=== PATIENT | male | born 1945 | race Caucasian/White ===

== ENCOUNTER 2018-06-12 04:35 | Inpatient (IN) | payer MEDICARE ==
[~2018-06-12] VITALS: Ht 180.3 cm; Wt 132.0 kg
[~2018-06-12 04:35] MED LIST: ALBU90OI61 INH
[2018-06-12 04:51] LABS: BASOPHILS ABSOLUTE AUTO 0.04 K/mm3 (0.00-0.23); BASOPHILS PERCENT AUTO 1 % (0-2); EOSINOPHILS ABSOLUTE AUTO 0.09 K/mm3 (0.00-0.68); EOSINOPHILS PERCENT AUTO 1 % (0-6); Hematocrit 49.6 % (37.0-53.0); Hemoglobin 16.3 g/dL (13.5-17.5); IMMATURE GRAN ABSOLUTE AUTO 0.04 K/mm3 (0.00-0.10); IMMATURE GRAN PERCENT AUTO 1 % (0-1); LYMPHOCYTES ABSOLUTE AUTO 1.39 K/mm3 (0.84-5.20); LYMPHOCYTES PERCENT AUTO 16 % (21-46); MONOCYTES ABSOLUTE AUTO 1.11 K/mm3 (0.16-1.47); MONOCYTES PERCENT AUTO 13 % (4-13); Mean Corpuscular HGB 33.1 pg (26.0-34.0); Mean Corpuscular HGB Conc 32.9 g/dL (31.5-36.5); Mean Corpuscular Volume 101 fL (80-100); Mean Platelet Volume 10.5 fL (9.1-12.4); NEUTROPHILS ABSOLUTE AUTO 6.03 K/mm3 (1.96-9.15); NEUTROPHILS PERCENT AUTO 69 % (41-73); Platelet Count 190 K/mm3 (150-400); RDW Coefficient Variation 13.7 % (11.7-14.2); RDW Standard Deviation 51.2 fL (35.1-46.3); Red Blood Cell Count 4.93 M/mm3 (4.30-5.90)
[2018-06-12 05:02] LABS: PCO2 Arterial 46.3 mmHg (35-45); PO2 Arterial 54.6 mmHg (80-100); pH Blood Arterial 7.42 (7.35-7.45)
[2018-06-12 05:12] LABS: Alanine Aminotransfer (ALT/SGP 26 U/L (12-78); Albumin, Blood 3.6 g/dL (3.4-5.0); Albumin/Globulin Ratio 0.9 (0.8-1.8); Alk Phos 68 U/L (50-136); Anion Gap 7 mmol/L (6-16); Aspartate Aminotrans (AST/SGOT 18 U/L (12-37); Bilirubin, Total 0.6 mg/dL (0.1-1.0); Blood Urea Nitrogen 13 mg/dL (8-24); Bun/Creatinine Ratio 14.1 (12.0-20.0); CO2, Blood 30 mmol/L (21-32); Chloride, Blood 99 mmol/L (98-108); Creatinine, Blood 0.92 mg/dL (0.60-1.20); Glomerular Filtration Rate >60 (60-); Glucose, Blood 120 mg/dL (70-99); Potassium, Blood 4.2 mmol/L (3.5-5.5); Sodium, Blood 136 mmol/L (136-145); Total Protein, Blood 7.6 g/dL (6.4-8.2); Troponin I <0.015 ng/mL (0.000-0.040)
[2018-06-12] MEDS ORDERED: Albuterol2.5 MG/0.5 INH (05:13)
[2018-06-12] MEDS ORDERED: ALBU3IS INH (05:14)
[2018-06-12] MEDS ORDERED: Voltaren100 GM TOP (05:15)
[2018-06-12] MEDS ORDERED: LEVSOD150 PO (05:15)
[2018-06-12] MEDS ORDERED: MOME220I INH (05:16)
[2018-06-12] MEDS ORDERED: TRAM50 PO (05:16)
[2018-06-12] MEDS ORDERED: HYDCHL25 PO (05:17)
[2018-06-12] MEDS ORDERED: TIOT18 INH (05:27)
[2018-06-12] MEDS ORDERED: BUDE6HFA INH (05:29)
[2018-06-12] MEDS ORDERED: COMBIVENT RESPIM4 GM (05:29)
[2018-06-12] MEDS ORDERED: COMBIVENT RESPIM4 GM INH (05:30)
[2018-06-12 07:24] LABS: Adenovirus Not Detected (NOT DETECT); Bordetella pertussis Not Detected (NOT DETECT); Chlamydophila pneumoniae Not Detected (NOT DETECT); Coronavirus 229E Not Detected (NOT DETECT); Coronavirus HKU1 Not Detected (NOT DETECT); Coronavirus NL63 Not Detected (NOT DETECT); Coronavirus OC43 Not Detected (NOT DETECT); Human Metapneumovirus Not Detected (NOT DETECT); Human Rhinovirus/Enterovirus Not Detected (NOT DETECT); Influenza A/2009-H1 Not Detected (NOT DETECT); Influenza A/H1 Not Detected (NOT DETECT); Influenza A/H3 Not Detected (NOT DETECT); Influenza B Not Detected (NOT DETECT); Mycoplasma pneumoniae Not Detected (NOT DETECT); Parainfluenza Virus 1 Not Detected (NOT DETECT); Parainfluenza Virus 2 Not Detected (NOT DETECT); Parainfluenza Virus 4 Not Detected (NOT DETECT); Respiratory Syncytial Virus Not Detected (NOT DETECT)
--- NOTE | 2018-06-12 08:05 | NUR ---
ADMISSION ASSESSMENT: Pt arrived to room pcu 7 from ER via gurney. LS very coarse with wheezes and some rhonci in the bases. HR tachy but regular rhythm. BT positive. ABD distended but Pt states it is his normal. Pulses palp. Pt very SOB with any movement or talking. Labored breathing at rest. BIox 93% on 2l NC. Encouraged pt to wear bipap but refused at this time. Oriented to room and unit. Pt denies other needs at this time. Will continue to monitor.
[2018-06-12 08:36] LABS: Influenza A Not Detected (NOT DETECT); Parainfluenza Virus 3 Detected (NOT DETECT)
--- NOTE | 2018-06-12 19:58 | NUR ---
SHIFT SUMMARY: Pt has been resting in recliner for the majority fo the day. Pt still very SOB with any kind of exertion or talking. BIox has remained >90% on 2l or BIpap at 35%. Pt has tolerated the BIPap this afternoon and was able to nap without difficulty. VSS throughout shift. No changes in his LS through shift. HR has been SR to ST throughout shift. Will report to night rn.
--- NOTE | 2018-06-12 22:38 | NUR ---
ASSUMED CARE OF PATIENT AT APPROXIMATELY 1905 FROM BRIDGET Carvajal RN. PATIENT ALERT AND ORIENTED X4. PATIENT REPORTS DURING SHIFT CHANGE THAT HE FEELS VERY DEPRESSED; DURING SHIFT ASSESSMENT PATIENT REPORTS THAT HE DOESNT FEEL SUICIDAL BUT IF "I WAS GIVEN A PILL" THAT WOULD PUT HIM TO SLEEP FOREVER, HE "WOULD TAKE IT"; PATIENT EXPRESSES FEELING SAD ABOUT NOT GETTING OUT OF HIS HOUSE VERY OFTEN DUE TO THE SHORTNESS OF BREATH. PATIENT DENIES PAIN, CP/PRESSURE, DIZZINESS OR NAUSEA. PATIENT HAS CHRONIC N/T. ST ON TELE; OXYGEN SATURATION ABOVE 90% ON 2LPM VIA; PATIENT WILL WEAR BIPAP LATER TONIGHT WHEN HE GOES TO BED. PATIENT REPORTS HE WILL SLEEP IN RECLINER TONIGHT; HE REPORTS HE HASN'T SLEPT IN A BED IN OVER 2 YEARS. PIV S/L. PATIENT CURRENTLY SLEEPING IN RECLINER; CALL LIGHT IN REACH; WILL CONTINUE TO MONITOR AND ASSESS UNTIL END OF SHIFT.
[2018-06-13 04:08] LABS: Hematocrit 52.2 % (37.0-53.0); Mean Corpuscular HGB 31.9 pg (26.0-34.0); Mean Corpuscular HGB Conc 32.6 g/dL (31.5-36.5); Mean Platelet Volume 10.8 fL (9.1-12.4); Platelet Count 194 K/mm3 (150-400); RDW Coefficient Variation 13.5 % (11.7-14.2); RDW Standard Deviation 49.1 fL (35.1-46.3); Red Blood Cell Count 5.33 M/mm3 (4.30-5.90); White Blood Cell Count 14.01 K/mm3 (4.00-11.30)
[2018-06-13 04:09] LABS: Mean Corpuscular Volume 98 fL (80-100)
[2018-06-13 04:57] LABS: Anion Gap 8 mmol/L (6-16); CO2, Blood 27 mmol/L (21-32); Calcium, Blood 8.6 mg/dL (8.5-10.1); Glucose, Blood 145 mg/dL (70-99)
[2018-06-13 04:59] LABS: Alanine Aminotransfer (ALT/SGP 24 U/L (12-78); Albumin, Blood 3.4 g/dL (3.4-5.0); Albumin/Globulin Ratio 0.8 (0.8-1.8); Alk Phos 65 U/L (50-136); Aspartate Aminotrans (AST/SGOT 21 U/L (12-37); Bilirubin, Total 0.3 mg/dL (0.1-1.0); Blood Urea Nitrogen 23 mg/dL (8-24); Bun/Creatinine Ratio 29.9 (12.0-20.0); Chloride, Blood 101 mmol/L (98-108); Creatinine, Blood 0.77 mg/dL (0.60-1.20); Globulin, Blood 4.3 g/dL (2.2-4.0); Glomerular Filtration Rate >60 (60-); Potassium, Blood 4.6 mmol/L (3.5-5.5); Sodium, Blood 136 mmol/L (136-145); Total Protein, Blood 7.7 g/dL (6.4-8.2)
--- NOTE | 2018-06-13 06:09 | NUR ---
NO ACUTE CHANGES TO REPORT. PATIENT SLEPT WITH BIPAP ON FOR ABOUT SIX HOURS LAST NIGHT. WOKE UP AND STATED THE MASK GAVE HIM A HEADACHE; MEDICATED PER EMAR. PATIENT APPREARS ANXIOUS AT TIMES; TALKS AND DESATS TO HIGH 80'S; 2LPM VIA NC. PATIENT SLEPT IN RECLINCER MOST OF THE NIGHT; SLEPT A TOTAL OF APPROXIMATELY NINE HOURS. WILL CONTINUE TO MONITOR AND ASSESS UNTIL END OF SHIFT.
--- NOTE | 2018-06-13 07:45 | NUR ---
INITIAL ASSESSMENT: Pt sitting up in recliner chair on 3.5L oxygen per NC. Pt SOB with talking or any exertion at all. LS very diminished with wheezing throughout. BT positive, ABD distended but soft. HR reg. Pulses palp. Pt jokes around alot and states that this is his way of coping or "covering up" how depressed he is. VSS. Pt c/o pain in his headache and his chest when he coughs. Will treat per orders with tylenol..
--- NOTE | 2018-06-13 18:31 | NUR ---
shift summary: Pt sitting up in recliner chair on 3L NC oxygen. He has maintained his oxygen >90% on 3L nc or Bipap at 30% FIO2. The only time pt's oxygen decreased was when he removed his bipap and forgot to replace the oxygen. During these few minutes pt biox decreased to 84% on RA. REcovered quickly on the 3L NC. HR has remained stable in the 80-90's. Pt still seems to be depressed but he seems to be enjoying having people around to talk to. He is not suicidal at this time. Will continue to monitor for changes in his mood. No acute chages through shift. Will report to night RN.
--- NOTE | 2018-06-13 20:55 | NUR ---
PM NOTE. ASSUMED CARE OF PT APROX 1900, PT IS A&Ox4, PLEASENT AND COOPERATIVE WITH CARE BUT VERY ANXIOUS ABOUT HIS CURRENT HEALTH STATUS. PT WAS ADMITTED DUE TO COPD EXAC. PT IS ON 3.5L NC OR BIPAP AT 10/5 AND 30%. TELE INTAC, NSR W/PACS AND PVCS IN THE 90'S PER ROPING TENDER, BP 169/95, PT WAS VERY ANXIOUS DURING THE TIME THIS BP WAS TAKEN. 1+ EDEMA NOTED TO THE PT'S BLE. L/S DIM T/O W/WHEEZES. BT PRESENT BUY HYPOACTIVE, LARGE VENTRAL HERNIA NOTED TO PT'S ABD. ABD IS SOFT AND NONTENDER TO PALP. PT IS UP IN RECLINER CHAIR WITH BIPAP ON, PT IS VERY ANXIOUS, TALKING ABOUT HOW HE IS FEELING LIKE HIS LUNGS ARE "FILLING UP AND I CAN'T GET A COMPLETE BREATH IN." PT'S RR IS 31, LABORED BUT EVEN WITH ACCESSORY MUSCLE USE. CALL LIGHT IN REACH, BED IS LOCKED AND LOW, WILL CONTINUE TO MONITOR.
--- NOTE | 2018-06-13 22:24 | NUR ---
PT UPDATE... PROVIDER WAS CALLED WITH PT STATUS UPDATE, ORDERS WERE OBTAINED FOR ANTI-ANXIETY MEDICATION FOR THIS PT. MEDICATION WAS GIVEN PER ORDER, PT APPEARES TO BE RELAXED W/EYES CLOSED, RR HAS DECREASED FROM 31 TO 24 AND O2 STATS ARE 95 ON BIPAP. WILL CONTINUE TO MONITOR PT.
--- NOTE | 2018-06-14 06:33 | NUR ---
SHIFT SUMMARY. AT 0235 PT CONVERTED FROM A NSR TO SVT WITH RATES IN THE 180'S-190'S, PT WAS ON THE BIPAP AT THE TIME. HE WAS IN SVT FOR APROX 8 MINS BEFORE HE WAS ABLE TO VAGLE HIMSELF AND CONVERTED BACK TO NSR. PT'S BP WAS STABLE AT THIS TIME WELL HIS O2 STATS. A PALLIATIVE CARE CONSULT WAS PLACED DUE TO PT'S DEPRESSION AND SYMPTOM MANAGMENT NEEDS. PT WAS TALKING TO THIS RN ABOUT END OF LIFE ISSUES AND IS VERY FEARFUL OF BEING IN DISTRESS DURING HIS FINAL HOURS, THIS RN PROVIDED THERAPUTIC COMMUNICATION AND REASSURANCE. CALL LIGHT IN REACH,BED IS LOCKED AND LOW WILL CONTINUE TO MONITOR UNTIL REPORT IS GIVEN TO ONCOMING RN.
--- NOTE | 2018-06-14 18:10 | NUR ---
END OF SHIFT; PT REMAINS SITTING IN CHAIR NEXT TO HIS BED THROUGHOUT DAY. ONLY GETTING UP TO USE COMMODE X 1. HE REPOSTIONS HIMSELF IN CHAIR THROUGHOUT DAY. HE HAS PLEASANT AFFECT. LUNGS ARE DIM AND COARSE THROUGHOUT. EXPIRATORY WHEEZES ARE NOTED AT THIS TIME. HE IS AO X 4. PROCESS SAFETY SPECIALIST MET WITH PATIENT TODAY ABOUT HIS LIVING ARRANGEMENTS AND HIS DC. PER PATIENT HE IS REFUSING TO GO TO A SNF FACILITY. [facility] ONT[facility] TO MONITOR THIS PATIENT UNTIL REPORT AND HAND OFF TO NOC SHIFT RN.
--- NOTE | 2018-06-14 20:10 | NUR ---
PM NOTE. ASSUMED CARE OF PT APROX 1900. PT IS A&Ox4 PLEASENT, TALKATIVE AND COOPERATIVE WITH CARE. PT WAS ADMITTED DUE TO COPD EXC. ON 3L NC AND BIPAP PRN/SLEEP. PT'S WORK OF BREATHING AND RESPIRATORY STATSUS SEEMS IMPROVED FROM PREVIOUS SHIFT. PT IS ABLE TO TOLERATE BEING OFF OF THE BIPAP MORE THAN PREVIOUS SHIFT, HE APPEARS TO BE LESS ANXIOUS AND MORE CHEERFUL. TELE INTACT, SR IN THE 80'S PER LITURGICAL MUSIC DIRECTOR. PT'S BP 146/83. 2+ EDEMA NOTED TO THE PT'S BLE. L/S WHEEZES AND DIM T/O WITH COARSE BASES. PT STATS >90% ON 3L NC AT THIS TIME. BT PRESENT AND HYPERACTIVE, PT STATED HE HAD A BM EARLIER TODAY. PT STATED "MY BUTT REALLY HURTS, WILL YOU PLEASE LOOK AT IT." THIS RN PROVIDED EVELIA AND SKIN CARE TO THIS PT. PT'S GLUTIAL FOLD/RECTAL AREA WERE VERY RED, SORE AND MOIST, THIS AREA WAS CLEANED AND BARRIER CREAM APPLIED. PT IS VOIDING YELLOW URINE IN URINAL AT THE BEDSIDE. CALL LIGHT IN REACH, BED IS LOCKED AND LOW, WILL CONTINUE TO MONITOR.
--- NOTE | 2018-06-15 01:48 | NUR ---
PT UPDATE... THIS RN WAS NOTIFED BY THE MUTUAL FUNDS AGENT THAT THE PT'S RATE HAD INCREASED TO THE 140'S-150'S. THIS RN OBTAINED AN EKG THAT SHOWED THE PT HAD CONVERTED TO AFIB W/RVR. PT'S BP WAS 137/88. PROVIDER WAS CALLED AND ORDERS OBTAINED. MEDS GIVEN PER ORDER. PT'S VS STILL AT 133/89, HR 120-'S-130'S AFIB RVR. WILL CONTINUE TO MONITOR
[2018-06-15 03:54] LABS: BASOPHILS ABSOLUTE AUTO 0.04 K/mm3 (0.00-0.23); BASOPHILS PERCENT AUTO 0 % (0-2); EOSINOPHILS ABSOLUTE AUTO 0.06 K/mm3 (0.00-0.68); EOSINOPHILS PERCENT AUTO 1 % (0-6); Hematocrit 53.1 % (37.0-53.0); Hemoglobin 16.9 g/dL (13.5-17.5); IMMATURE GRAN ABSOLUTE AUTO 0.08 K/mm3 (0.00-0.10); IMMATURE GRAN PERCENT AUTO 1 % (0-1); LYMPHOCYTES ABSOLUTE AUTO 3.55 K/mm3 (0.84-5.20); LYMPHOCYTES PERCENT AUTO 27 % (21-46); MONOCYTES ABSOLUTE AUTO 1.25 K/mm3 (0.16-1.47); MONOCYTES PERCENT AUTO 9 % (4-13); Mean Corpuscular HGB 32.1 pg (26.0-34.0); Mean Corpuscular HGB Conc 31.8 g/dL (31.5-36.5); Mean Corpuscular Volume 101 fL (80-100); NEUTROPHILS ABSOLUTE AUTO 8.34 K/mm3 (1.96-9.15); NEUTROPHILS PERCENT AUTO 63 % (41-73); Platelet Count 186 K/mm3 (150-400); RDW Coefficient Variation 13.3 % (11.7-14.2); RDW Standard Deviation 50.4 fL (35.1-46.3); Red Blood Cell Count 5.27 M/mm3 (4.30-5.90); White Blood Cell Count 13.32 K/mm3 (4.00-11.30)
[2018-06-15 04:16] LABS: Albumin, Blood 3.2 g/dL (3.4-5.0); Anion Gap 6 mmol/L (6-16); Blood Urea Nitrogen 28 mg/dL (8-24); Bun/Creatinine Ratio 31.7 (12.0-20.0); CO2, Blood 30 mmol/L (21-32); Chloride, Blood 101 mmol/L (98-108); Creatinine, Blood 0.88 mg/dL (0.60-1.20); Glomerular Filtration Rate >60 (60-); Glucose, Blood 119 mg/dL (70-99); Magnesium, Blood 2.1 mg/dL (1.6-2.4); Phosphorus, Blood 3.3 mg/dL (2.5-4.9); Potassium, Blood 4.4 mmol/L (3.5-5.5); Sodium, Blood 137 mmol/L (136-145)
--- NOTE | 2018-06-15 06:50 | NUR ---
SHIFT SUMMARY. AT APROX 0145 PT CONVERTED INTO AFIB. PROVIDER CALLED AND ORDERS FOR LOPRESSOR IV PUSH WERE OBTAINED. PT'S RATE SLOWED BUT DID NOT CONVERT. SLOWLY PT STARTED TO TREND FROM THE 110-120'S BACK TO THE 140'S. AT APROX 0640 PROVIDER CALLED AND ORDERS FOR CARDIZEM IV BOLUS AND DRIP WERE GIVEN. AT 0645 PT BEGAN TO GET SOB STATING THAT HE DID NOT FEEL LIKE HE COULD TAKE A BREATH, PT WAS PLACED ON BIPAP AND CARDIZEM DRIP 5MG WAS STARTED AT 0650. PT STATED TO THIS RN THAT HE WAS "VERY TIRED." AND JUST FELT "WIPED OUT." PT'S ANXIETY ALSO IS INCREASING. THIS RN PROVIDED THERAPUTIC COMMUNICATION TO PT. PT DENIES ANY CHEST PAIN/PRESSSURE OR N/V CALL LIGHT IN REACH, WILL CONTINUE TO MONITOR UNTIL REPORT IS GIVEN TO ONCOMING RN
--- NOTE | 2018-06-15 12:41 | NUR ---
PT CONVERTS TO NORMAL SINUS RYTHM AT 75 BEATS PER MIN, CARDIZEM DRIP IS STOPPED. PT IS SITTING IN RECLINER CHAIR IN ROOM. DOES NOT WANT TO GO TO BED. HAS BEEN SITTING IN CHAIR SINCE ARRIVAL TO UNIT 3 DAYS AGO. STATES HE HAS NOT BEEN IN A BED SINCE 2013. PT/OT WORK WITH PATIENT TODAY. PT REFUSED BREAKFAST THIS AM STATING HE WAS NOT FEELING WELL. IS CURRENTLY SITTING UP IN CHAIR EATING LUNCH. BIPAP WAS REMOVED AT 1030 AM PER PATIENT REQUEST. [facility] ONTINUE TO MONITOR THIS PATIENT CLOSELY.
--- NOTE | 2018-06-15 15:22 | NUR ---
Spiritual care visit conducted. Patient was sitting up in his chair and alert. Patient was very talktive and shared that he is struggling with his current situation with his health and living situation. I listened empathically, explored his amish belief system and reinforced helpful attitudes and practices. Patient responded well showing signs of reduced stress and catharsis.
--- NOTE | 2018-06-15 18:12 | NUR ---
END OF SHIFT; PATIENT WORKED WITH PT/OT TODAY. HE IS UNABLE TO WALK TO THE BATHROOM AND BACK WITH OUT SEVERE HYPOXIA. PT IS NOTED TO TRY AND AMBULATE TO BATHROOM WITHOUT ASKING FOR ASSISTANCE AND WAS FOUND STANDING IN CENTER OF ROOM. PATIENT IS ASSISTED BACK TO CHAIR AND CHAIR ALARM IS PLACED. PT VERBALIZED UNDERSTANDING THAT HE SHOULD NOT GET UP WITHOUT ASSISTANCE HOWEVER IS NOTED MULTIPLE TIMES DURING AFTERNOON TO STAND UP WITHOUT USING HIS CALL LIGHT FOR ASSISTANCE. PT DOES NOT USE BIPAP DURING DAY. HIS LUNGS ARE COARSE THROUGHOUT AND DIM IN THE BASES AT THIS TIME. HE IS AO X 4. PATIENT CONVERTED FROM AFIB EARLY THIS AFTERNOON TO NSR. WILL CONTINUE TO MONITOR THIS PATIENT CLOSELY UNTIL REPORT AND HAND OFF TO NOC SHIFT RN.
--- NOTE | 2018-06-16 04:37 | NUR ---
SHIFT SUMMARY PT A&O X4. LUNG SOUNDS COARSE W/ WHEEZE T/O. SPO2 > 92% ON 3L NC. PT SOB W/ ACTIVITY. MONITOR SHOWS NSR, HR 80'S-90'S. ABD DISTENDED, PT STATES NORMAL. ABD HERNIA NOTED. COCCYX PURPLE/RED IN COLOR, PT STATES AREA TO BE TENDER. NYSTATIN POWDER APPLIED INSTRUCTED. PT SLEEPING IN RECLINER CHAIR T/O SHIFT PER PT PREFERENCE. PT STATES "IT'S BEEN YEARS SINCE I'VE SLEPT IN A BED. I FEEL SMOTHERED IF I TRY TO SLEEP IN A BED." CALL LIGHT IN REACH OF PT, BUT PT NOT USING CALL LIGHT APPROPRIATELY DESPITE INSTRUCTION. PT EXPRESSES FRUSTRATION W/ HAVING TO CALL FOR ASSISTANCE TO USE BATHROOM, CONCERNS FOR PT SAFETY FURTHER DISCUSSED W/ PT. CHAIR ALARM ON. WILL CONTINUE TO MONITOR AND ASSESS THIS. WILL ALSO CONTINUE TO MONITOR AND PROVIDE CARE UNTIL REPORT OFF TO DAY SHIFT RN.
[2018-06-16 04:38] LABS: PO2 Arterial 68.3 mmHg (80-100); pH Blood Arterial 7.39 (7.35-7.45)
--- NOTE | 2018-06-16 08:00 | NUR ---
PT PLEASANT VERY TALKATIVE. DENIES PAIN.. SOMEWHA ANXIOUS. H/R REG, NO MURMER NOTED. PER TELE S/R AT 90. LUNGS WHEEZY T/O. ON 3L O2 N/C. RESP EASY UNLABORED. BT X4 LAST BM 2 DAYS. PT STATES LARGE ABD FIRM IS NORM FOR HIM. VOIDS URINAL. SBA TO BEDSIDE COMMODE. SOB WITH ACTIVITY. BED IN LOW POSITION, CALL LITE IN REACH, CALLS APPROP. BED ALARM ON FOR SAFETY CAN BE IMPULSIVE.
--- NOTE | 2018-06-16 11:43 | NUR ---
MOVING TO [facility]. NO TELE. ADVISED PT
--- NOTE | 2018-06-16 11:55 | NUR ---
CALLED REPORT TO TITI JAMES. PT MOVING TO [facility] NO TELE.
--- NOTE | 2018-06-16 13:18 | NUR ---
PT ARRIVED TO THE MEDICAL FLOOR FROM THE PCU, VIA WHEELCHAIR, A/OX3, PLEASANT AND COOPERATIVE, REPORT TAKEN FROM KEISHA QIU, THE PTS BREATH SOUND WERE DECREASED T/O ON ARRIVAL TO THE FLOOR, PT IS ON 3L/MIN O2 VIA NC, THE PT WAS ORIENTED TO THE ROOM LAYOUT AND CALL SYSTEM, CALL LIGHT IN REACH, WILL CONTINUE TO MONITOR AND ASSESS FOR CHANGES
--- NOTE | 2018-06-16 16:10 | NUR ---
PT A/OX3, PLEASANT AND COOPERATIVE, APPEARS TO BE BREATHING EASILY ON O2 @ 3L/MIN, PT DENIED ANY PAIN SO FAR THIS SHIFT, PT IS UP IN THE CHAIR AT THIS TIME, THE PT WAS A TRANSFER FROM PCU TODAY, CALL LIGHT IN REACH, WILL CONTINUE TO MONITOR AND ASSESS FOR CHANGES
--- NOTE | 2018-06-17 06:38 | NUR ---
SHIFT SUMMARY PT SLEPT AWAKE ON/OFF T/O NIGHT, REPORTS THAT IS HIS "NORMAL." AOX4. VSS. DENIES PAIN OR N/V. PT REPORTS INCREASED SOB W/ACTIVITY. LUNGS HAVE EXPIRATORY WHEEZES T/O W/AUSCULTATION, BREATHING TX GIVEN PER RT PRN. PT ALSO HAS MOIST NON-PRODUCTIVE COUGH. ENCOURAGED PURSED LIP BREATHING, FLUTTER VALVE & PO FLUID INTAKE. SPO2 @ 96% ON 3L O2. PT REPORTED INCREASED ANXIETY AROUND 0120, PT MEDICATED 1X W/XANAX PER ORDERS. CALL LIGHT IN REACH & PT HAS SLEPT IN RECLINER T/O NIGHT.
--- NOTE | 2018-06-17 17:56 | NUR ---
SUMMARY PT SITTING UP IN THE RECLINER EATING HIS DINNER, PT HAS BEEN PLEASANT AND COOPERATIVE WITH CARE, VSS, NO ACUTE CHANGES, WILL CONT TO MONITOR
--- NOTE | 2018-06-18 05:12 | NUR ---
SHIFT SUMMARY NO ACUTE CHANGES THIS SHIFT. PT AOX4. VSS. PT DENIES PAIN, N/V OR SOB WHILE @ REST. BREATHING IS E/U W/SPO2 @94% ON 3L. CALL LIGHT IS IN REACH & PT HAS BEEN SLEEPING IN RECLINER T/O NIGHT.
--- NOTE | 2018-06-18 17:07 | NUR ---
SHIFT SUMMARY PT HAS HAD NO COMPLAINTS THIS SHIFT. PT GAVE SELF A BED BATH THIS SHIFT. APPETITE HAS BEEN GOOD. PT CONTINUES TO HAVE SHORTNESS OF BREATH WITH EXERTION BUT ABLE TO AMBULATE IN ROOM WITH 2L OXYGEN VIA NC. NO ACUTE CHANGES AT THIS TIME. WILL CONTINUE TO MONITOR AND REPORT TO ONCOMING RN.
--- NOTE | 2018-06-18 17:24 | NUR ---
Initial Visit: Palliative Care Consult for goals of care and AD. Pt is A&O and denies pain at this time. Pt reports that discharge planners are recommending him to discharge to SNF and he states that this is not what he wants. He reports that he is on a limited income and any out of pocket expenses or co-pays will not be affordable for him. He states that he knows all the exercises to gain his strength and does not feel rehabilitation at a SNF would be beneficial and can do these things by himself. Discussed POLST/AD and he reports that he will complete POLST by tomorrow. Plan for RN to obtain completed POLST and will remain available for therapeutic visits.
--- NOTE | 2018-06-19 04:43 | NUR ---
SHIFT SUMMARY PT HAS BEEN RESTING WELL THROUGHOUT SHIFT. PT HAD NO ACUTE ISSUES NOTED. PT DENIES ANY DISCOMFORT. PT CONTINUES TO PREFER TO SLEEP IN THE RECLINER. PT IS BREATHING EASY AND CALL LIGHT IN REACH.
--- NOTE | 2018-06-19 09:51 | NUR ---
Pt visit this AM. Pt reports no concerns at this time. New POLST form completed and signed by Pt. Attempted to contact Dr Mueller and left message with a request for her to sign POLST. Spoke with Pt's nurse and she reports no concerns at this time. Will remain available.
[2018-06-19] MEDS ORDERED: ALPR.25 PO (12:03)
[2018-06-19] MEDS ORDERED: AZIT250 PO (12:04)
[2018-06-19] MEDS ORDERED: DILT120ERA PO (12:05)
[2018-06-19] MEDS ORDERED: BUSP10 PO (12:05)
[2018-06-19] MEDS ORDERED: DOCU100 PO (12:06)
[2018-06-19] MEDS ORDERED: GUAIFENESIN1200 MG PO (12:07)
[2018-06-19] MEDS ORDERED: Pedi-Dri 100,0060 GM TOP (12:09)
[2018-06-19] MEDS ORDERED: NICO21TP TOP (12:11)
[2018-06-19] MEDS ORDERED: PRED10 PO (12:12)
--- NOTE | 2018-06-19 14:41 | NUR ---
PT REFUSED HOME HEALTH. AWAITING HOME 02 EQUIPMENT FROM [facility] BEFORE DISCHARGE.
--- NOTE | 2018-06-19 18:41 | NUR ---
DISCHARGE NOTE PT DISCHARGED VIA W/C VAN WITH [facility]. IV DISCONTINUED INTACT. HOME O2 PROVIDED BY [facility]. PT VERBALIZED UNDERSTANDING OF DISCHARGE INSTRUCTIONS AND IMPORTANCE OF FOLLOWING UP WITH [facility] WITHIN 7-10 DAYS.
== END 2018-06-19 18:35 | disposition home health service (06) | DRG 193 ==
LOC: ER 04:35 → ERHOLD 06:07 → PCU 06:07 → MEDS 06-16 12:30
PROVIDERS: Emergency Medicine; Internal Medicine; ADMIT Internal Medicine
PROC: 5A09557 Assistance with Respiratory Ventilation, Greater than 96 Consecutive Hours, Continuous Positive Airway Pressure (ICD-10-PCS; principal; 2018-06-12)
DX: J10.1 Influenza due to other identified influenza virus with other respiratory manifestations (principal); J96.01 Acute respiratory failure with hypoxia; J44.1 Chronic obstructive pulmonary disease with (acute) exacerbation; I48.0 Paroxysmal atrial fibrillation; Z79.01 Long term (current) use of anticoagulants; F41.8 Other specified anxiety disorders; E66.01 Morbid (severe) obesity due to excess calories; L30.4 Erythema intertrigo; R53.81 Other malaise; F17.210 Nicotine dependence, cigarettes, uncomplicated; E03.9 Hypothyroidism, unspecified
CPT/HCPCS: 36415; 36600; 71045; 80053; 80069; 82803; 83735; 84484; 85025; 85027; 87070; 87205; 87486; 87581; 87633; 87798; 93005; 93010; 94640; 94644; 94660; 94667; 94760; 94761; 94762; 96365; 96375; 97110; 97116; 97162; 97166; 97530; 97535; 99285-25; J0456; J1650; J2405; J2930; J7050

== ENCOUNTER 2021-07-25 04:38 | Inpatient (IN) | payer OTHER ==
[~2021-07-25] VITALS: Ht 180.3 cm; Wt 105.9 kg
[~2021-07-25 04:38] MED LIST changes: +ALBU3IS INH; +ALPR.25 PO; +AZIT250 PO; +Albuterol2.5 MG/0.5 INH; +BUDE6HFA INH; +BUSP10 PO; +COMBIVENT RESPIM4 GM; +COMBIVENT RESPIM4 GM INH; +DILT120ERA PO; +DOCU100 PO; +GUAIFENESIN1200 MG PO; +HYDCHL25 PO; +LEVSOD150 PO; +METSALMENC TOP; +MOME220I INH; +NICO21TP TOP; +PRED10 PO; +PRED20 PO; +Pedi-Dri 100,0060 GM TOP; +TIOT18 INH; +TRAM50 PO; +Voltaren100 GM TOP
[2021-07-25 04:57] LABS: BASOPHILS ABSOLUTE AUTO 0.09 K/mm3 (0.00-0.23); BASOPHILS PERCENT AUTO 1 % (0-2); EOSINOPHILS ABSOLUTE AUTO 0.32 K/mm3 (0.00-0.68); EOSINOPHILS PERCENT AUTO 2 % (0-6); Hematocrit 44.3 % (37.0-53.0); Hemoglobin 14.4 g/dL (13.5-17.5); IMMATURE GRAN ABSOLUTE AUTO 0.06 K/mm3 (0.00-0.10); IMMATURE GRAN PERCENT AUTO 0 % (0-1); LYMPHOCYTES ABSOLUTE AUTO 2.29 K/mm3 (0.84-5.20); LYMPHOCYTES PERCENT AUTO 17 % (21-46); MONOCYTES PERCENT AUTO 8 % (4-13); Mean Corpuscular HGB 32.9 pg (26.0-34.0); Mean Corpuscular HGB Conc 32.5 g/dL (31.5-36.5); Mean Corpuscular Volume 101 fL (80-100); Mean Platelet Volume 10.8 fL (9.1-12.4); NEUTROPHILS ABSOLUTE AUTO 9.53 K/mm3 (1.96-9.15); NEUTROPHILS PERCENT AUTO 71 % (41-73); Platelet Count 246 K/mm3 (150-400); RDW Coefficient Variation 13.4 % (11.7-14.2); RDW Standard Deviation 50.6 fL (35.1-46.3); Red Blood Cell Count 4.38 M/mm3 (4.30-5.90); White Blood Cell Count 13.39 K/mm3 (4.00-11.30)
[2021-07-25 05:19] LABS: Alanine Aminotransfer (ALT/SGP 29 U/L (12-78); Albumin, Blood 2.9 g/dL (3.4-5.0); Albumin/Globulin Ratio 0.7 (0.8-1.8); Alk Phos 57 U/L (50-136); Anion Gap 5 mmol/L (6-16); Aspartate Aminotrans (AST/SGOT 21 U/L (12-37); Bilirubin, Total 0.4 mg/dL (0.1-1.0); Blood Urea Nitrogen 15 mg/dL (8-24); Bun/Creatinine Ratio 21.2 (12.0-20.0); CO2, Blood 28 mmol/L (21-32); Calcium, Blood 8.7 mg/dL (8.5-10.1); Chloride, Blood 106 mmol/L (98-108); Creatinine, Blood 0.71 mg/dL (0.60-1.20); Globulin, Blood 4.2 g/dL (2.2-4.0); Glomerular Filtration Rate >60 (60-); Glucose, Blood 107 mg/dL (70-99); Potassium, Blood 4.8 mmol/L (3.5-5.5); Sodium, Blood 139 mmol/L (136-145); Total Protein, Blood 7.1 g/dL (6.4-8.2)
[2021-07-25 05:48] LABS: Influenza A, PCR NEGATIVE (NEGATIVE); Influenza B, PCR NEGATIVE (NEGATIVE); Resp Syncytial Virus, PCR NEGATIVE (NEGATIVE); SARS-Cov-2 (COVID-19) PCR, MMC NEGATIVE (NEGATIVE)
[2021-07-25 12:03] LABS: Source, Urine Clean Catch
[2021-07-25 12:07] LABS: Bilirubin, Urine Neg (Neg); Blood, Urine 2+ (Neg); Glucose Qualitative, Urine 1+ (Neg); Ketones, Urine Neg (Neg); Leukocyte Esterase, Urine Neg (Neg); Nitrite, Urine Neg (Neg); Protein, Urine Neg (Neg); Specific Gravity, Urine 1.025 (1.003-1.022); Urobilinogen, Urine NORM (Normal)
[2021-07-25 12:18] LABS: Color, Urine Pale Yellow (P-Yellow)
[2021-07-25 12:19] LABS: Appearance, Urine Hazy (Clear)
[2021-07-25 12:20] LABS: Bacteria Few /hpf; Mucus Mod (0-Heavy); Squamous Epithelial Cells Rare /hpf (Few); White Blood Cells, Urine 0-2 /hpf (0-5)
--- NOTE | 2021-07-25 18:02 | NUR ---
SHIFT SUMMARY PT IS ALERT AND ORIENTED X4, HE USES HIS CALL LIGHT APPROPRIATELY AND IS PLEASANT AND COOPERATIVE WITH CARE. PT CAME TO PCU AT APPROX. 0910 ON 6L VIA NC BUT IS NOW AT 2L VIA NC WITH SPO2 MAINTAINING AT 98%. HE WILL BECOME SHORT OF BREATH WHEN TALKING AND WITH EXERTION BUT SPO2 WILL MAINTAIN ABOVE 95%. HE HAS DENIED CHEST PAIN/PRESSURE, TELE MONITORING IN PLACE, PT IN SR 90'S WITH PAC'S PER TELE REPORT. IV IN LEFT AC IS SALINE LOCKED. HE HAS ALSO DENIED FEELINGS OF NAUSEA/VOMITTING. PT WILL VOID USING BEDSIDE URINAL AND WILL STAND AT SIDE OF BED TO VOID WITH 1 PERSON SBA. CALL LIGHT IS IN REACH, BED IN LOW. WILL CONTINUE TO MONITOR UNTIL REPORT GIVEN.
[2021-07-26 05:05] LABS: Hematocrit 42.5 % (37.0-53.0); Hemoglobin 13.6 g/dL (13.5-17.5); Mean Corpuscular HGB 32.5 pg (26.0-34.0); Mean Corpuscular Volume 101 fL (80-100); Platelet Count 196 K/mm3 (150-400); RDW Coefficient Variation 13.3 % (11.7-14.2); RDW Standard Deviation 50.3 fL (35.1-46.3); Red Blood Cell Count 4.19 M/mm3 (4.30-5.90); White Blood Cell Count 17.54 K/mm3 (4.00-11.30)
--- NOTE | 2021-07-26 05:13 | NUR ---
SHIFT SUMMARY PT AXO. ON 2LNC. STARTED SHIFT IN SR, CONVERTED TO AFIB RVR 150'S HR. CARDIZEM 10MG PUSH ADMINISTERED, PT CONVERTED BACK TO SR 80'S WITHIN AN HOUR. PT WONDERS IF HE DOES THIS OFTEN DUE TO SYMPTOMS HE WAS FEELING/RECONGNIZED FROM THE PAST. PT REMAINS ON 2LNC. OCCASIONALLY PRODUCTIVE COUGH NOTED. PT UNAWARE OF COLOR DUE TO SWALLOWING IT. PT VOIDING OFTEN, STANDS AT BEDSIDE WITH WALKER, SBA. OTHERWISE, PT RESTING IN BED. BED IN LOW POSITION. CALL LIGHT WITHIN REACH.
[2021-07-26 05:44] LABS: Anion Gap 5 mmol/L (6-16); Blood Urea Nitrogen 16 mg/dL (8-24); Bun/Creatinine Ratio 22.3 (12.0-20.0); CO2, Blood 30 mmol/L (21-32); Calcium, Blood 8.7 mg/dL (8.5-10.1); Chloride, Blood 103 mmol/L (98-108); Creatinine, Blood 0.72 mg/dL (0.60-1.20); Glomerular Filtration Rate >60 (60-); Glucose, Blood 145 mg/dL (70-99); Potassium, Blood 4.6 mmol/L (3.5-5.5); Sodium, Blood 138 mmol/L (136-145)
[2021-07-26 15:39] LABS: Free Thyroxine 1.19 ng/dL (0.70-1.60); Thyroid Stimulating Hormone 1.14 uIU/mL (0.360-4.800); Triiodothyronine, Free 1.41 pg/mL (2.18-3.98)
--- NOTE | 2021-07-26 17:44 | NUR ---
SHIFT SUMMARY PT HAS BEEN RESTING IN RROM. PT HAS C/O SENSITIVITY TO LIGHT AND HAS REQUESTED THAT LIGHTS REMAIN OFF AND BLINDS REMAIN CLOSED. PT HAS DENIED C/O PAIN OR DISCOMFORT AND HAS BEEN ABLE TO REPOSTION SELF FOR PRESSURE AND COMFORT. PT HAS EXPRESSED A MILD ANXIETY OVER PRESENT ILLNESS AND A LACK OF KNOWLEDGE OF ILLNESS PROCESS. HEART RATE HAS BEEN A.FIB IN THE 110'S-130'S, BLOOD PRESSURE IN THE 150'S. PT HAS BEEN ABLE TO STAND AT BEDISDE TO URINATE, CALLS APPROPRIATELY FOR ASSISTANCE.
[2021-07-27 04:23] LABS: Albumin, Blood 2.8 g/dL (3.4-5.0); Anion Gap 4 mmol/L (6-16); Blood Urea Nitrogen 25 mg/dL (8-24); Bun/Creatinine Ratio 33.2 (12.0-20.0); CO2, Blood 32 mmol/L (21-32); Calcium, Blood 8.9 mg/dL (8.5-10.1); Chloride, Blood 103 mmol/L (98-108); Creatinine, Blood 0.75 mg/dL (0.60-1.20); Glomerular Filtration Rate >60 (60-); Glucose, Blood 157 mg/dL (70-99); Phosphorus, Blood 3.2 mg/dL (2.5-4.9); Potassium, Blood 4.8 mmol/L (3.5-5.5); Sodium, Blood 139 mmol/L (136-145)
--- NOTE | 2021-07-27 07:20 | NUR ---
AXO X4, DENIES CHEST/PRESSURE. PT HAD TWO EPISODE AFIB WITH HEART RATE SUSTAINING IN 130s , medicated per Emar. at 0433 pt converted to sinus rythyme with PACs. possible dc today. call light within reach and side up x3.
[2021-07-27] MEDS ORDERED: ASPI81CH PO (11:57)
[2021-07-27] MEDS ORDERED: AZIT250 PO (12:04)
[2021-07-27] MEDS ORDERED: DILTIAZEM 24HR120 M3 PO (12:06)
[2021-07-27] MEDS ORDERED: GUAI600T33 PO (12:07)
[2021-07-27] MEDS ORDERED: LACT PO (12:08)
[2021-07-27] MEDS ORDERED: PRED20 PO (12:11)
--- NOTE | 2021-07-27 16:00 | NUR ---
DISCHARGE NOTE PT WAS TRANSPORTED BY WHEELCHAIR TO A PERSONAL VEHICLE. ALL PT BELONGINGS AND DISCHARGE INSTRUCTIONS WERE IN PT'S POSSESSION AT TIME OF TRANSPORT. PT EXPRESSED NO FURTHER QUESTIONS OR CONCERNS.
== END 2021-07-27 15:50 | disposition home or self-care (01) | DRG 872 ==
LOC: ER 04:38 → PCU 06:29
PROVIDERS: Internal Medicine; Student in an Organized Health Care Education/Training Program; ADMIT Internal Medicine
DX: A41.9 Sepsis, unspecified organism (principal); J44.1 Chronic obstructive pulmonary disease with (acute) exacerbation; J96.11 Chronic respiratory failure with hypoxia; J44.0 Chronic obstructive pulmonary disease with (acute) lower respiratory infection; I10 Essential (primary) hypertension; Z20.822 Contact with and (suspected) exposure to COVID-19; E66.9 Obesity, unspecified; F32.A Depression, unspecified; M19.90 Unspecified osteoarthritis, unspecified site; I48.0 Paroxysmal atrial fibrillation; E89.0 Postprocedural hypothyroidism; J20.9 Acute bronchitis, unspecified; F17.210 Nicotine dependence, cigarettes, uncomplicated; Z68.34 Body mass index [BMI] 34.0-34.9, adult; Z99.81 Dependence on supplemental oxygen; Z79.52 Long term (current) use of systemic steroids; Z79.899 Other long term (current) drug therapy
CPT/HCPCS: 0241U; 36415; 71045; 80048; 80053; 80069; 81001; 83605; 83880; 84145; 84439; 84443; 84481; 84484; 85025; 85027; 87040; 87070; 87205; 93005; 93010; 93306; 94640; 94644; 94645; 94762; 96365; 96366; 96368; 96375; 99285-25; A9270; J0456; J0696; J1650; J2405; J2930; J3475; J7050

== ENCOUNTER 2022-06-01 08:39 | Observation (INO) | payer OTHER ==
[~2022-06-01] VITALS: Ht 180.3 cm; Wt 102.6 kg
[~2022-06-01 08:39] MED LIST changes: +ASPI81CH PO; +DILTIAZEM 24HR120 M3 PO; +GUAI600T33 PO; +LACT PO
[2022-06-01 08:52] LABS: BASOPHILS ABSOLUTE AUTO 0.07 K/mm3 (0.00-0.23); BASOPHILS PERCENT AUTO 1 % (0-2); EOSINOPHILS ABSOLUTE AUTO 0.02 K/mm3 (0.00-0.68); EOSINOPHILS PERCENT AUTO 0 % (0-6); Hematocrit 44.5 % (37.0-53.0); Hemoglobin 15.5 g/dL (13.5-17.5); IMMATURE GRAN ABSOLUTE AUTO 0.04 K/mm3 (0.00-0.10); IMMATURE GRAN PERCENT AUTO 1 % (0-1); LYMPHOCYTES PERCENT AUTO 7 % (21-46); MONOCYTES ABSOLUTE AUTO 1.16 K/mm3 (0.16-1.47); MONOCYTES PERCENT AUTO 13 % (4-13); Mean Corpuscular HGB 33.4 pg (26.0-34.0); Mean Corpuscular HGB Conc 34.8 g/dL (31.5-36.5); Mean Corpuscular Volume 96 fL (80-100); NEUTROPHILS ABSOLUTE AUTO 6.92 K/mm3 (1.96-9.15); NEUTROPHILS PERCENT AUTO 79 % (41-73); Platelet Count 228 K/mm3 (150-400); RDW Coefficient Variation 13.3 % (11.7-14.2); RDW Standard Deviation 47.7 fL (35.1-46.3); Red Blood Cell Count 4.64 M/mm3 (4.30-5.90); White Blood Cell Count 8.81 K/mm3 (4.00-11.30)
[2022-06-01 08:55] LABS: Base Excess Venous 5.1 mmol/L; Bicarbonate Venous 28.6 mmol/L (24.0-30.0); PCO2 Venous 39.8 mmHg (38-42); PO2 Venous 87.5 mmHg (38-42); pH Blood Venous 7.47 (7.34-7.37)
[2022-06-01 09:20] LABS: Albumin, Blood 3.4 g/dL (3.4-5.0); Albumin/Globulin Ratio 0.9 (0.8-1.8); Bilirubin, Total 0.5 mg/dL (0.1-1.0); Bun/Creatinine Ratio 20.3 (12.0-20.0); Calcium, Blood 8.5 mg/dL (8.5-10.1); Creatinine, Blood 0.74 mg/dL (0.60-1.20); Globulin, Blood 3.8 g/dL (2.2-4.0); Potassium, Blood 4.2 mmol/L (3.5-5.5); Total Protein, Blood 7.2 g/dL (6.4-8.2)
[2022-06-01 09:47] LABS: Influenza A, PCR NEGATIVE (NEGATIVE); Influenza B, PCR NEGATIVE (NEGATIVE); Resp Syncytial Virus, PCR NEGATIVE (NEGATIVE); SARS-Cov-2 (COVID-19) PCR, MMC NEGATIVE (NEGATIVE)
--- NOTE | 2022-06-01 18:34 | NUR ---
SHIFT SUMMARY PATIENT ALERT AND ORIENTED X4. PATIENT CURRENTLY BEDREST DUE TO SEVERE SHORTNESS OF BREATH UPON EXERTION. PATIENT TEARFUL AND ANXIOUS UPON ARRIVAL FROM ED, NOW IS RESTING COMFORTABLY. PATIENT IS CURRENTLY SATING IN THE 90'S ON 2 LITERS O2 VIA NASAL CANULA. CALL LIGHT WITHIN REACH.
[2022-06-02 04:08] LABS: PCO2 Venous 39.7 mmHg (38-42); pH Blood Venous 7.44 (7.34-7.37)
[2022-06-02 04:09] LABS: Base Excess Venous 3.4 mmol/L; Bicarbonate Venous 27.1 mmol/L (24.0-30.0)
--- NOTE | 2022-06-02 05:22 | NUR ---
SHIFT SUMMARY PT A&Ox4, CALLS AND COMMUNICATES NEEDS APPROPRIATELY. VSS, BP STABLE, SINUS 80's, DENIES CP/PRESSURE. SpO2> 92% 2L VIA NC, DENIES SOB. PT IND TO DANGLE AT BEDSIDE. PT USES URINAL IND AND APPROPRIATELY. NO OTHER EVENTS, WILL REPORT TO ONCOMING RN.
--- NOTE | 2022-06-02 10:57 | NUR ---
PHYSICIAN COMMUNICATION CONTACTED DR MALDONADO TO NOTIFY HIM THAT THE PATIENT HAS TO GO UP ABOUT 15 STEEP STAIRS IN ORDER TO GET INTO HIS HOME AND THAT HE IS CONCERNED ABOUT BEING ABLE TO MANAGE THE STAIRS WITH HIS CURRENT SHORTNESS OF BREATH. DR MALDONADO ORDERED A HOME O2 EVALUATION.
[2022-06-02] MEDS ORDERED: IPRAT-ALBUT 0.5-3 ML INH (12:29)
--- NOTE | 2022-06-02 13:43 | NUR ---
DISCHARGE NOTE PATIENT ALERT AND ORIENTED X4. SATING ABOVE 90% ON ROOM AIR. EAGER TO GO HOME AND SEE HIS CAT. DISCHARGE INSTRUCTIONS REVIEWED WITH PATIENT. IV AND TELEMETRY REMOVED. PATIENT ESCORTED WITH FRIEND TO WAITING TAXI.
== END 2022-06-02 13:00 | disposition home or self-care (01) ==
LOC: ER 08:39 → ERHOLD 08:40 → PCU 15:09
PROVIDERS: Emergency Medicine; Nurse Practitioner Acute Care; ADMIT Internal Medicine
DX: J44.1 Chronic obstructive pulmonary disease with (acute) exacerbation (principal); J96.21 Acute and chronic respiratory failure with hypoxia; J96.22 Acute and chronic respiratory failure with hypercapnia; F41.9 Anxiety disorder, unspecified; E03.9 Hypothyroidism, unspecified; I47.1 Supraventricular tachycardia; Z66 Do not resuscitate; R73.9 Hyperglycemia, unspecified; F17.210 Nicotine dependence, cigarettes, uncomplicated; I11.0 Hypertensive heart disease with heart failure; F32.A Depression, unspecified; Z20.822 Contact with and (suspected) exposure to COVID-19
CPT/HCPCS: 0241U; 36415; 71045; 80053; 82803; 83036; 85025; 93005; 93010; 94640; 94644; 94660; 94664; 94761; 94762; 96365; 96366; 96372; 96375; 96376; 99285-25; A9270; G0378; J0456; J1650; J2930; J7030; J7050

== ENCOUNTER 2024-05-27 16:24 | Emergency (ER) | payer SELFPAY ==
[~2024-05-27] VITALS: Ht 180.3 cm; Wt 104.3 kg
[~2024-05-27 16:24] MED LIST changes: +CEPH500 PO; +IPRAT-ALBUT 0.5-3 ML INH
[2024-05-27 19:50] LABS: Mean Corpuscular HGB 33.3 pg (26.0-34.0)
[2024-05-27 19:58] LABS: BASOPHILS ABSOLUTE AUTO 0.05 K/mm3 (0.00-0.23); BASOPHILS PERCENT AUTO 1 % (0-2); EOSINOPHILS ABSOLUTE AUTO 0.04 K/mm3 (0.00-0.68); EOSINOPHILS PERCENT AUTO 0 % (0-6); Hematocrit 42.4 % (37.0-53.0); IMMATURE GRAN ABSOLUTE AUTO 0.04 K/mm3 (0.00-0.10); IMMATURE GRAN PERCENT AUTO 0 % (0-1); LYMPHOCYTES ABSOLUTE AUTO 0.64 K/mm3 (0.84-5.20); LYMPHOCYTES PERCENT AUTO 7 % (21-46); MONOCYTES ABSOLUTE AUTO 0.16 K/mm3 (0.16-1.47); MONOCYTES PERCENT AUTO 2 % (4-13); Mean Corpuscular Volume 101 fL (80-100); NEUTROPHILS ABSOLUTE AUTO 8.14 K/mm3 (1.96-9.15); NEUTROPHILS PERCENT AUTO 90 % (41-73); RDW Coefficient Variation 13.9 % (11.7-14.2); RDW Standard Deviation 51.5 fL (35.1-46.3); Red Blood Cell Count 4.21 M/mm3 (4.30-5.90); White Blood Cell Count 9.07 K/mm3 (4.00-11.30)
[2024-05-27 20:09] LABS: Mean Platelet Volume 11.7 fL (9.1-12.4); Platelet Count 168 K/mm3 (150-400)
[2024-05-27] MEDS ORDERED: Ipratropium/Albuterol SulF 2.5-0.5MG/3 ML Amp INH ONE (20:25)
[2024-05-27 20:31] LABS: Albumin, Blood 3.2 g/dL (3.4-5.0); Albumin/Globulin Ratio 0.7 (0.8-1.8); Bilirubin, Total 0.6 mg/dL (0.1-1.0); Bun/Creatinine Ratio 34.8 (12.0-20.0); Calcium, Blood 8.3 mg/dL (8.5-10.1); Creatinine, Blood 0.55 mg/dL (0.60-1.20); Globulin, Blood 4.4 g/dL (2.2-4.0); Potassium, Blood 4.5 mmol/L (3.5-5.5); Total Protein, Blood 7.6 g/dL (6.4-8.2)
[2024-05-27] MEDS ORDERED: MethylPREDNISolone Sod Succ 125 MG Vial IV ONE (20:45)
[2024-05-27 21:30] VITALS: BP 171/110
[2024-05-27] MEDS ORDERED: PRED20 PO (21:43)
== END 2024-05-27 22:44 | disposition home or self-care (01) ==
LOC: ER 16:24
PROVIDERS: Student in an Organized Health Care Education/Training Program
DX: J44.1 Chronic obstructive pulmonary disease with (acute) exacerbation (principal); F41.9 Anxiety disorder, unspecified; I10 Essential (primary) hypertension; F17.210 Nicotine dependence, cigarettes, uncomplicated; Z79.52 Long term (current) use of systemic steroids; Z79.899 Other long term (current) drug therapy
CPT/HCPCS: 71046; 80053; 85025; 93005; 93010; 94640; 94664; 96374; 99285-25; J2919

== ENCOUNTER 2024-06-05 17:58 | Inpatient (IN) | payer OTHER, MEDICARE ==
[~2024-06-05] VITALS: Ht 180.3 cm; Wt 108.9 kg
[~2024-06-05 17:58] MED LIST changes: -ALBU3IS INH; -IPRAT-ALBUT 0.5-3 ML INH; +IPRAT-ALBUT 0.5-3 ML NEB
[2024-06-05 18:31] LABS: BASOPHILS ABSOLUTE AUTO 0.05 K/mm3 (0.00-0.23); BASOPHILS PERCENT AUTO 0 % (0-2); EOSINOPHILS ABSOLUTE AUTO 0.18 K/mm3 (0.00-0.68); EOSINOPHILS PERCENT AUTO 1 % (0-6); Hematocrit 45.3 % (37.0-53.0); Hemoglobin 14.5 g/dL (13.5-17.5); IMMATURE GRAN ABSOLUTE AUTO 0.08 K/mm3 (0.00-0.10); IMMATURE GRAN PERCENT AUTO 1 % (0-1); LYMPHOCYTES ABSOLUTE AUTO 1.79 K/mm3 (0.84-5.20); LYMPHOCYTES PERCENT AUTO 14 % (21-46); MONOCYTES ABSOLUTE AUTO 1.29 K/mm3 (0.16-1.47); MONOCYTES PERCENT AUTO 10 % (4-13); Mean Corpuscular HGB 33.3 pg (26.0-34.0); Mean Corpuscular Volume 104 fL (80-100); Mean Platelet Volume 11.5 fL (9.1-12.4); NEUTROPHILS ABSOLUTE AUTO 9.67 K/mm3 (1.96-9.15); NEUTROPHILS PERCENT AUTO 74 % (41-73); Platelet Count 206 K/mm3 (150-400); RDW Standard Deviation 54.4 fL (35.1-46.3); Red Blood Cell Count 4.35 M/mm3 (4.30-5.90); White Blood Cell Count 13.06 K/mm3 (4.00-11.30)
[2024-06-05 18:45] LABS: Albumin, Blood 3.1 g/dL (3.4-5.0); Albumin/Globulin Ratio 0.8 (0.8-1.8); Bilirubin, Total 0.7 mg/dL (0.1-1.0); Bun/Creatinine Ratio 26.2 (12.0-20.0); Calcium, Blood 8.5 mg/dL (8.5-10.1); Creatinine, Blood 0.69 mg/dL (0.60-1.20); Potassium, Blood 4.8 mmol/L (3.5-5.5); Total Protein, Blood 7.1 g/dL (6.4-8.2)
[2024-06-05 19:31] LABS: Base Excess Venous 14.6 mmol/L; Bicarbonate Venous 34.1 mmol/L (24.0-30.0); PCO2 Venous 77.1 mmHg (38-42); pH Blood Venous 7.33 (7.34-7.37)
[2024-06-05 19:46] LABS: CORONAVIRUS COVID-19 AG Negative (NEGATIVE); INFLUENZA A AG Negative (NEGATIVE); INFLUENZA B AG Negative (NEGATIVE)
[2024-06-05] MEDS ORDERED: Azithromycin 500 MG in NS 250 ML IV ONE (20:00)
[2024-06-05] MEDS ORDERED: CefTRIAXone Sodium 1,000 MG in NS 50 ML IV ONE (20:00)
[2024-06-05] MEDS ORDERED: Ipratropium/Albuterol SulF 2.5-0.5MG/3 ML Amp INH SCH (21:10)
[2024-06-05] MEDS ORDERED: Benzonatate 100 MG Cap PO PRN (21:10)
[2024-06-05] MEDS ORDERED: Guaifenesin/Dextromethorphan Syrup 5 ML UDC PO PRN (21:10)
[2024-06-05] MEDS ORDERED: POTA10T PO (21:11)
[2024-06-05] MEDS ORDERED: POTA8 PO (21:11)
[2024-06-05] MEDS ORDERED: ASMANEX HFA13 G6 INH (21:11)
[2024-06-05] MEDS ORDERED: FURO20 PO (21:11)
[2024-06-05] MEDS ORDERED: BUSP10 PO (21:12)
[2024-06-05] MEDS ORDERED: BUDESONIDE0.5 MG/2 M INH (21:12)
[2024-06-05] MEDS ORDERED: FOLIC ACID0.4 MG PO (21:12)
[2024-06-05] MEDS ORDERED: [UNRECOGNIZED DRUG - OTHER] TOP (21:12)
[2024-06-05] MEDS ORDERED: DILT120 PO (21:13)
[2024-06-05] MEDS ORDERED: Ondansetron HCl 2 MG / ML 2ML Vial IV PRN (21:15)
[2024-06-05] MEDS ORDERED: NS 1,000 ML IV SCH (21:15)
[2024-06-05] MEDS ORDERED: Albuterol 2.5 MG/3 ML VIAL INH PRN (21:15)
[2024-06-05] MEDS ORDERED: dilTIAZem HCL 30 MG TAB PO PRN (21:40)
[2024-06-05 22:05] VITALS: BP 149/99
[2024-06-05 23:35] LABS: Base Excess Venous 10.3 mmol/L; PCO2 Venous 55.9 mmHg (38-42); pH Blood Venous 7.41 (7.34-7.37)
[2024-06-06] MEDS ORDERED: Levothyroxine Sodium 0.15 MG Tab PO SCH (06:00)
[2024-06-06 06:10] LABS: BASOPHILS ABSOLUTE AUTO 0.01 K/mm3 (0.00-0.23); BASOPHILS PERCENT AUTO 0 % (0-2); EOSINOPHILS PERCENT AUTO 0 % (0-6); Hematocrit 43.5 % (37.0-53.0); IMMATURE GRAN ABSOLUTE AUTO 0.06 K/mm3 (0.00-0.10); IMMATURE GRAN PERCENT AUTO 1 % (0-1); LYMPHOCYTES ABSOLUTE AUTO 0.57 K/mm3 (0.84-5.20); LYMPHOCYTES PERCENT AUTO 6 % (21-46); MONOCYTES PERCENT AUTO 2 % (4-13); Mean Corpuscular HGB 32.8 pg (26.0-34.0); Mean Corpuscular HGB Conc 32.2 g/dL (31.5-36.5); Mean Corpuscular Volume 102 fL (80-100); Mean Platelet Volume 11.1 fL (9.1-12.4); NEUTROPHILS ABSOLUTE AUTO 8.02 K/mm3 (1.96-9.15); NEUTROPHILS PERCENT AUTO 91 % (41-73); Platelet Count 201 K/mm3 (150-400); RDW Coefficient Variation 13.9 % (11.7-14.2); RDW Standard Deviation 52.8 fL (35.1-46.3); Red Blood Cell Count 4.27 M/mm3 (4.30-5.90); White Blood Cell Count 8.86 K/mm3 (4.00-11.30)
[2024-06-06 07:07] LABS: Magnesium, Blood 2.1 mg/dL (1.6-2.4)
[2024-06-06 07:12] LABS: Albumin/Globulin Ratio 0.8 (0.8-1.8); Bilirubin, Total 0.7 mg/dL (0.1-1.0); Bun/Creatinine Ratio 30.7 (12.0-20.0); Calcium, Blood 8.5 mg/dL (8.5-10.1); Creatinine, Blood 0.62 mg/dL (0.60-1.20); Globulin, Blood 3.8 g/dL (2.2-4.0); Potassium, Blood 4.7 mmol/L (3.5-5.5); Total Protein, Blood 6.8 g/dL (6.4-8.2)
[2024-06-06 07:17] VITALS: BP 149/95
[2024-06-06] MEDS ORDERED: Enoxaparin 40 MG/0.4 ML SYR SC SCH (09:00)
[2024-06-06] MEDS ORDERED: GuaiFENesin 600 MG TabCR PO SCH (09:00)
[2024-06-06] MEDS ORDERED: PredniSONE 20 MG Tab PO SCH (09:00)
[2024-06-06] MEDS ORDERED: Lactobacil 2-S.Thermo-Bifido 1 1 Cap PO SCH (09:00)
--- NOTE | 2024-06-06 09:14 | NUR ---
pt sitting up in chair, a/ox4, Dr. Montalvo in room speaking with him, pleasant and cooperative with care, follows commands well, states he's better than yesterday but still very weak, lungs are dim in ru field, has insp/exp wheezing t/o, and is course t/o, has productive cough of green sputum, is currently on 3 liters 02 via n/c, hrirr, trace edema around ankles, ppp faint, cap refill<3 sec vs stable, afebrile, piv x2 to r and l ac's, sites are clear and patent, btx4, abd flat soft nontender, voids via urinal without diff, skin c/w/d, elijah, yvonne, call light in reach.
[2024-06-06 13:57] LABS: Adenovirus Not Detected (NOT DETECT); Bordetella pertussis Not Detected (NOT DETECT); Chlamydophila pneumoniae Not Detected (NOT DETECT); Coronavirus 229E Not Detected (NOT DETECT); Coronavirus HKU1 Not Detected (NOT DETECT); Coronavirus NL63 Not Detected (NOT DETECT); Coronavirus OC43 Not Detected (NOT DETECT); Human Metapneumovirus Not Detected (NOT DETECT); Human Rhinovirus/Enterovirus Not Detected (NOT DETECT); Influenza A/2009-H1 Not Detected (NOT DETECT); Influenza A/H1 Not Detected (NOT DETECT); Influenza A/H3 Not Detected (NOT DETECT); Influenza B Not Detected (NOT DETECT); Mycoplasma pneumoniae Not Detected (NOT DETECT); Parainfluenza Virus 1 Not Detected (NOT DETECT); Parainfluenza Virus 2 Not Detected (NOT DETECT); Parainfluenza Virus 3 Not Detected (NOT DETECT); Parainfluenza Virus 4 Not Detected (NOT DETECT); Respiratory Syncytial Virus Not Detected (NOT DETECT); SARS-Cov-2 (COVID-19), BioFire Not Detected (NOT DETECT)
[2024-06-06 15:32] VITALS: BP 124/75
[2024-06-06 19:02] LABS: Base Excess Venous 12.6 mmol/L; Bicarbonate Venous 34.5 mmol/L (24.0-30.0); PCO2 Venous 50.9 mmHg (38-42); pH Blood Venous 7.46 (7.34-7.37)
[2024-06-06] MEDS ORDERED: ALBU90OI INH (19:43)
[2024-06-06] MEDS ORDERED: FURO20 PO (19:50)
[2024-06-06] MEDS ORDERED: STIOLTO RESPIMAT4 G2 INH (19:51)
[2024-06-06 20:04] VITALS: BP 136/79
[2024-06-06] MEDS ORDERED: CefTRIAXone Sodium 1,000 MG in NS 100 ML IV SCH (21:00)
[2024-06-06] MEDS ORDERED: BusPIRone HCl 10 MG Tab PO SCH (21:00)
[2024-06-06] MEDS ORDERED: Azithromycin 500 MG in NS 250 ML IV SCH (21:00)
[2024-06-07 02:45] VITALS: BP 112/78
--- NOTE | 2024-06-07 04:39 | NUR ---
SHIFT SUMMARY SLEPT IN RECLINER OVERNIGHT, REPORTS FEELING BETTER THAN YESTERDAY. LUNG SOUNDS REMAINS COARSE AND WHEEZY THROUGHOUT, 02 ON AT 3L/M VIA NC, SATS HAVE NEEN MID 90S AND HR 90S TO LOW 100S MOST OF NOC-SOMEWHAT HIGHER W/ACTIVITY BUT LOWER THAN PREVIOUS NOC, ON TELEMETRY - A FIB, SOB W/EXERTION BUT NO ACUTE DISTRESS , CALL LIGHT IN REACH AND USES APPROPRIATELY.
[2024-06-07 05:04] LABS: Base Excess Venous 13.1 mmol/L; Bicarbonate Venous 34.4 mmol/L (24.0-30.0); PCO2 Venous 58.7 mmHg (38-42); pH Blood Venous 7.42 (7.34-7.37)
[2024-06-07 05:13] LABS: BASOPHILS ABSOLUTE AUTO 0.02 K/mm3 (0.00-0.23); BASOPHILS PERCENT AUTO 0 % (0-2); EOSINOPHILS ABSOLUTE AUTO 0.03 K/mm3 (0.00-0.68); EOSINOPHILS PERCENT AUTO 0 % (0-6); Hematocrit 40.8 % (37.0-53.0); Hemoglobin 13.2 g/dL (13.5-17.5); IMMATURE GRAN ABSOLUTE AUTO 0.08 K/mm3 (0.00-0.10); IMMATURE GRAN PERCENT AUTO 1 % (0-1); LYMPHOCYTES ABSOLUTE AUTO 1.83 K/mm3 (0.84-5.20); LYMPHOCYTES PERCENT AUTO 11 % (21-46); MONOCYTES ABSOLUTE AUTO 1.45 K/mm3 (0.16-1.47); MONOCYTES PERCENT AUTO 9 % (4-13); Mean Corpuscular HGB 33.1 pg (26.0-34.0); Mean Corpuscular HGB Conc 32.4 g/dL (31.5-36.5); Mean Corpuscular Volume 102 fL (80-100); Mean Platelet Volume 11.3 fL (9.1-12.4); NEUTROPHILS ABSOLUTE AUTO 13.48 K/mm3 (1.96-9.15); NEUTROPHILS PERCENT AUTO 80 % (41-73); Platelet Count 196 K/mm3 (150-400); RDW Coefficient Variation 13.9 % (11.7-14.2); RDW Standard Deviation 52.8 fL (35.1-46.3); Red Blood Cell Count 3.99 M/mm3 (4.30-5.90); White Blood Cell Count 16.89 K/mm3 (4.00-11.30)
[2024-06-07 05:43] LABS: Bun/Creatinine Ratio 31.9 (12.0-20.0); Calcium, Blood 8.6 mg/dL (8.5-10.1); Creatinine, Blood 0.75 mg/dL (0.60-1.20); Potassium, Blood 4.6 mmol/L (3.5-5.5)
[2024-06-07 07:11] VITALS: BP 147/90
[2024-06-07] MEDS ORDERED: Furosemide 20 MG Tab PO SCH (09:00)
[2024-06-07 15:14] VITALS: BP 129/94
--- NOTE | 2024-06-07 18:16 | NUR ---
NO ACUTE CHANGES, OOB IN CHAIR THROUGH THE DAY, ALERT AND ORIENTED X3, CALL LIGHT WITH IN REACH
[2024-06-07 19:53] VITALS: BP 123/82
[2024-06-07] MEDS ORDERED: CefTRIAXone 1000 MG Vial ONE (21:18)
[2024-06-08 05:19] VITALS: BP 109/92
[2024-06-08 06:02] LABS: Base Excess Venous 12.9 mmol/L; Bicarbonate Venous 34.7 mmol/L (24.0-30.0); PCO2 Venous 50.3 mmHg (38-42); pH Blood Venous 7.47 (7.34-7.37)
[2024-06-08 06:29] LABS: Bun/Creatinine Ratio 34.8 (12.0-20.0); Calcium, Blood 8.7 mg/dL (8.5-10.1); Creatinine, Blood 0.78 mg/dL (0.60-1.20); Potassium, Blood 4.6 mmol/L (3.5-5.5)
[2024-06-08 06:35] LABS: BASOPHILS ABSOLUTE AUTO 0.03 K/mm3 (0.00-0.23); BASOPHILS PERCENT AUTO 0 % (0-2); EOSINOPHILS ABSOLUTE AUTO 0.07 K/mm3 (0.00-0.68); EOSINOPHILS PERCENT AUTO 1 % (0-6); Hematocrit 43.3 % (37.0-53.0); IMMATURE GRAN ABSOLUTE AUTO 0.12 K/mm3 (0.00-0.10); IMMATURE GRAN PERCENT AUTO 1 % (0-1); LYMPHOCYTES ABSOLUTE AUTO 2.53 K/mm3 (0.84-5.20); LYMPHOCYTES PERCENT AUTO 17 % (21-46); MONOCYTES ABSOLUTE AUTO 1.29 K/mm3 (0.16-1.47); MONOCYTES PERCENT AUTO 9 % (4-13); Mean Corpuscular HGB 33.5 pg (26.0-34.0); Mean Corpuscular HGB Conc 32.3 g/dL (31.5-36.5); Mean Corpuscular Volume 104 fL (80-100); Mean Platelet Volume 11.6 fL (9.1-12.4); NEUTROPHILS ABSOLUTE AUTO 11.05 K/mm3 (1.96-9.15); NEUTROPHILS PERCENT AUTO 73 % (41-73); Platelet Count 194 K/mm3 (150-400); RDW Coefficient Variation 13.9 % (11.7-14.2); RDW Standard Deviation 53.7 fL (35.1-46.3); Red Blood Cell Count 4.18 M/mm3 (4.30-5.90); White Blood Cell Count 15.09 K/mm3 (4.00-11.30)
[2024-06-08 07:46] VITALS: BP 130/93
[2024-06-08 15:39] VITALS: BP 125/86
--- NOTE | 2024-06-08 17:25 | NUR ---
NO CHANGES, ALERT AND ORIENTED X4, [place], SHOWERED TODAY, FRIENDS VISITED TODAY, CLEARLY MAKES NEEDS KNOWN, CALL LIGHT WITH IN REACH
[2024-06-08 21:08] VITALS: BP 125/88
--- NOTE | 2024-06-09 03:56 | NUR ---
BRICK TOSSER SUMMARY VSS. ALERT AND ORIENTED. COOPERATIVE WITH CARE. LUNG SOUNDS DIMINISHED WITH SLIGHT WHEEZE WITH AUSCULTATION, IV ANTIBIOTICS ADMIN PER MD ORDERS - SEE MAR FOR DETAILS. UP WITH ASSIST. SPENT MOST OF SHIFT IN RECLINER, HE VOICED WAS MORE COMFORTABLE THAN THE BED. HAS BEEN RESTING QUIETLY WITH OCCASIONAL RESP TREATMENT PER RT. CALL LIGHT IN REACH. O2 PER NC AT 3L/MIN. MED TELE AND CONT PULSE OX. WILL CONT TO MONITOR
[2024-06-09 04:42] VITALS: BP 120/86
[2024-06-09 06:20] LABS: BASOPHILS ABSOLUTE AUTO 0.03 K/mm3 (0.00-0.23); BASOPHILS PERCENT AUTO 0 % (0-2); EOSINOPHILS ABSOLUTE AUTO 0.06 K/mm3 (0.00-0.68); EOSINOPHILS PERCENT AUTO 0 % (0-6); Hematocrit 43.2 % (37.0-53.0); Hemoglobin 13.9 g/dL (13.5-17.5); IMMATURE GRAN ABSOLUTE AUTO 0.09 K/mm3 (0.00-0.10); IMMATURE GRAN PERCENT AUTO 1 % (0-1); LYMPHOCYTES ABSOLUTE AUTO 2.81 K/mm3 (0.84-5.20); LYMPHOCYTES PERCENT AUTO 19 % (21-46); MONOCYTES ABSOLUTE AUTO 1.32 K/mm3 (0.16-1.47); MONOCYTES PERCENT AUTO 9 % (4-13); Mean Corpuscular HGB Conc 32.2 g/dL (31.5-36.5); Mean Corpuscular Volume 103 fL (80-100); Mean Platelet Volume 11.3 fL (9.1-12.4); NEUTROPHILS PERCENT AUTO 71 % (41-73); Platelet Count 206 K/mm3 (150-400); RDW Standard Deviation 52.9 fL (35.1-46.3); Red Blood Cell Count 4.21 M/mm3 (4.30-5.90); White Blood Cell Count 14.71 K/mm3 (4.00-11.30)
[2024-06-09 06:44] LABS: Bun/Creatinine Ratio 31.3 (12.0-20.0); Calcium, Blood 8.4 mg/dL (8.5-10.1); Creatinine, Blood 0.8 mg/dL (0.60-1.20); Potassium, Blood 4.4 mmol/L (3.5-5.5)
[2024-06-09 08:13] VITALS: BP 160/105
[2024-06-09] MEDS ORDERED: Saline Nasal Spray 45 ML PRN (12:50)
--- NOTE | 2024-06-09 12:51 | NUR ---
THIS NURSE RECIEVED CALL FROM [employer] TROY Velarde, JUST PRIOR TO THIS NOTE THAT PT HEART RATE WAS IN 150'S- 160'S. THIS NURSE IN ROOM IMMEDIATELY TO CHECK ON PATIENT WHO WAS COUGHING AFTER EATING A BITE OF CHICKEN. 02 TURNED UP PER PATIENT REQUEST. PT SATS WERE 89-92 WHILE COUHGING. ROLF HINES, RT IN ROOM AT THAT TIME WELL. DR VALDEZ NOTIFIED OF HR AT 1248. SALINE SPRAY ALSO ORDERED PT STATED HIS NOSTRILS WERE TOO DRY. CALL LIGHT WITHIN REACH.
[2024-06-09 15:12] VITALS: BP 149/96
--- NOTE | 2024-06-09 17:01 | NUR ---
SHIFT SUMMARY PT AXO, PLEASANT AND COOPERATIVE WITH CARE THOUGH VERY BLACKFEET. VSS. PT HAD AN EPISODE OF RVR PER CLEANER AND TRIMMER, SEE PRIOR NOTE. UP WITH 1 ASSIST. PT SLEEPS IN RECLINER. NO ACUTE CHANGES THIS SHIFT. PT ON 2L VIA NC. PT STATES THAT HE IS USING THE INCENTIVE SPIROMETER AND THE FLUTTER VALVE.
[2024-06-09 20:04] VITALS: BP 119/92
[2024-06-10 02:46] VITALS: BP 124/81
--- NOTE | 2024-06-10 03:45 | NUR ---
MEDICAL DIRECTOR/HEAD TEAM PHYSICIAN SUMMARY AT SHIFT COMMENCE VOICED NAUSEA AND VERTIGO. ZOFRAN IV ADMIN, AND BIOX CONNECTION CHANGED. VOICED FEELING BETTER. VSS. AFFECT CHEERFUL. NO C/O CHEST DISCOMFORT, VOICED FEELING BETTER IN RECLINER AFTER PADDING REARANGED UNDER HIM. MED TELE - SOME A FLUTTER. ANTIBIOTICS ADMIN AND TOLERATING MEDS WELL. SEE MAR FOR DETAILS. LUNG SOUNDS DIMINISHED PER AUSCULTATION, BUT LESS DIMINISHED THAN NOTED 24 HR AGO. HAS BEEN RESTING QUIETLY WITH FEW INTERRUPTIONS SINCE HS MEDS ADMIN IN RECLINER WITH FEET ELEVATED (TO DECREASE EDEMA IN BLE). CALL LIGHT AND URINAL IN REACH. UP AD MAAME WITH STANDBY ASSIST IF NEEDED. NO C/O AND ASYMPTOMATIC AT THIS TIME. WILL CONTINUE TO MONITOR.
[2024-06-10 08:06] VITALS: BP 107/75
[2024-06-10] MEDS ORDERED: ROBITUSSIN100 MG/5 M PO (12:05)
[2024-06-10] MEDS ORDERED: PRED20 PO (12:05)
[2024-06-10] MEDS ORDERED: VISBIOME 112.51 EACH PO (12:06)
[2024-06-10] MEDS ORDERED: DOXY100 PO (12:06)
== END 2024-06-10 12:41 | disposition home health service (06) | DRG 871 ==
LOC: ER 17:58 → MEDS 21:06 → ERHOLD 21:06 → MEDS 21:59 → ENPENDDIS 06-10 11:37 → MEDS 06-10 12:41
PROVIDERS: Family Medicine; Nurse Practitioner Acute Care; Student in an Organized Health Care Education/Training Program; ADMIT Internal Medicine
PROC: 3E03329 Introduction of Other Anti-infective into Peripheral Vein, Percutaneous Approach (ICD-10-PCS; principal; 2024-06-05)
PROC: 5A09357 Assistance with Respiratory Ventilation, Less than 24 Consecutive Hours, Continuous Positive Airway Pressure (ICD-10-PCS; 2024-06-05)
DX: A41.9 Sepsis, unspecified organism (principal); J18.9 Pneumonia, unspecified organism; J96.21 Acute and chronic respiratory failure with hypoxia; J96.22 Acute and chronic respiratory failure with hypercapnia; J44.1 Chronic obstructive pulmonary disease with (acute) exacerbation; J98.11 Atelectasis; J44.0 Chronic obstructive pulmonary disease with (acute) lower respiratory infection; E03.9 Hypothyroidism, unspecified; F17.210 Nicotine dependence, cigarettes, uncomplicated; I48.0 Paroxysmal atrial fibrillation; F32.A Depression, unspecified; F41.9 Anxiety disorder, unspecified; M19.90 Unspecified osteoarthritis, unspecified site; R65.20 Severe sepsis without septic shock; I10 Essential (primary) hypertension; N28.1 Cyst of kidney, acquired; K76.0 Fatty (change of) liver, not elsewhere classified; K42.9 Umbilical hernia without obstruction or gangrene; J34.89 Other specified disorders of nose and nasal sinuses; F43.10 Post-traumatic stress disorder, unspecified; R59.0 Localized enlarged lymph nodes; F40.240 Claustrophobia; Z79.51 Long term (current) use of inhaled steroids; Z79.890 Hormone replacement therapy; Z99.81 Dependence on supplemental oxygen; Z79.899 Other long term (current) drug therapy; Z79.52 Long term (current) use of systemic steroids; Z98.890 Other specified postprocedural states
CPT/HCPCS: 0202U; 36415; 71046; 71260; 80048; 80053; 82803; 83605; 83735; 83880; 84145; 84443; 84484; 85025; 85379; 87040; 87428-QW; 93005; 93010; 94640; 94660; 94664; 94760; 94762; 97110; 97112; 97161; 99285-25; A9270; J0456; J0696; J1650; J2405; J7050; J7512; Q9967

== ENCOUNTER 2024-06-23 17:59 | Emergency (ER) | payer OTHER, MEDICARE ==
[~2024-06-23] VITALS: Ht 180.3 cm; Wt 108.9 kg
[~2024-06-23 17:59] MED LIST changes: +ALBU90OI INH; +ASMANEX HFA13 G6 INH; +BUDESONIDE0.5 MG/2 M INH; +DILT120 PO; +DOXY100 PO; +FOLIC ACID0.4 MG PO; +FURO20 PO; +POTA10T PO; +POTA8 PO; +ROBITUSSIN100 MG/5 M PO; +STIOLTO RESPIMAT4 G2 INH; +VISBIOME 112.51 EACH PO; +[UNRECOGNIZED DRUG - OTHER] TOP
[2024-06-23] MEDS ORDERED: Ipratropium/Albuterol SulF 2.5-0.5MG/3 ML Amp INH ONE (18:20)
[2024-06-23 18:36] LABS: BASOPHILS ABSOLUTE AUTO 0.03 K/mm3 (0.00-0.23); BASOPHILS PERCENT AUTO 0 % (0-2); EOSINOPHILS ABSOLUTE AUTO 0.14 K/mm3 (0.00-0.68); EOSINOPHILS PERCENT AUTO 1 % (0-6); Hematocrit 45.5 % (37.0-53.0); Hemoglobin 14.3 g/dL (13.5-17.5); IMMATURE GRAN ABSOLUTE AUTO 0.08 K/mm3 (0.00-0.10); IMMATURE GRAN PERCENT AUTO 1 % (0-1); LYMPHOCYTES ABSOLUTE AUTO 1.76 K/mm3 (0.84-5.20); LYMPHOCYTES PERCENT AUTO 12 % (21-46); MONOCYTES ABSOLUTE AUTO 1.11 K/mm3 (0.16-1.47); MONOCYTES PERCENT AUTO 8 % (4-13); Mean Corpuscular HGB 32.9 pg (26.0-34.0); Mean Corpuscular HGB Conc 31.4 g/dL (31.5-36.5); Mean Corpuscular Volume 105 fL (80-100); Mean Platelet Volume 11.4 fL (9.1-12.4); NEUTROPHILS ABSOLUTE AUTO 11.26 K/mm3 (1.96-9.15); NEUTROPHILS PERCENT AUTO 78 % (41-73); Platelet Count 139 K/mm3 (150-400); RDW Coefficient Variation 14.2 % (11.7-14.2); RDW Standard Deviation 55.4 fL (35.1-46.3); Red Blood Cell Count 4.35 M/mm3 (4.30-5.90); White Blood Cell Count 14.38 K/mm3 (4.00-11.30)
[2024-06-23 18:52] LABS: Albumin, Blood 3.1 g/dL (3.4-5.0); Albumin/Globulin Ratio 0.8 (0.8-1.8); Bilirubin, Total 0.5 mg/dL (0.1-1.0); Bun/Creatinine Ratio 32.7 (12.0-20.0); Calcium, Blood 8.1 mg/dL (8.5-10.1); Creatinine, Blood 0.74 mg/dL (0.60-1.20); Globulin, Blood 3.9 g/dL (2.2-4.0); Magnesium, Blood 1.9 mg/dL (1.6-2.4); Potassium, Blood 4.3 mmol/L (3.5-5.5)
[2024-06-23 18:53] LABS: International Normalized Ratio 1.12; Prothrombin Time Results 11.9 Sec (9.7-11.5)
[2024-06-23 19:44] LABS: Influenza A, PCR NEGATIVE (NEGATIVE); Influenza B, PCR NEGATIVE (NEGATIVE); Resp Syncytial Virus, PCR NEGATIVE (NEGATIVE); SARS-Cov-2 (COVID-19) PCR, MMC NEGATIVE (NEGATIVE)
[2024-06-23] MEDS ORDERED: MethylPREDNISolone Sod Succ 125 MG Vial IV ONE (19:55)
[2024-06-23] MEDS ORDERED: Apixaban 5 MG Tab PO ONE (20:35)
[2024-06-23] MEDS ORDERED: AZIT250 PO (20:39)
[2024-06-23] MEDS ORDERED: ELIQUIS5 M2 PO (20:39)
[2024-06-23] MEDS ORDERED: PRED20 PO (20:39)
[2024-06-23 20:40] VITALS: BP 147/100
== END 2024-06-23 20:53 | disposition home or self-care (01) ==
LOC: ER 17:59
PROVIDERS: Student in an Organized Health Care Education/Training Program
DX: J44.1 Chronic obstructive pulmonary disease with (acute) exacerbation (principal); J18.9 Pneumonia, unspecified organism; Z86.79 Personal history of other diseases of the circulatory system; M19.90 Unspecified osteoarthritis, unspecified site; E03.9 Hypothyroidism, unspecified; I10 Essential (primary) hypertension; F17.210 Nicotine dependence, cigarettes, uncomplicated; Z79.52 Long term (current) use of systemic steroids; Z79.899 Other long term (current) drug therapy; Z79.51 Long term (current) use of inhaled steroids
CPT/HCPCS: 0241U; 71045; 80053; 83735; 83880; 84484; 85025; 85610; 85730; 93005; 93010; 94640; 94664; 96374; 99285-25; A9270; J2919

== ENCOUNTER 2024-07-04 16:15 | Inpatient (IN) | payer OTHER, MEDICARE ==
[~2024-07-04] VITALS: Ht 180.3 cm; Wt 102.8 kg
[~2024-07-04 16:15] MED LIST changes: +ALBU2.5V5 INH; -ALBU90OI INH; +ELIQUIS5 M2 PO
[2024-07-04] MEDS ORDERED: Albuterol 2.5 MG/3 ML VIAL INH SCH (17:40)
[2024-07-04] MEDS ORDERED: Ipratropium Bromide INH 0.02% 0.5 mg/2.5ML Vial INH ONE ×2 (17:40→18:05)
[2024-07-04 17:45] LABS: BASOPHILS ABSOLUTE AUTO 0.03 K/mm3 (0.00-0.23); BASOPHILS PERCENT AUTO 0 % (0-2); EOSINOPHILS PERCENT AUTO 1 % (0-6); IMMATURE GRAN ABSOLUTE AUTO 0.07 K/mm3 (0.00-0.10); IMMATURE GRAN PERCENT AUTO 1 % (0-1); LYMPHOCYTES ABSOLUTE AUTO 1.29 K/mm3 (0.84-5.20); LYMPHOCYTES PERCENT AUTO 11 % (21-46); MONOCYTES ABSOLUTE AUTO 1.06 K/mm3 (0.16-1.47); MONOCYTES PERCENT AUTO 9 % (4-13); Mean Corpuscular HGB 33.3 pg (26.0-34.0); Mean Corpuscular HGB Conc 31.1 g/dL (31.5-36.5); Mean Corpuscular Volume 107 fL (80-100); Mean Platelet Volume 11.1 fL (9.1-12.4); NEUTROPHILS PERCENT AUTO 78 % (41-73); Platelet Count 146 K/mm3 (150-400); RDW Coefficient Variation 14.6 % (11.7-14.2); RDW Standard Deviation 57.5 fL (35.1-46.3); Red Blood Cell Count 4.21 M/mm3 (4.30-5.90); White Blood Cell Count 11.55 K/mm3 (4.00-11.30)
[2024-07-04] MEDS ORDERED: MethylPREDNISolone Sod Succ 40 MG VIAL IV ONE (18:05)
[2024-07-04 18:12] LABS: Albumin, Blood 3.2 g/dL (3.4-5.0); Albumin/Globulin Ratio 0.9 (0.8-1.8); Bilirubin, Total 0.8 mg/dL (0.1-1.0); Bun/Creatinine Ratio 35.7 (12.0-20.0); Calcium, Blood 8.4 mg/dL (8.5-10.1); Creatinine, Blood 0.65 mg/dL (0.60-1.20); Globulin, Blood 3.4 g/dL (2.2-4.0); Potassium, Blood 4.3 mmol/L (3.5-5.5); Thyroid Stimulating Hormone 1.46 uIU/mL (0.360-4.800); Total Protein, Blood 6.6 g/dL (6.4-8.2)
[2024-07-04] MEDS ORDERED: LevoFLOXacin 750 MG/D5W 150ML 150 ML IV ONE (18:35)
[2024-07-04] MEDS ORDERED: NS 1,000 ML IV SCH (18:40)
[2024-07-04 19:04] LABS: Influenza A, PCR NEGATIVE (NEGATIVE); Influenza B, PCR NEGATIVE (NEGATIVE); Resp Syncytial Virus, PCR NEGATIVE (NEGATIVE); SARS-Cov-2 (COVID-19) PCR, MMC NEGATIVE (NEGATIVE)
[2024-07-04 19:16] LABS: Base Excess Venous 10.3 mmol/L; Bicarbonate Venous 31.5 mmol/L (24.0-30.0); PCO2 Venous 64.1 mmHg (38-42); pH Blood Venous 7.36 (7.34-7.37)
[2024-07-04] MEDS ORDERED: Magnesium Sulf 2 GM/Water 50ML 50 ML IV ONE (19:50)
[2024-07-04] MEDS ORDERED: Ipratropium/Albuterol SulF 2.5-0.5MG/3 ML Amp INH SCH (21:15)
[2024-07-04] MEDS ORDERED: Albuterol 2.5 MG/3 ML VIAL INH PRN (21:20)
[2024-07-04] MEDS ORDERED: Mometasone Furoate Inhaler 220 mcg 14 ACT INH SCH (21:20)
[2024-07-04] MEDS ORDERED: Ondansetron HCl 2 MG / ML 2ML Vial IV PRN (21:20)
[2024-07-04] MEDS ORDERED: Furosemide 10 MG/ML 4ML Vial IV SCH (22:00)
[2024-07-04 22:18] LABS: Bicarbonate Venous 30.7 mmol/L (24.0-30.0); PCO2 Venous 66.1 mmHg (38-42); pH Blood Venous 7.34 (7.34-7.37)
[2024-07-04 22:19] LABS: Base Excess Venous 9.4 mmol/L
[2024-07-05] VITALS (9 sets, daily range): BP systolic 107–148; BP diastolic 64–104
--- NOTE | 2024-07-05 03:31 | NUR ---
ARRIVAL NOTE RECIEVED REPORT FROM JEFFREY MEDIAN RN. PT BROUGHT TO PCU VIA GURNEY. PT STOOD AND PIVOTED TO PCU BED. A&O X4, PT CALM, COOPERATIVE TO CARE. HR IN THE 130'S, DENIES CP/PRESSURE, NUMB/TINGLING, SBP STABLE. O2 >92% ON 3L VIA NC, PT ON 2L AT BASELINE, PER PT THE LAST FEW DAYS HE HAS BEEN REQUIRING 3L DUE TO INCREASED SOB. PT SOB WITH TALKING AND MOVEMENT, RECOVERS WITH DEEP BREATHING AND REDIRECTION. HE HAS +2 EDEMA TO THE BLE'S. REDNESS OF THE LOWER EXTREMTIES TO MID THIGHS, SCALING ALSO NOTED TO LOWER EXTREMETIES. PT HAS A BLISTER ON THE RIGHT ANKLE, HE STATES THIS OCCURS OFTEN. PT ON A DILT GTT AT 5, PTS HR STILL IN THE 130'S, DILT GTT TITRATED TO 10. PT REPORTS SLEEPING IN RECLINER AT HOME. PT RESTING IN RECLINER AT THIS TIME. WILL MONITOR PT.
[2024-07-05 04:01] LABS: BASOPHILS ABSOLUTE AUTO 0.01 K/mm3 (0.00-0.23); BASOPHILS PERCENT AUTO 0 % (0-2); EOSINOPHILS PERCENT AUTO 0 % (0-6); Hematocrit 40.9 % (37.0-53.0); IMMATURE GRAN ABSOLUTE AUTO 0.07 K/mm3 (0.00-0.10); IMMATURE GRAN PERCENT AUTO 1 % (0-1); LYMPHOCYTES ABSOLUTE AUTO 0.36 K/mm3 (0.84-5.20); LYMPHOCYTES PERCENT AUTO 4 % (21-46); MONOCYTES ABSOLUTE AUTO 0.14 K/mm3 (0.16-1.47); MONOCYTES PERCENT AUTO 2 % (4-13); Mean Corpuscular HGB 33.4 pg (26.0-34.0); Mean Corpuscular HGB Conc 31.8 g/dL (31.5-36.5); Mean Corpuscular Volume 105 fL (80-100); Mean Platelet Volume 11.4 fL (9.1-12.4); NEUTROPHILS ABSOLUTE AUTO 8.44 K/mm3 (1.96-9.15); NEUTROPHILS PERCENT AUTO 94 % (41-73); Platelet Count 144 K/mm3 (150-400); RDW Coefficient Variation 14.5 % (11.7-14.2); RDW Standard Deviation 56.5 fL (35.1-46.3); Red Blood Cell Count 3.89 M/mm3 (4.30-5.90); White Blood Cell Count 9.02 K/mm3 (4.00-11.30)
[2024-07-05 04:25] LABS: Albumin, Blood 2.8 g/dL (3.4-5.0); Albumin/Globulin Ratio 0.9 (0.8-1.8); Bilirubin, Total 0.6 mg/dL (0.1-1.0); Bun/Creatinine Ratio 36.6 (12.0-20.0); Calcium, Blood 8.1 mg/dL (8.5-10.1); Creatinine, Blood 0.63 mg/dL (0.60-1.20); Globulin, Blood 3.2 g/dL (2.2-4.0); Magnesium, Blood 2.3 mg/dL (1.6-2.4); Potassium, Blood 4.5 mmol/L (3.5-5.5)
--- NOTE | 2024-07-05 05:17 | NUR ---
SHIFT SUMMARY PT A&O X4, CALM, COOPERATIVE TO CARE. HR IN THE 100'S, AFIB, DENIES CP/PRESSURE, NUMB/TINGLING, SBP STABLE. O2 >92% ON 3L VIA NC, PT ON 2L AT BASELINE BUT REPORTS USING 3L THE LAST FEW DAYS. PT BECOMES SOB WITH TALKING AND EXERTION. DILT GTT WAS INFUSING AT 10 BUT PTS HR IN THE 80'S, TITRATED DOWN TO 5. NO ACUTE CHANGES T/O SHIFT. PT RESTING IN RECLINER. WILL MONITOR PT AND REPORT TO DAY SHIFT RN.
[2024-07-05] MEDS ORDERED: Levothyroxine Sodium 0.15 MG Tab PO SCH (06:00)
[2024-07-05] MEDS ORDERED: Furosemide 10 MG/ML 4ML Vial IV ONE (08:05)
[2024-07-05] MEDS ORDERED: dilTIAZem HCL 120 MG CAP.CD PO SCH (09:00)
[2024-07-05] MEDS ORDERED: BusPIRone HCl 10 MG Tab PO SCH (09:00)
[2024-07-05] MEDS ORDERED: Apixaban 5 MG Tab PO SCH (09:00)
[2024-07-05] MEDS ORDERED: Ipratropium/Albuterol SulF 2.5-0.5MG/3 ML Amp INH SCH (09:40)
[2024-07-05] MEDS ORDERED: Nicotine 7 MG PATCH TOP SCH (10:30)
[2024-07-05] MEDS ORDERED: dilTIAZem HCL 120 MG CAP.CD PO ONE (13:00)
[2024-07-05] MEDS ORDERED: Empagliflozin 10 MG TAB PO SCH ×2 (15:00→16:00)
[2024-07-05] MEDS ORDERED: Losartan Potassium 25 MG Tab PO SCH ×2 (15:00→16:00)
[2024-07-05] MEDS ORDERED: Eucerin Unscented Lotion 240 ml TOP PRN (15:20)
[2024-07-05] MEDS ORDERED: Budesonide 0.5 MG/2 ML RESP INH SCH (15:20)
[2024-07-05] MEDS ORDERED: OLODATEROL INH SCH (15:20)
[2024-07-05] MEDS ORDERED: TIOTROPIUM INH SCH (15:20)
[2024-07-05 15:50] LABS: Base Excess Venous 15.1 mmol/L; Bicarbonate Venous 36.2 mmol/L (24.0-30.0); PCO2 Venous 55.7 mmHg (38-42); pH Blood Venous 7.45 (7.34-7.37)
[2024-07-05] MEDS ORDERED: Amiodarone HCl 200 MG Tab PO SCH ×2 (17:00→21:00)
[2024-07-05] MEDS ORDERED: Metoprolol Succinate 25 MG TABCR PO SCH (17:00)
[2024-07-05] MEDS ORDERED: Furosemide 10 MG/ML 4ML Vial IV SCH (17:00)
--- NOTE | 2024-07-05 18:34 | NUR ---
SHIFT SUMMARY: NEURO: NO ACUTE CHANGES DURING THIS SHIFT. REMAINS A&OX4. CARDIAC: PT STARTED ON PO DILT AND TITRATED OFF OF DILT DRIP, THEN CHANGED TO PO AMIO THIS EVENING. PT RECIEVED AN ECHO TODAY. REMAINED FREE OF ANY CP. RESP: PT TAKEN OFF OF OXYGEN THIS AM AND HAS BEEN ON RA ALL DAY. SOB OFF AND ON. PT VERY SOB WITH ANY EXERTION. PT VERY ANXIOUS THIS AM WHICH INCREASED WORK OF BREATHING. GI/: PLACED ON A PUREWICK DUE TO TACHYCARDIA AND SOB WITH ANY AMOUNT OF ACTIVITY. PTS LASIX WAS INCREASED TODAY AND HAD A GOOD AMOUNT OF URINARY OUTPUT. NO OTHER SIGNIFICANT EVENTS HAPPENED DURING THIS SHIFT. WILL CONTINUE TO CARE FOR PT TILL END OF SHIFT.
[2024-07-05] MEDS ORDERED: Lactobacil 2-S.Thermo-Bifido 1 1 Cap PO SCH (21:00)
[2024-07-06 03:21] VITALS: BP 103/71
[2024-07-06 03:34] LABS: Base Excess Venous 15.6 mmol/L; PCO2 Venous 52.6 mmHg (38-42); pH Blood Venous 7.48 (7.34-7.37)
[2024-07-06 04:55] LABS: BASOPHILS ABSOLUTE AUTO 0.01 K/mm3 (0.00-0.23); BASOPHILS PERCENT AUTO 0 % (0-2); EOSINOPHILS ABSOLUTE AUTO 0.02 K/mm3 (0.00-0.68); EOSINOPHILS PERCENT AUTO 0 % (0-6); Hematocrit 42.1 % (37.0-53.0); Hemoglobin 13.3 g/dL (13.5-17.5); IMMATURE GRAN ABSOLUTE AUTO 0.08 K/mm3 (0.00-0.10); IMMATURE GRAN PERCENT AUTO 1 % (0-1); LYMPHOCYTES PERCENT AUTO 9 % (21-46); MONOCYTES ABSOLUTE AUTO 1.47 K/mm3 (0.16-1.47); MONOCYTES PERCENT AUTO 9 % (4-13); Mean Corpuscular HGB Conc 31.6 g/dL (31.5-36.5); Mean Corpuscular Volume 105 fL (80-100); NEUTROPHILS ABSOLUTE AUTO 13.23 K/mm3 (1.96-9.15); NEUTROPHILS PERCENT AUTO 81 % (41-73); Platelet Count 156 K/mm3 (150-400); RDW Coefficient Variation 14.6 % (11.7-14.2); Red Blood Cell Count 4.03 M/mm3 (4.30-5.90); White Blood Cell Count 16.31 K/mm3 (4.00-11.30)
[2024-07-06 05:27] LABS: Albumin/Globulin Ratio 0.9 (0.8-1.8); Bilirubin, Total 0.4 mg/dL (0.1-1.0); Calcium, Blood 8.6 mg/dL (8.5-10.1); Creatinine, Blood 0.84 mg/dL (0.60-1.20); Globulin, Blood 3.4 g/dL (2.2-4.0); Potassium, Blood 4.6 mmol/L (3.5-5.5); Total Protein, Blood 6.4 g/dL (6.4-8.2)
--- NOTE | 2024-07-06 05:57 | NUR ---
SHIFT SUMMARY PT A&O X4, OBEYS COMMANDS, REPOSTINING SELF IN RECLINER, MOVING ALL EXTREMITIES EQUALLY, ABLE TO STAND SBA, HOLDING APPROPRIATE CONVERSATION. CONTINUOUS SPO2, SPO2 GREATER THAN 90% ON RA WHILE AWAKE/2L O2 VIA NC WHILE SLEEPING, BASELINE PT IS ON 2-3L O2 VIA NC, OCCATIONALLY DESATTING IN TO THE HIGH 80 S% BUT QUICKLY RECOVERS WITH BREATHING TECHNIQUES, PT OCCASIONALLY COUGHING SOME THIN CLEAR SPUTUM, SOB WITH ACTIVITY. CONTINUOUS TELE MONITORING, BP STABLE WITH MAP GREATER THAN 65, CAP REFILL LESS THAN 3S, STRONG RADIAL PULSES, FAINT PEDAL PULSES, AFIB 100-110 S, PT DENIES CHEST P/P AT THIS TIME, BLE EDEMA PRESENT/PT STATES IMPROVED SINCE YESTERDAY. BOWEL TONES PRESENT IN ALL 4Q, ABD SOFT AND NON-TENDER, ABD HERNIA PRESENT. PT HAS PUREWICK IN PLACE CONNECTED TO LOW CONTINUOUS SUCTION, URINE PALE YELLOW IN COLOR. PT HAS SOME REDNESS TO BLE THAT PT STATES HX OF CELULITIS. BED LOWEST POSITION, CALL LIGHT IN REACH, AWAITING TO GIVE REPORT TO ONCOMING RN.
[2024-07-06 07:23] VITALS: BP 112/70
[2024-07-06] MEDS ORDERED: Metoprolol Succinate 25 MG TABCR PO SCH (12:00)
[2024-07-06 12:04] VITALS: BP 118/62
[2024-07-06 15:22] VITALS: BP 119/75
--- NOTE | 2024-07-06 18:31 | NUR ---
SHIFT SUMMERY: NO ACUTE CHANGES OR SIGNIFICANT EVENTS HAPPENED DURING THIS SHIFT. PT REMAINS ON RA WITH OCCASIONAL O2 WHILE SLEEPING. HAD A LARGE AMOUNT OF URINARY OUTPUT TODAY. WILL CONTINUE TO CARE FOR PT TILL END OF SHIFT.
[2024-07-06 19:56] VITALS: BP 114/75
[2024-07-06 23:31] VITALS: BP 136/75
[2024-07-07 03:23] VITALS: BP 116/81
[2024-07-07 03:59] LABS: Base Excess Venous 19.8 mmol/L; Bicarbonate Venous 39.6 mmol/L (24.0-30.0); PCO2 Venous 61.5 mmHg (38-42); pH Blood Venous 7.46 (7.34-7.37)
[2024-07-07 04:07] LABS: BASOPHILS ABSOLUTE AUTO 0.03 K/mm3 (0.00-0.23); BASOPHILS PERCENT AUTO 0 % (0-2); EOSINOPHILS ABSOLUTE AUTO 0.08 K/mm3 (0.00-0.68); EOSINOPHILS PERCENT AUTO 1 % (0-6); Hematocrit 44.6 % (37.0-53.0); Hemoglobin 14.3 g/dL (13.5-17.5); IMMATURE GRAN ABSOLUTE AUTO 0.09 K/mm3 (0.00-0.10); IMMATURE GRAN PERCENT AUTO 1 % (0-1); LYMPHOCYTES ABSOLUTE AUTO 1.53 K/mm3 (0.84-5.20); LYMPHOCYTES PERCENT AUTO 10 % (21-46); MONOCYTES ABSOLUTE AUTO 1.59 K/mm3 (0.16-1.47); MONOCYTES PERCENT AUTO 10 % (4-13); Mean Corpuscular HGB 32.9 pg (26.0-34.0); Mean Corpuscular HGB Conc 32.1 g/dL (31.5-36.5); Mean Corpuscular Volume 103 fL (80-100); Mean Platelet Volume 11.7 fL (9.1-12.4); NEUTROPHILS ABSOLUTE AUTO 12.38 K/mm3 (1.96-9.15); NEUTROPHILS PERCENT AUTO 79 % (41-73); Platelet Count 168 K/mm3 (150-400); RDW Coefficient Variation 14.7 % (11.7-14.2); RDW Standard Deviation 55.8 fL (35.1-46.3); Red Blood Cell Count 4.34 M/mm3 (4.30-5.90)
[2024-07-07 04:27] LABS: Bun/Creatinine Ratio 32.1 (12.0-20.0); Calcium, Blood 9.1 mg/dL (8.5-10.1); Creatinine, Blood 1.06 mg/dL (0.60-1.20); Potassium, Blood 4.3 mmol/L (3.5-5.5)
--- NOTE | 2024-07-07 05:23 | NUR ---
SHIFT SUMMARY PT A&O X4, OBEYS COMMANDS, REPOSTINING SELF IN RECLINER, MOVING ALL EXTREMITIES EQUALLY, HOLDING APPROPRIATE CONVERSATION. CONTINUOUS SPO2, SPO2,GREATER THAN 90% THE MAJORITY OF THE SHIFT ON RA WHILE AWAKE/1L O2 VIA NC WHILE SLEEPING/ NEEDED, BASELINE PT IS ON 2-3L O2 VIA NC, PT OCCASIONALLY COUGHING SOME THIN CLEAR SPUTUM, SOB WITH ACTIVITY BUT PT REPORTS IMPROVEMENT. CONTINUOUS TELE MONITORING, BP STABLE WITH MAP GREATER THAN 65, CAP REFILL LESS THAN 3S, STRONG PULSES T/O, AFIB 90-100 S WHILE AT REST/WITH ACTIVITY 120 S, PT DENIES CHEST P/P AT THIS TIME, BLE EDEMA THAT HAS IMPROVED SINCE YESTERDAY. BOWEL TONES PRESENT IN ALL 4Q, ABD SOFT AND NON-TENDER, ABD HERNIA PRESENT. PT HAS PUREWICK IN PLACE CONNECTED TO LOW CONTINUOUS SUCTION, URINE PALE YELLOW IN COLOR, PT REPORTING FELLINGS OF BLADDER FULLNESS/PT BLADDER SCANNED PRE AND POST VOID/GAVE PT SOME TIME TO VOID AND ROUGHLY 30 MINS LATER WAS ABLE TO HAVE A LARGE VOID. PT HAS SOME REDNESS TO BLE THAT PT STATES HX OF CELULITIS AND IS TENDER TO TOUCH. BED LOWEST POSITION, CALL LIGHT IN REACH, AWAITING TO GIVE REPORT TO ONCOMING RN.
[2024-07-07] MEDS ORDERED: Furosemide 10 MG/ML 4ML Vial IV SCH (09:00)
[2024-07-07 09:12] VITALS: BP 117/79
[2024-07-07] MEDS ORDERED: buPROPion HCL 150 MG TAB.SR.12H PO SCH (10:00)
[2024-07-07] MEDS ORDERED: CefTRIAXone Sodium 1,000 MG in NS 100 ML IV SCH (13:00)
[2024-07-07] MEDS ORDERED: Spironolactone 25 MG Tab PO SCH (14:00)
[2024-07-07] MEDS ORDERED: Metoprolol Succinate 25 MG TABCR PO ONE (14:00)
--- NOTE | 2024-07-07 18:07 | NUR ---
PATIENT IS A&OX4 APPROPRIATE AND KIND, WORKED WITH PT, HAD A GOOD APPETITE, HAD GOOD UOP, NO MAJOR CHANGES TODAY
[2024-07-07 19:44] VITALS: BP 121/79
[2024-07-07 23:31] VITALS: BP 102/78
[2024-07-08] VITALS (7 sets, daily range): BP systolic 83–121; BP diastolic 63–93
[2024-07-08 04:50] LABS: BASOPHILS ABSOLUTE AUTO 0.03 K/mm3 (0.00-0.23); BASOPHILS PERCENT AUTO 0 % (0-2); EOSINOPHILS ABSOLUTE AUTO 0.12 K/mm3 (0.00-0.68); EOSINOPHILS PERCENT AUTO 1 % (0-6); Hematocrit 42.8 % (37.0-53.0); Hemoglobin 13.7 g/dL (13.5-17.5); IMMATURE GRAN PERCENT AUTO 1 % (0-1); LYMPHOCYTES ABSOLUTE AUTO 1.58 K/mm3 (0.84-5.20); LYMPHOCYTES PERCENT AUTO 13 % (21-46); MONOCYTES ABSOLUTE AUTO 1.22 K/mm3 (0.16-1.47); MONOCYTES PERCENT AUTO 10 % (4-13); Mean Corpuscular HGB 32.8 pg (26.0-34.0); Mean Corpuscular Volume 102 fL (80-100); Mean Platelet Volume 11.6 fL (9.1-12.4); NEUTROPHILS ABSOLUTE AUTO 9.49 K/mm3 (1.96-9.15); NEUTROPHILS PERCENT AUTO 76 % (41-73); Platelet Count 142 K/mm3 (150-400); RDW Coefficient Variation 14.6 % (11.7-14.2); RDW Standard Deviation 54.8 fL (35.1-46.3); Red Blood Cell Count 4.18 M/mm3 (4.30-5.90); White Blood Cell Count 12.54 K/mm3 (4.00-11.30)
[2024-07-08 05:15] LABS: Bun/Creatinine Ratio 37.1 (12.0-20.0); Potassium, Blood 4.7 mmol/L (3.5-5.5)
--- NOTE | 2024-07-08 05:46 | NUR ---
SHIFT SUMMARY PT RESTING COMFORTABLY THROUGHOUT NIGHT IN RECLINER WITH LEGS ELEVATED. PT REMAINS A&OX4. VSS ON RA. PT DOES REQUIRE 1-2L WITH ACTIVITY AND PRN TO REMAIN >92%. PT REMAINS ON TELE IN AFIB WITH RATE CONTROLLED. PTs BLE CONTINUE TO WEEP AND BE SORE PER REPORT OF PT. PT REFUSED ANY PAIN MEDICINE AT THIS TIME. PT ATTACHED TO MALE PUREWICK THROUGHOUT NIGHT WITH ADEQUATE OUTPUT. NO FURTHER QUESTIONS OR CONCERNS AT THIS TIME. CALL TORRES WITHIN REACH. WILL REPORT TO ONCOMING NURSE.
--- NOTE | 2024-07-08 08:00 | NUR ---
Brown of care: Up in chair, awake, pleasant, oriented, follows commands. In controlled Afib on the monitor. On room air. External male catheter in place with PIV x1. Bilat LE red/swollen with thready pedal pulses but sensation intact. Will continue to monitor.
[2024-07-08] MEDS ORDERED: Metoprolol Succinate 25 MG TABCR PO SCH (09:00)
--- NOTE | 2024-07-08 16:30 | NUR ---
Notified MD that pt is complaining of some dyspnea. His oxygen saturation is maintaining at 90-95% on room air. Very diminished lung sounds with some wheezes throughout. Getting scheduled breathing tx. Normal RR. Orders for VBG -- will follow.
[2024-07-08 17:22] LABS: Base Excess Venous 14.9 mmol/L; Bicarbonate Venous 37.4 mmol/L (24.0-30.0); PCO2 Venous 41.4 mmHg (38-42)
[2024-07-08 17:23] LABS: pH Blood Venous 7.56 (7.34-7.37)
--- NOTE | 2024-07-08 17:54 | NUR ---
Shift summary: Neuro intact, OOB to chair all day. In controlled AFib with stable blood pressures. On room air all day with oxygen saturations 90-95%. Diminished breath sounds with wheeze. Has complained of intermittent dyspnea -- MD notified -- orders for VBG & results communicated to MD with no further orders. BM x1, voiding in male external catheter with over 2L of urine output. Good appetite. Bilat LE reddened & swollen but has palp pedal pulses. PIV x1 in place. Will continue to monitor.
[2024-07-09] MEDS ORDERED: Melatonin 3 MG Tab PO PRN (02:45)
[2024-07-09 03:20] VITALS: BP 94/80
[2024-07-09 03:28] LABS: Base Excess Venous 13.3 mmol/L; PCO2 Venous 39.9 mmHg (38-42); pH Blood Venous 7.56 (7.34-7.37)
[2024-07-09 04:15] LABS: BASOPHILS ABSOLUTE AUTO 0.05 K/mm3 (0.00-0.23); BASOPHILS PERCENT AUTO 0 % (0-2); EOSINOPHILS ABSOLUTE AUTO 0.14 K/mm3 (0.00-0.68); EOSINOPHILS PERCENT AUTO 1 % (0-6); Hematocrit 42.6 % (37.0-53.0); IMMATURE GRAN ABSOLUTE AUTO 0.13 K/mm3 (0.00-0.10); IMMATURE GRAN PERCENT AUTO 1 % (0-1); LYMPHOCYTES PERCENT AUTO 10 % (21-46); MONOCYTES ABSOLUTE AUTO 1.23 K/mm3 (0.16-1.47); MONOCYTES PERCENT AUTO 8 % (4-13); Mean Corpuscular HGB 33.3 pg (26.0-34.0); Mean Corpuscular HGB Conc 32.9 g/dL (31.5-36.5); Mean Corpuscular Volume 101 fL (80-100); Mean Platelet Volume 12.1 fL (9.1-12.4); NEUTROPHILS ABSOLUTE AUTO 11.68 K/mm3 (1.96-9.15); NEUTROPHILS PERCENT AUTO 79 % (41-73); Platelet Count 166 K/mm3 (150-400); RDW Coefficient Variation 14.2 % (11.7-14.2); RDW Standard Deviation 53.1 fL (35.1-46.3); White Blood Cell Count 14.73 K/mm3 (4.00-11.30)
[2024-07-09 04:45] LABS: Bun/Creatinine Ratio 38.7 (12.0-20.0); Calcium, Blood 8.8 mg/dL (8.5-10.1); Creatinine, Blood 1.06 mg/dL (0.60-1.20); Potassium, Blood 4.6 mmol/L (3.5-5.5)
--- NOTE | 2024-07-09 04:52 | NUR ---
SHIFT SUMMARY PT A&O X4, OBEYS COMMANDS, REPOSTINING SELF IN RECLINER, MOVING ALL EXTREMITIES EQUALLY, HOLDING APPROPRIATE CONVERSATION. CONTINUOUS SPO2, SPO2,GREATER THAN 90% THE MAJORITY OF THE SHIFT ON RA WHILE AWAKE/1L O2 VIA NC WHILE SLEEPING/ NEEDED, BASELINE PT IS ON 2-3L O2 VIA NC, PT OCCASIONALLY COUGHING SOME THIN CLEAR SPUTUM, SOB WITH ACTIVITY, PT REPORTING INTERMINENT DIFFICULTY BREATHING THAT IS CAUSING HIM TO WAKE UP/ PLACED ON 2 L O2 VIA NC AND PT REPORTING IMPROVEMENT. CONTINUOUS TELE MONITORING, BP STABLE WITH MAP GREATER THAN 65, CAP REFILL LESS THAN 3S, STRONG PULSES T/O, AFIB 90-100 S, PT DENIES CHEST P/P AT THIS TIME, BLE EDEMA. BOWEL TONES PRESENT IN ALL 4Q, ABD SOFT AND NON-TENDER, ABD HERNIA PRESENT, PT HAVING BM THIS SHIFT. PT HAS PUREWICK IN PLACE CONNECTED TO LOW CONTINUOUS SUCTION, URINE YELLOW IN COLOR. PT HAS SOME REDNESS TO BLE THAT PT STATES HX OF CELULITIS AND IS TENDER TO TOUCH. BED LOWEST POSITION, CALL LIGHT IN REACH, AWAITING TO GIVE REPORT TO ONCOMING RN.
[2024-07-09 07:14] VITALS: BP 111/78
--- NOTE | 2024-07-09 07:15 | NUR ---
ASSUMPTION NOTE: THIS RN TO ASSUME CARE OF PATIENT. PATIENT IS SITTING IN CHAIR AND WATCHING TV. VITAL SIGNS TAKEN AND PATIENT STABLE. PATIENT DENIED CHEST PAIN/PRESSURE OR FEELING SOB. PATIENT STATES LAST NIGHT HIS BLOOD PRESSURE WAS LOW AND HE STATES "HE CAN FEEL HIS BODY SHUTTING DOWN". THIS RN ASKED IF HE WOULD LIKE A CONVERSATION WITH PALLIATIVE CARE TODAY REGARDING OPTIONS MOVING FORWARD AND PATIENT STATED YES HE WOULD. PATIENT HAS CALL LIGHT WITHIN REACH.
[2024-07-09] MEDS ORDERED: Furosemide 40 MG Tab PO SCH (09:00)
[2024-07-09] MEDS ORDERED: Spironolactone 12.5 MG TAB PO SCH (09:00)
--- NOTE | 2024-07-09 09:04 | NUR ---
RESIDENT ROUNDING: RESIDENT BUTT ROUNDING ON PATIENT AND CHATTED WITH HIM. THIS RN NOTIFIED THAT A PALLIATIVE CARE CONSULT WAS PLACED DUE TO PATIENT'S CONVERSATION WITH EDITOR RN AND STATING "HE IS READY AND CAN FEEL HIS BODY SAYING ITS READY ALSO".
[2024-07-09 11:57] VITALS: BP 122/81
[2024-07-09 15:18] VITALS: BP 92/76
[2024-07-09] MEDS ORDERED: CeFAZolin Sodium 1,000 MG in NS 50 ML IV SCH (16:00)
--- NOTE | 2024-07-09 17:29 | NUR ---
SHIFT SUMMARY: PATIENT IS ALERT AND ORIENTED X4 AND ACTIVE IN HIS CARE, IS ABLE TO MAKE NEEDS KNOWN AND USES CALL LIGHT APPORIRATELY. PATIENT SATTING >92% ON ANYWHERE FROM ROOM AIR TO 2 LITERS AT A TIME, OCCASIONALLY DESATS WITH EXERTION AND WILL BE PLACED ON THE N ZEB CANNULA. ON TELE SHOWING AFIB WITH RATE 90-110. PATIENT WORKED WITH PHYSICAL THERAPY TODAY AND RECOMENDING REHAB AND PATIENT IS AGREEABLE. PATIENT CONTINUES TO USE A PUREWICK FOR SOB WITH EXERTION AND EXHIBITS ANXIETY WHEN THINKING ABOUT GOING HOME AND NOT FEELING LIKE HE IS AT FULL STRENGTH. THIS RN EDUCATED HIM THROUGHOUT SHIFT THAT REHAB WILL WORK WITH HIM TO GET BACK TO FULL STRENGTH. PALLIATIVE WAS CONSULTED AT THE BEGINNING OF THE SHIFT PATIENT WAS MAKING COMMENTS OF BEING READY, SEE PREVIOUS NOTES FOR MORE INFORMATION. PATIENT REQUESTED SOME MELATONIN TO HELP SLEEP TONIGHT, WILL PASS THAT OFF TO DIGITAL PRODUCT SPECIALIST RN. PLAN WILL BE TO DISCHARGE WITHIN THE NEXT DAY OR SO TO A REHAB FACILITY. WILL CONTINUE TO MONITOR PATIENT UNTIL DIGITAL PRODUCT SPECIALIST RN ASSUMES CARE.
[2024-07-09 20:39] VITALS: BP 91/72
[2024-07-10 03:38] LABS: Base Excess Venous 12.7 mmol/L; Bicarbonate Venous 33.5 mmol/L (24.0-30.0); PCO2 Venous 51.3 mmHg (38-42); pH Blood Venous 7.46 (7.34-7.37)
[2024-07-10 03:41] VITALS: BP 93/76
[2024-07-10 03:51] LABS: BASOPHILS ABSOLUTE AUTO 0.04 K/mm3 (0.00-0.23); BASOPHILS PERCENT AUTO 0 % (0-2); EOSINOPHILS ABSOLUTE AUTO 0.11 K/mm3 (0.00-0.68); EOSINOPHILS PERCENT AUTO 1 % (0-6); Hematocrit 43.7 % (37.0-53.0); Hemoglobin 14.1 g/dL (13.5-17.5); IMMATURE GRAN ABSOLUTE AUTO 0.15 K/mm3 (0.00-0.10); IMMATURE GRAN PERCENT AUTO 1 % (0-1); LYMPHOCYTES ABSOLUTE AUTO 1.53 K/mm3 (0.84-5.20); LYMPHOCYTES PERCENT AUTO 11 % (21-46); MONOCYTES PERCENT AUTO 8 % (4-13); Mean Corpuscular HGB 32.8 pg (26.0-34.0); Mean Corpuscular HGB Conc 32.3 g/dL (31.5-36.5); Mean Corpuscular Volume 102 fL (80-100); Mean Platelet Volume 11.4 fL (9.1-12.4); NEUTROPHILS ABSOLUTE AUTO 11.26 K/mm3 (1.96-9.15); NEUTROPHILS PERCENT AUTO 79 % (41-73); Platelet Count 179 K/mm3 (150-400); RDW Standard Deviation 53.1 fL (35.1-46.3); White Blood Cell Count 14.29 K/mm3 (4.00-11.30)
[2024-07-10 04:09] LABS: Bun/Creatinine Ratio 32.5 (12.0-20.0); Calcium, Blood 8.3 mg/dL (8.5-10.1); Creatinine, Blood 1.14 mg/dL (0.60-1.20); Potassium, Blood 4.7 mmol/L (3.5-5.5)
--- NOTE | 2024-07-10 05:46 | NUR ---
SHIFT SUMMARY PT A&O X4, OBEYS COMMANDS, REPOSTINING SELF IN RECLINER, MOVING ALL EXTREMITIES EQUALLY AND WITH PURPOSE, HOLDING APPROPRIATE CONVERSATION. CONTINUOUS SPO2, SPO2 GREATER THAN 90% THE MAJORITY OF THE SHIFT ON 1L O2 VIA NC, BASELINE PT IS ON 2-3L O2 VIA NC, PT OCCASIONALLY COUGHING SOME THIN CLEAR SPUTUM, SOB WITH ACTIVITY. CONTINUOUS TELE MONITORING, BP STABLE WITH MAP GREATER THAN 65, CAP REFILL LESS THAN 3S, STRONG PULSES T/O, AFIB 90-100 S, PT DENIES CHEST P/P AT THIS TIME, BLE EDEMA. BOWEL TONES PRESENT IN ALL 4Q, ABD SOFT AND NON-TENDER, ABD HERNIA PRESENT, PT HAVING BM THIS SHIFT. PT HAS PUREWICK IN PLACE CONNECTED TO LOW CONTINUOUS SUCTION, URINE ORANGE IN COLOR. PT HAS SOME REDNESS TO BLE THAT PT STATES HX OF CELULITIS AND IS TENDER TO TOUCH. BED LOWEST POSITION, CALL LIGHT IN REACH, AWAITING TO GIVE REPORT TO ONCOMING RN.
[2024-07-10 07:41] VITALS: BP 99/78
--- NOTE | 2024-07-10 09:48 | NUR ---
Pt is alert, oriented, hard of hearing, and pleasantly conversant. States that his goal is to go back home. States that he uses 2 l/min of O2 with concentrator at home, but does not smoke with the oxygen use. 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 STates he is quitting smoking as of this admission, and he decided that because he no longer gets any pleasure out of it and realizes it is very bad for him. He states that the nicotine patch has been very helpful in relieving his anxiety and cravings. Recalls that he had an outpatient sleep study years ago, but did not get a prescription for BIPAP/Cpap. The pt is a little unclear on the results of the study. Encouraged pt to follow up with his provider to see if he could benefit from and qualify for a BIPAP as an outpatient. Pt is wearing a purewick, which he says was helpful when he was getting IV lasix and peeing so often. It will be dc'd today as his furosemide is now PO, and we are encouraging more activity in anticipation of discharge to SNF and eventually home. Pt would also really like to be able to get up and walk into the bathroom and to also get a shower today.
[2024-07-10 11:20] VITALS: BP 93/73
[2024-07-10] MEDS ORDERED: Furosemide 10 MG / ML 2ML Vial IV SCH ×3 (13:00→18:00)
[2024-07-10 15:45] VITALS: BP 94/78
[2024-07-10 20:34] VITALS: BP 110/82
[2024-07-11 01:39] VITALS: BP 120/94
[2024-07-11 06:01] VITALS: BP 107/85
[2024-07-11 06:19] LABS: BASOPHILS ABSOLUTE AUTO 0.04 K/mm3 (0.00-0.23); BASOPHILS PERCENT AUTO 0 % (0-2); EOSINOPHILS ABSOLUTE AUTO 0.14 K/mm3 (0.00-0.68); EOSINOPHILS PERCENT AUTO 1 % (0-6); Hematocrit 42.6 % (37.0-53.0); Hemoglobin 14.2 g/dL (13.5-17.5); IMMATURE GRAN ABSOLUTE AUTO 0.18 K/mm3 (0.00-0.10); IMMATURE GRAN PERCENT AUTO 1 % (0-1); LYMPHOCYTES ABSOLUTE AUTO 1.15 K/mm3 (0.84-5.20); LYMPHOCYTES PERCENT AUTO 7 % (21-46); MONOCYTES PERCENT AUTO 11 % (4-13); Mean Corpuscular HGB 33.5 pg (26.0-34.0); Mean Corpuscular HGB Conc 33.3 g/dL (31.5-36.5); Mean Corpuscular Volume 101 fL (80-100); Mean Platelet Volume 11.6 fL (9.1-12.4); NEUTROPHILS ABSOLUTE AUTO 13.13 K/mm3 (1.96-9.15); NEUTROPHILS PERCENT AUTO 80 % (41-73); Platelet Count 189 K/mm3 (150-400); RDW Coefficient Variation 13.7 % (11.7-14.2); RDW Standard Deviation 50.7 fL (35.1-46.3); Red Blood Cell Count 4.24 M/mm3 (4.30-5.90); White Blood Cell Count 16.44 K/mm3 (4.00-11.30)
[2024-07-11 06:36] LABS: Albumin, Blood 2.9 g/dL (3.4-5.0); Albumin/Globulin Ratio 0.7 (0.8-1.8); Bilirubin, Total 0.7 mg/dL (0.1-1.0); Bun/Creatinine Ratio 33.7 (12.0-20.0); Calcium, Blood 8.4 mg/dL (8.5-10.1); Creatinine, Blood 1.04 mg/dL (0.60-1.20); Globulin, Blood 4.1 g/dL (2.2-4.0); Potassium, Blood 4.1 mmol/L (3.5-5.5)
[2024-07-11 07:34] VITALS: BP 116/78
[2024-07-11] MEDS ORDERED: NS 250 ML IV PRN (08:55)
[2024-07-11] MEDS ORDERED: Miconazole Nitrate 28 GM CREAM..G. TOP SCH (10:40)
--- NOTE | 2024-07-11 13:30 | NUR ---
PATIENT DC'D TO [facility]IA [facility]. REPORT CALLED TO NURSE. DC PACKET SENT WITH SCARF AND ANNEAL OPERATOR. BELONGINGS SENT WITH PATIENT. PATIENT DENIES ANY FURTHER QUESTIONS OR CONCERNS.
[2024-07-11] MEDS ORDERED: AMIODARONE HCL400 M2 PO (14:49)
[2024-07-11] MEDS ORDERED: BUPR150ER PO (14:50)
[2024-07-11] MEDS ORDERED: JARDIANCE10 MG PO (14:51)
[2024-07-11] MEDS ORDERED: METO25ER PO (14:51)
[2024-07-11] MEDS ORDERED: MELA3 PO (14:51)
[2024-07-11] MEDS ORDERED: MICO100S TOP (14:53)
[2024-07-11] MEDS ORDERED: Nicoderm Cq1 EACH TOP (14:53)
[2024-07-11] MEDS ORDERED: SPIR25 PO (14:55)
[2024-07-11] MEDS ORDERED: Amiodarone HCl200 MG PO (14:58)
[2024-07-11] MEDS ORDERED: AMIODARONE HCL200 M1 PO (14:59)
[2024-07-11] MEDS ORDERED: CEPH500 PO (15:00)
[2024-07-11] MEDS ORDERED: FURO40 PO (15:04)
== END 2024-07-11 16:17 | disposition home or self-care (01) | DRG 291 ==
LOC: ER 16:15 → ERHOLD 16:16 → PCU 16:16 → MEDS 07-05 15:53 → PCU 07-05 15:53 → MEDS 07-11 01:20 → ENPENDDIS 07-11 12:05 → MEDS 07-11 16:17
PROVIDERS: Internal Medicine; Nurse Practitioner Acute Care; Student in an Organized Health Care Education/Training Program; ADMIT Internal Medicine
DX: I11.0 Hypertensive heart disease with heart failure (principal); I50.23 Acute on chronic systolic (congestive) heart failure; J96.21 Acute and chronic respiratory failure with hypoxia; J96.22 Acute and chronic respiratory failure with hypercapnia; L03.115 Cellulitis of right lower limb; L03.116 Cellulitis of left lower limb; J44.1 Chronic obstructive pulmonary disease with (acute) exacerbation; I48.0 Paroxysmal atrial fibrillation; F40.240 Claustrophobia; M19.90 Unspecified osteoarthritis, unspecified site; E89.0 Postprocedural hypothyroidism; Z66 Do not resuscitate; Z99.81 Dependence on supplemental oxygen; F32.A Depression, unspecified; F41.9 Anxiety disorder, unspecified; K42.9 Umbilical hernia without obstruction or gangrene; F17.210 Nicotine dependence, cigarettes, uncomplicated; Z71.6 Tobacco abuse counseling; E66.01 Morbid (severe) obesity due to excess calories; Z79.899 Other long term (current) drug therapy; Z79.890 Hormone replacement therapy; Z93.0 Tracheostomy status; Z98.890 Other specified postprocedural states; Z68.33 Body mass index [BMI] 33.0-33.9, adult
CPT/HCPCS: 0241U; 36415; 71045; 80048; 80053; 82803; 82947; 83735; 83880; 84145; 84443; 84484; 85025; 93005; 93010; 94640; 94644; 94664; 94760; 94762; 96365; 96366; 96367; 96368; 97110; 97162; 97165; 97530; 97535; 99285-25; A9270; C8929; J0690; J0696; J1940; J1956; J2405; J3475; J7030; J7050; Q9957

== ENCOUNTER 2024-08-19 21:32 | Emergency (ER) | payer OTHER, MEDICARE ==
[~2024-08-19] VITALS: Ht 180.3 cm; Wt 99.8 kg
[~2024-08-19 21:32] MED LIST changes: +AMIODARONE HCL200 M1 PO; +AMIODARONE HCL400 M2 PO; +Amiodarone HCl200 MG PO; +BUPR150ER PO; +FURO40 PO; +JARDIANCE10 MG PO; +MELA3 PO; +METO25ER PO; +MICO100S TOP; +Nicoderm Cq1 EACH TOP; +SPIR25 PO
[2024-08-19 21:58] LABS: BASOPHILS ABSOLUTE AUTO 0.05 K/mm3 (0.00-0.23); BASOPHILS PERCENT AUTO 1 % (0-2); EOSINOPHILS ABSOLUTE AUTO 0.17 K/mm3 (0.00-0.68); EOSINOPHILS PERCENT AUTO 2 % (0-6); Hematocrit 41.2 % (37.0-53.0); Hemoglobin 13.3 g/dL (13.5-17.5); IMMATURE GRAN ABSOLUTE AUTO 0.07 K/mm3 (0.00-0.10); IMMATURE GRAN PERCENT AUTO 1 % (0-1); LYMPHOCYTES ABSOLUTE AUTO 1.86 K/mm3 (0.84-5.20); LYMPHOCYTES PERCENT AUTO 18 % (21-46); MONOCYTES ABSOLUTE AUTO 0.82 K/mm3 (0.16-1.47); MONOCYTES PERCENT AUTO 8 % (4-13); Mean Corpuscular HGB 33.4 pg (26.0-34.0); Mean Corpuscular HGB Conc 32.3 g/dL (31.5-36.5); Mean Corpuscular Volume 104 fL (80-100); Mean Platelet Volume 10.4 fL (9.1-12.4); NEUTROPHILS PERCENT AUTO 72 % (41-73); Platelet Count 244 K/mm3 (150-400); RDW Coefficient Variation 15.1 % (11.7-14.2); RDW Standard Deviation 58.2 fL (35.1-46.3); Red Blood Cell Count 3.98 M/mm3 (4.30-5.90); White Blood Cell Count 10.47 K/mm3 (4.00-11.30)
[2024-08-19 22:20] LABS: Albumin, Blood 2.9 g/dL (3.4-5.0); Albumin/Globulin Ratio 0.7 (0.8-1.8); Bilirubin, Total 0.6 mg/dL (0.1-1.0); Bun/Creatinine Ratio 24.7 (12.0-20.0); Calcium, Blood 8.2 mg/dL (8.5-10.1); Creatinine, Blood 0.89 mg/dL (0.60-1.20); Globulin, Blood 4.4 g/dL (2.2-4.0); Potassium, Blood 4.6 mmol/L (3.5-5.5); Total Protein, Blood 7.3 g/dL (6.4-8.2)
[2024-08-19 22:57] LABS: Influenza A, PCR NEGATIVE (NEGATIVE); Influenza B, PCR NEGATIVE (NEGATIVE); Resp Syncytial Virus, PCR NEGATIVE (NEGATIVE); SARS-Cov-2 (COVID-19) PCR, MMC NEGATIVE (NEGATIVE)
[2024-08-20] MEDS ORDERED: Metoprolol Succinate 25 MG TABCR PO ONE (02:00)
[2024-08-20] MEDS ORDERED: METO25ER PO (02:04)
[2024-08-20 08:51] VITALS: BP 145/65
[2024-08-27] MEDS ORDERED: AMOCLA875 PO (16:38)
== END 2024-08-20 08:51 | disposition home or self-care (01) ==
LOC: ER 21:32
PROVIDERS: Student in an Organized Health Care Education/Training Program
DX: I48.0 Paroxysmal atrial fibrillation (principal); J44.9 Chronic obstructive pulmonary disease, unspecified; I11.0 Hypertensive heart disease with heart failure; I50.20 Unspecified systolic (congestive) heart failure; E89.0 Postprocedural hypothyroidism; F17.210 Nicotine dependence, cigarettes, uncomplicated; Z99.81 Dependence on supplemental oxygen; Z79.890 Hormone replacement therapy; Z79.84 Long term (current) use of oral hypoglycemic drugs; Z79.01 Long term (current) use of anticoagulants; Z79.51 Long term (current) use of inhaled steroids; Z79.899 Other long term (current) drug therapy; Z59.89 Other problems related to housing and economic circumstances
CPT/HCPCS: 0241U; 71045; 80053; 83690; 83880; 84484; 85025; 93005; 93010; 99285-25; A9270

== ENCOUNTER 2024-09-29 18:53 | Inpatient (IN) | payer OTHER, MEDICARE ==
[~2024-09-29] VITALS: Ht 180.3 cm; Wt 98.4 kg
[~2024-09-29 18:53] MED LIST changes: +AMOCLA875 PO
[2024-09-29 19:35] LABS: BASOPHILS ABSOLUTE AUTO 0.03 K/mm3 (0.00-0.23); BASOPHILS PERCENT AUTO 0 % (0-2); EOSINOPHILS PERCENT AUTO 0 % (0-6); Hematocrit 44.1 % (37.0-53.0); Hemoglobin 13.8 g/dL (13.5-17.5); IMMATURE GRAN ABSOLUTE AUTO 0.09 K/mm3 (0.00-0.10); IMMATURE GRAN PERCENT AUTO 1 % (0-1); LYMPHOCYTES ABSOLUTE AUTO 0.87 K/mm3 (0.84-5.20); LYMPHOCYTES PERCENT AUTO 6 % (21-46); MONOCYTES ABSOLUTE AUTO 1.49 K/mm3 (0.16-1.47); MONOCYTES PERCENT AUTO 10 % (4-13); Mean Corpuscular HGB 32.9 pg (26.0-34.0); Mean Corpuscular HGB Conc 31.3 g/dL (31.5-36.5); Mean Corpuscular Volume 105 fL (80-100); Mean Platelet Volume 10.8 fL (9.1-12.4); NEUTROPHILS ABSOLUTE AUTO 12.67 K/mm3 (1.96-9.15); NEUTROPHILS PERCENT AUTO 84 % (41-73); Platelet Count 172 K/mm3 (150-400); RDW Coefficient Variation 14.6 % (11.7-14.2); RDW Standard Deviation 57.1 fL (35.1-46.3); White Blood Cell Count 15.15 K/mm3 (4.00-11.30)
[2024-09-29 19:55] LABS: Albumin, Blood 2.9 g/dL (3.4-5.0); Albumin/Globulin Ratio 0.7 (0.8-1.8); Bilirubin, Total 0.9 mg/dL (0.1-1.0); Bun/Creatinine Ratio 27.6 (12.0-20.0); Calcium, Blood 8.5 mg/dL (8.5-10.1); Creatinine, Blood 0.83 mg/dL (0.60-1.20); Globulin, Blood 4.3 g/dL (2.2-4.0); Potassium, Blood 4.5 mmol/L (3.5-5.5); Total Protein, Blood 7.2 g/dL (6.4-8.2)
[2024-09-29 20:25] LABS: Influenza A, PCR NEGATIVE (NEGATIVE); Influenza B, PCR NEGATIVE (NEGATIVE); Resp Syncytial Virus, PCR NEGATIVE (NEGATIVE); SARS-Cov-2 (COVID-19) PCR, MMC NEGATIVE (NEGATIVE)
[2024-09-29] MEDS ORDERED: Albuterol 2.5 MG/3 ML VIAL INH ONE (21:20)
[2024-09-29] MEDS ORDERED: MethylPREDNISolone Sod Succ 125 MG Vial IV ONE (21:20)
[2024-09-29] MEDS ORDERED: CefTRIAXone Sodium 1,000 MG in NS 50 ML IV ONE (21:20)
[2024-09-29] MEDS ORDERED: Acetaminophen 325 MG TABLET PO PRN (22:00)
[2024-09-29] MEDS ORDERED: Ipratropium/Albuterol SulF 2.5-0.5MG/3 ML Amp INH SCH (22:00)
[2024-09-29] MEDS ORDERED: Melatonin 3 MG Tab PO PRN (22:00)
[2024-09-29] MEDS ORDERED: Doxycycline Hyclate 100 MG in Dextrose 5% 250 ML IV SCH (22:13)
[2024-09-29 23:30] LABS: Base Excess Venous 11.3 mmol/L; Bicarbonate Venous 33.3 mmol/L (24.0-30.0); PCO2 Venous 50.7 mmHg (38-42); pH Blood Venous 7.45 (7.34-7.37)
[2024-09-30] MEDS ORDERED: Albuterol 2.5 MG/3 ML VIAL INH PRN (01:30)
[2024-09-30 01:48] VITALS: BP 114/81
[2024-09-30] MEDS ORDERED: BusPIRone HCl 5 MG Tab PO SCH (02:10)
[2024-09-30 04:23] VITALS: BP 106/85
[2024-09-30 04:57] LABS: Hematocrit 43.9 % (37.0-53.0); Hemoglobin 13.7 g/dL (13.5-17.5); Mean Corpuscular HGB 33.2 pg (26.0-34.0); Mean Corpuscular HGB Conc 31.2 g/dL (31.5-36.5); Mean Corpuscular Volume 106 fL (80-100); Mean Platelet Volume 10.9 fL (9.1-12.4); Platelet Count 166 K/mm3 (150-400); RDW Coefficient Variation 14.6 % (11.7-14.2); RDW Standard Deviation 57.9 fL (35.1-46.3); Red Blood Cell Count 4.13 M/mm3 (4.30-5.90); White Blood Cell Count 14.87 K/mm3 (4.00-11.30)
[2024-09-30 05:15] LABS: Albumin, Blood 2.8 g/dL (3.4-5.0); Albumin/Globulin Ratio 0.6 (0.8-1.8); Bilirubin, Total 0.6 mg/dL (0.1-1.0); Bun/Creatinine Ratio 27.3 (12.0-20.0); Calcium, Blood 8.2 mg/dL (8.5-10.1); Creatinine, Blood 0.84 mg/dL (0.60-1.20); Globulin, Blood 4.5 g/dL (2.2-4.0); Potassium, Blood 4.3 mmol/L (3.5-5.5); Total Protein, Blood 7.3 g/dL (6.4-8.2)
[2024-09-30 05:25] LABS: BAND PERCENT MAN 15 % (0-8); BASOPHILS PERCENT MAN 0 % (0-2); EOSINOPHILS PERCENT MAN 0 % (0-6); LYMPHOCYTES ABSOLUTE MAN 0.59 K/mm3 (0.84-5.20); LYMPHOCYTES PERCENT MAN 4 % (21-46); MONOCYTES ABSOLUTE MAN 0.59 K/mm3 (0.16-1.47); MONOCYTES PERCENT MAN 4 % (4-13); NEUTROPHILS ABSOLUTE MAN 13.68 K/mm3 (1.96-9.15); SEG NEUTROPHILS PERCENT MAN 77 % (41-73); TOTAL CELLS COUNTED 100
[2024-09-30] MEDS ORDERED: Levothyroxine Sodium 0.15 MG Tab PO SCH (06:00)
[2024-09-30 08:09] VITALS: BP 127/83
[2024-09-30] MEDS ORDERED: Lactobacil 2-S.Thermo-Bifido 1 1 Cap PO SCH (09:00)
[2024-09-30] MEDS ORDERED: Miconazole Nitrate 2% 85 GM PWD TOP SCH (09:00)
[2024-09-30] MEDS ORDERED: GuaiFENesin 600 MG TabCR PO SCH (09:00)
[2024-09-30] MEDS ORDERED: Furosemide 40 MG Tab PO SCH (09:00)
[2024-09-30] MEDS ORDERED: Metoprolol Succinate 25 MG TABCR PO SCH (09:00)
[2024-09-30] MEDS ORDERED: Amiodarone HCl 200 MG Tab PO SCH (09:00)
[2024-09-30] MEDS ORDERED: Spironolactone 25 MG Tab PO SCH (09:00)
[2024-09-30] MEDS ORDERED: Apixaban 5 MG Tab PO SCH (09:00)
[2024-09-30] MEDS ORDERED: Empagliflozin 10 MG TAB PO SCH (09:00)
[2024-09-30] MEDS ORDERED: MethylPREDNISolone Sod Succ 125 MG Vial IV SCH (09:00)
[2024-09-30] MEDS ORDERED: buPROPion HCL 150 MG TAB.SR.12H PO SCH (09:00)
[2024-09-30] MEDS ORDERED: Nicotine 21 MG PATCH TOP SCH (09:00)
[2024-09-30] MEDS ORDERED: BusPIRone HCl 5 MG Tab PO ONE (09:40)
[2024-09-30 12:09] VITALS: BP 108/74
[2024-09-30 15:04] VITALS: BP 128/86
[2024-09-30 20:12] VITALS: BP 116/87
[2024-09-30] MEDS ORDERED: CefTRIAXone Sodium 1,000 MG in NS 100 ML IV SCH (21:00)
[2024-10-01 00:26] VITALS: BP 103/75
[2024-10-01 03:46] VITALS: BP 109/91
[2024-10-01 07:23] VITALS: BP 121/82
[2024-10-01 15:35] VITALS: BP 110/82
[2024-10-01 19:15] VITALS: BP 140/79
[2024-10-01 23:48] VITALS: BP 105/74
[2024-10-02 05:37] VITALS: BP 110/83
[2024-10-02 08:01] VITALS: BP 120/91
[2024-10-02] MEDS ORDERED: Amoxicillin/Clavulanate K 875 MG Tab PO SCH (11:00)
[2024-10-02 13:21] VITALS: BP 109/70
[2024-10-02 15:47] VITALS: BP 121/90
[2024-10-02 20:12] VITALS: BP 119/81
[2024-10-02 20:14] VITALS: BP 119/81
[2024-10-02] MEDS ORDERED: MethylPREDNISolone Sod Succ 125 MG Vial IV SCH (21:00)
[2024-10-03 04:58] VITALS: BP 114/84
[2024-10-03 05:28] LABS: Bun/Creatinine Ratio 50.9 (12.0-20.0); Calcium, Blood 8.8 mg/dL (8.5-10.1); Creatinine, Blood 0.81 mg/dL (0.60-1.20); Potassium, Blood 4.5 mmol/L (3.5-5.5)
[2024-10-03 07:34] VITALS: BP 140/92
[2024-10-03] MEDS ORDERED: PredniSONE 20 MG Tab PO SCH (09:00)
[2024-10-03 14:29] VITALS: BP 113/89
[2024-10-03 19:49] VITALS: BP 116/92
[2024-10-04 04:16] VITALS: BP 136/101
[2024-10-04 07:31] VITALS: BP 127/95
[2024-10-04] MEDS ORDERED: ALBU90OI INH (11:05)
[2024-10-04] MEDS ORDERED: HYDHCL25 PO (11:05)
== END 2024-10-04 14:21 | DRG 871 ==
LOC: ER 18:53 → ERHOLD 18:54 → ER 18:54 → SURS 22:13 → ERHOLD 22:13 → PCU 22:13 → SURS 10-02 13:00
PROVIDERS: Emergency Medicine; Internal Medicine; ADMIT Student in an Organized Health Care Education/Training Program
PROC: 3E03329 Introduction of Other Anti-infective into Peripheral Vein, Percutaneous Approach (ICD-10-PCS; 2024-09-29)
PROC: 5A0935A Assistance with Respiratory Ventilation, Less than 24 Consecutive Hours, High Flow/Velocity Cannula (ICD-10-PCS; principal; 2024-09-30)
DX: A41.9 Sepsis, unspecified organism (principal); J14 Pneumonia due to Hemophilus influenzae; J96.21 Acute and chronic respiratory failure with hypoxia; J96.22 Acute and chronic respiratory failure with hypercapnia; J44.0 Chronic obstructive pulmonary disease with (acute) lower respiratory infection; J44.1 Chronic obstructive pulmonary disease with (acute) exacerbation; I50.22 Chronic systolic (congestive) heart failure; Z66 Do not resuscitate; R13.10 Dysphagia, unspecified; I48.0 Paroxysmal atrial fibrillation; R65.20 Severe sepsis without septic shock; E66.01 Morbid (severe) obesity due to excess calories; I11.0 Hypertensive heart disease with heart failure; F17.210 Nicotine dependence, cigarettes, uncomplicated; E89.0 Postprocedural hypothyroidism; J40 Bronchitis, not specified as acute or chronic; Z99.81 Dependence on supplemental oxygen; Z79.01 Long term (current) use of anticoagulants; Z79.51 Long term (current) use of inhaled steroids; Z79.890 Hormone replacement therapy; Z68.30 Body mass index [BMI] 30.0-30.9, adult
CPT/HCPCS: 0241U; 36415; 71046; 74230; 80048; 80053; 82803; 83605; 83735; 83880; 84145; 84484; 85025; 87040; 87070; 87077; 87185; 87205; 92526; 92610; 92611; 93005; 93010; 94640; 94664; 94762; 96374; 97110; 97162; 97165; 97530; 97535; 99285-25; A9270; J0696; J2919; J7060; J7512

== ENCOUNTER 2024-11-22 09:44 | Emergency (ER) | payer OTHER ==
[~2024-11-22] VITALS: Ht 180.3 cm; Wt 94.3 kg
[~2024-11-22 09:44] MED LIST changes: -ALBU2.5V5 INH; -ASMANEX HFA13 G6 INH; -Amiodarone HCl200 MG PO; -BUDESONIDE0.5 MG/2 M INH; -BUPR150ER PO; -FOLIC ACID0.4 MG PO; -FURO40 PO; -GUAI600T33 PO; -IPRAT-ALBUT 0.5-3 ML NEB; -JARDIANCE10 MG PO; -LEVSOD150 PO; -MICO100S TOP; -SPIR25 PO; -STIOLTO RESPIMAT4 G2 INH; -[UNRECOGNIZED DRUG - OTHER] TOP
[2024-11-22] MEDS ORDERED: GUAI600T33 PO (10:25)
[2024-11-22] MEDS ORDERED: LEVSOD150 PO (10:25)
[2024-11-22] MEDS ORDERED: BUPR150ER PO (10:26)
[2024-11-22] MEDS ORDERED: STIOLTO RESPIMAT4 G2 INH (10:26)
[2024-11-22] MEDS ORDERED: BUDESONIDE0.5 MG/2 M INH (10:26)
[2024-11-22] MEDS ORDERED: FOLIC ACID0.4 MG PO (10:26)
[2024-11-22] MEDS ORDERED: IPRAT-ALBUT 0.5-3 ML NEB (10:26)
[2024-11-22] MEDS ORDERED: [UNRECOGNIZED DRUG - OTHER] TOP (10:26)
[2024-11-22] MEDS ORDERED: ASMANEX HFA13 G6 INH (10:26)
[2024-11-22] MEDS ORDERED: JARDIANCE10 MG PO (10:26)
[2024-11-22] MEDS ORDERED: ALBU2.5V5 INH (10:26)
[2024-11-22] MEDS ORDERED: MICO100S TOP (10:26)
[2024-11-22] MEDS ORDERED: SPIR25 PO (10:27)
[2024-11-22] MEDS ORDERED: HYDHCL25 PO (10:27)
[2024-11-22] MEDS ORDERED: ALBU90OI INH (10:27)
[2024-11-22] MEDS ORDERED: Amiodarone HCl200 MG PO (10:27)
[2024-11-22] MEDS ORDERED: FURO40 PO (10:27)
[2024-11-22] MEDS ORDERED: ELIQUIS5 M2 PO (10:27)
[2024-11-22] MEDS ORDERED: Metoprolol Succ25 MG PO (10:28)
[2024-11-22 11:29] LABS: BASOPHILS ABSOLUTE AUTO 0.08 K/mm3 (0.00-0.23); BASOPHILS PERCENT AUTO 1 % (0-2); EOSINOPHILS ABSOLUTE AUTO 0.19 K/mm3 (0.00-0.68); EOSINOPHILS PERCENT AUTO 2 % (0-6); Hematocrit 41.4 % (37.0-53.0); IMMATURE GRAN ABSOLUTE AUTO 0.18 K/mm3 (0.00-0.10); IMMATURE GRAN PERCENT AUTO 2 % (0-1); LYMPHOCYTES ABSOLUTE AUTO 1.27 K/mm3 (0.84-5.20); LYMPHOCYTES PERCENT AUTO 14 % (21-46); MONOCYTES ABSOLUTE AUTO 1.02 K/mm3 (0.16-1.47); MONOCYTES PERCENT AUTO 11 % (4-13); Mean Corpuscular HGB 32.2 pg (26.0-34.0); Mean Corpuscular HGB Conc 31.4 g/dL (31.5-36.5); Mean Corpuscular Volume 103 fL (80-100); Mean Platelet Volume 9.5 fL (9.1-12.4); NEUTROPHILS ABSOLUTE AUTO 6.58 K/mm3 (1.96-9.15); NEUTROPHILS PERCENT AUTO 71 % (41-73); Platelet Count 353 K/mm3 (150-400); RDW Coefficient Variation 14.2 % (11.7-14.2); RDW Standard Deviation 53.5 fL (35.1-46.3); Red Blood Cell Count 4.04 M/mm3 (4.30-5.90); White Blood Cell Count 9.32 K/mm3 (4.00-11.30)
[2024-11-22 11:55] LABS: Albumin/Globulin Ratio 0.4 (0.8-1.8); Bilirubin, Total 0.3 mg/dL (0.1-1.0); Bun/Creatinine Ratio 26.5 (12.0-20.0); Calcium, Blood 8.3 mg/dL (8.5-10.1); Creatinine, Blood 0.91 mg/dL (0.60-1.20); Globulin, Blood 5.6 g/dL (2.2-4.0); Magnesium, Blood 2.3 mg/dL (1.6-2.4); Potassium, Blood 4.2 mmol/L (3.5-5.5); Total Protein, Blood 7.6 g/dL (6.4-8.2)
[2024-11-22 13:31] VITALS: BP 94/72
== END 2024-11-22 13:44 | disposition home or self-care (01) ==
LOC: ER 09:44
PROVIDERS: Student in an Organized Health Care Education/Training Program
DX: M21.331 Wrist drop, right wrist (principal); Z79.890 Hormone replacement therapy; Z79.899 Other long term (current) drug therapy; J44.9 Chronic obstructive pulmonary disease, unspecified; I48.0 Paroxysmal atrial fibrillation; I10 Essential (primary) hypertension; M19.90 Unspecified osteoarthritis, unspecified site; F17.210 Nicotine dependence, cigarettes, uncomplicated
CPT/HCPCS: 70450; 73110; 80053; 83735; 85025; 99284-25

== ENCOUNTER 2025-01-06 20:59 | Emergency (ER) | payer OTHER ==
[~2025-01-06] VITALS: Ht 180.3 cm; Wt 95.2 kg
[~2025-01-06 20:59] MED LIST changes: +ALBU2.5V5 INH; +ALBU90OI INH; +ASMANEX HFA13 G6 INH; +Amiodarone HCl200 MG PO; +BUDESONIDE0.5 MG/2 M INH; +BUPR150ER PO; +FOLIC ACID0.4 MG PO; +FURO40 PO; +GUAI600T33 PO; +HYDHCL25 PO; +IPRAT-ALBUT 0.5-3 ML NEB; +JARDIANCE10 MG PO; +LEVSOD150 PO; +MICO100S TOP; +Metoprolol Succ25 MG PO; +SPIR25 PO; +STIOLTO RESPIMAT4 G2 INH; +[UNRECOGNIZED DRUG - OTHER] TOP
[2025-01-06 21:37] LABS: BASOPHILS ABSOLUTE AUTO 0.04 K/mm3 (0.00-0.23); BASOPHILS PERCENT AUTO 1 % (0-2); EOSINOPHILS ABSOLUTE AUTO 0.22 K/mm3 (0.00-0.68); EOSINOPHILS PERCENT AUTO 3 % (0-6); Hematocrit 37.9 % (37.0-53.0); Hemoglobin 12.3 g/dL (13.5-17.5); IMMATURE GRAN ABSOLUTE AUTO 0.06 K/mm3 (0.00-0.10); IMMATURE GRAN PERCENT AUTO 1 % (0-1); LYMPHOCYTES ABSOLUTE AUTO 1.22 K/mm3 (0.84-5.20); LYMPHOCYTES PERCENT AUTO 15 % (21-46); MONOCYTES ABSOLUTE AUTO 1.01 K/mm3 (0.16-1.47); MONOCYTES PERCENT AUTO 13 % (4-13); Mean Corpuscular HGB Conc 32.5 g/dL (31.5-36.5); Mean Corpuscular Volume 100 fL (80-100); NEUTROPHILS ABSOLUTE AUTO 5.42 K/mm3 (1.96-9.15); NEUTROPHILS PERCENT AUTO 68 % (41-73); NRBC ABSOLUTE 0.00 K/mm3 (0.00-0.02); NRBC Auto 0.0 /100 WBC (0.0-0.2); Platelet Count 234 K/mm3 (150-400); RDW Coefficient Variation 15.9 % (11.7-14.2); RDW Standard Deviation 58.4 fL (35.1-46.3)
[2025-01-06 21:50] LABS: Alanine Aminotransfer (ALT/SGP 16.0 U/L (12-78); Albumin, Blood 2.6 g/dL (3.4-5.0); Albumin/Globulin Ratio 0.5 (0.8-1.8); Anion Gap 6.0 mmol/L (3-11); Aspartate Aminotrans (AST/SGOT 15.0 U/L (12-37); Bilirubin, Total 0.6 mg/dL (0.1-1.0); Blood Urea Nitrogen 22.0 mg/dL (8-24); CO2, Blood 32.0 mmol/L (21-32); Calcium, Blood 8.1 mg/dL (8.5-10.1); Chloride, Blood 100.0 mmol/L (98-108); Creatinine, Blood 0.9 mg/dL (0.60-1.20); Globulin, Blood 5.0 g/dL (2.2-4.0); Glucose, Blood 112.0 mg/dL (70-99); Potassium, Blood 4.1 mmol/L (3.5-5.5); Sodium, Blood 134.0 mmol/L (136-145); Total Protein, Blood 7.6 g/dL (6.4-8.2)
[2025-01-06] MEDS ORDERED: Ketorolac Tromethamine 15mg Vial IV ONE (22:40)
[2025-01-06 23:29] VITALS: BP 143/87
== END 2025-01-06 23:30 | disposition home or self-care (01) ==
LOC: ER 20:59
PROVIDERS: Emergency Medicine
DX: R07.81 Pleurodynia (principal); W01.0XXA Fall on same level from slipping, tripping and stumbling without subsequent striking against object, initial encounter; J44.9 Chronic obstructive pulmonary disease, unspecified; I48.0 Paroxysmal atrial fibrillation; I10 Essential (primary) hypertension; E03.9 Hypothyroidism, unspecified; F32.A Depression, unspecified; F17.210 Nicotine dependence, cigarettes, uncomplicated; Z79.01 Long term (current) use of anticoagulants; Z79.890 Hormone replacement therapy; Z79.899 Other long term (current) drug therapy
CPT/HCPCS: 71045; 80053; 85025; J1885

== ENCOUNTER 2025-01-08 00:08 | Inpatient (IN) | payer OTHER ==
[~2025-01-08] VITALS: Ht 180.3 cm; Wt 95.1 kg
[~2025-01-08 00:08] MED LIST changes: +Critic-Aid142 GM TOP; -FURO40 PO; +LEVOTHYROXINE PO; -LEVSOD150 PO; -MICO100S TOP; -Metoprolol Succ25 MG PO; +TOPROL XL50 M1 PO
[2025-01-08] MEDS ORDERED: Ketorolac Tromethamine 15mg Vial IV ONE (01:00)
[2025-01-08 01:13] LABS: BASOPHILS ABSOLUTE AUTO 0.05 K/mm3 (0.00-0.23); BASOPHILS PERCENT AUTO 1 % (0-2); EOSINOPHILS ABSOLUTE AUTO 0.31 K/mm3 (0.00-0.68); EOSINOPHILS PERCENT AUTO 3 % (0-6); Hematocrit 38.7 % (37.0-53.0); Hemoglobin 12.3 g/dL (13.5-17.5); IMMATURE GRAN ABSOLUTE AUTO 0.07 K/mm3 (0.00-0.10); IMMATURE GRAN PERCENT AUTO 1 % (0-1); LYMPHOCYTES ABSOLUTE AUTO 0.88 K/mm3 (0.84-5.20); LYMPHOCYTES PERCENT AUTO 10 % (21-46); MONOCYTES ABSOLUTE AUTO 1.24 K/mm3 (0.16-1.47); MONOCYTES PERCENT AUTO 14 % (4-13); Mean Corpuscular HGB Conc 31.8 g/dL (31.5-36.5); Mean Corpuscular Volume 102 fL (80-100); NEUTROPHILS ABSOLUTE AUTO 6.58 K/mm3 (1.96-9.15); NEUTROPHILS PERCENT AUTO 72 % (41-73); NRBC ABSOLUTE 0.00 K/mm3 (0.00-0.02); NRBC Auto 0.0 /100 WBC (0.0-0.2); Platelet Count 227 K/mm3 (150-400); RDW Coefficient Variation 15.9 % (11.7-14.2); RDW Standard Deviation 60.8 fL (35.1-46.3)
[2025-01-08 01:30] LABS: Prothrombin Time Results 13.5 Sec (9.7-11.5)
[2025-01-08 01:32] LABS: Alanine Aminotransfer (ALT/SGP 15.0 U/L (12-78); Albumin, Blood 2.5 g/dL (3.4-5.0); Albumin/Globulin Ratio 0.5 (0.8-1.8); Anion Gap 8.0 mmol/L (3-11); Aspartate Aminotrans (AST/SGOT 18.0 U/L (12-37); Bilirubin, Total 0.5 mg/dL (0.1-1.0); Blood Urea Nitrogen 27.0 mg/dL (8-24); CO2, Blood 30.0 mmol/L (21-32); Calcium, Blood 8.0 mg/dL (8.5-10.1); Chloride, Blood 103.0 mmol/L (98-108); Creatinine, Blood 0.82 mg/dL (0.60-1.20); Globulin, Blood 4.9 g/dL (2.2-4.0); Glucose, Blood 121.0 mg/dL (70-99); Potassium, Blood 4.5 mmol/L (3.5-5.5); Sodium, Blood 136.0 mmol/L (136-145); Total Protein, Blood 7.4 g/dL (6.4-8.2)
[2025-01-08] MEDS ORDERED: CefTRIAXone Sodium 1,000 MG in NS 100 ML IV ONE (05:20)
[2025-01-08] MEDS ORDERED: Ipratropium/Albuterol SulF 2.5-0.5MG/3 ML Amp INH SCH (06:50)
[2025-01-08] MEDS ORDERED: Polyethylene Glycol 3350 17 gm PO PRN (07:20)
[2025-01-08] MEDS ORDERED: Enoxaparin 40 MG/0.4 ML SYR SC SCH (09:00)
[2025-01-08] MEDS ORDERED: Furosemide 10 MG / ML 2ML Vial IV SCH (09:00)
[2025-01-08] MEDS ORDERED: Lactobacil 2-S.Thermo-Bifido 1 1 Cap PO SCH (09:00)
[2025-01-08 10:25] VITALS: BP 126/75
--- NOTE | 2025-01-08 10:31 | NUR ---
ADMISSION NOTE: PT ARRIVED VIA WHEELCHAIR TO ROOM 305 FROM ED. PT ON 5L O2 VIA OXYMASK. COMPLAINTS OF SOB, SO TITRATED UP TO 6L. VSS WITH ELEVATED RESPIRATONS OF 28 AT TIME OF ADMISSION. UP IN CHAIR D/T ORTHOPNEA. IV IN R HAND FLUSHES W/O PAIN AND/OR DISCOMFORT. CALL LT WITHIN REACH.
[2025-01-08] MEDS ORDERED: Ketorolac Tromethamine 15mg Vial IV PRN (12:40)
[2025-01-08 13:12] LABS: Acinetobacter baumannii DNA Not Detected copy/mL (NOT DETECT); CTX-M Resistance Gene Not Detected; Enterobacter cloacae DNA Not Detected copy/mL (NOT DETECT); Escherichia coli DNA Not Detected copy/mL (NOT DETECT); Haemophilus influenzae DNA Not Detected copy/mL (NOT DETECT); IMP Resistance Gene Not Detected; KPC Resistance Gene Not Detected; Klebsiella aerogenes DNA Not Detected copy/mL (NOT DETECT); Klebsiella oxytoca DNA Not Detected copy/mL (NOT DETECT); Klebsiella pneumoniae DNA Not Detected copy/mL (NOT DETECT); Moraxella catarrhalis DNA Not Detected copy/mL (NOT DETECT); Proteus sp DNA Not Detected copy/mL (NOT DETECT); Pseudomonas aeruginosa DNA Detected Bin 10^6 copy/mL (NOT DETECT); Serratia marcescens DNA Not Detected copy/mL (NOT DETECT); Staphylococcus aureus DNA Not Detected copy/mL (NOT DETECT); Streptococcus agalactiae DNA Not Detected copy/mL (NOT DETECT); Streptococcus pneumoniae DNA Not Detected copy/mL (NOT DETECT); Streptococcus pyogenes DNA Not Detected copy/mL (NOT DETECT)
[2025-01-08 13:13] LABS: Chlamydia pneumonia Not Detected (NOT DETECT); Human Coronavirus RNA Not Detected (NOT DETECT); Human Metapneumovirus RNA Not Detected (NOT DETECT); Influenza virus A RNA Not Detected (NOT DETECT); Influenza virus B RNA Not Detected (NOT DETECT); NDM Resistance Gene Not Detected; Respiratory syncytial Vir RNA Not Detected (NOT DETECT); Rhinovirus+Enterovirus RNA Not Detected (NOT DETECT); VIM Resistance Gene Not Detected
[2025-01-08] MEDS ORDERED: NS 250 ML IV PRN (13:50)
[2025-01-08] MEDS ORDERED: LOSA25 PO (15:04)
[2025-01-08] MEDS ORDERED: MELATONIN5 M1 PO (15:05)
[2025-01-08] MEDS ORDERED: SENNA LAXATIVE8.6 MG PO (15:14)
[2025-01-08] MEDS ORDERED: TAMS.4ER PO (15:16)
[2025-01-08] MEDS ORDERED: Acetaminophen325 M1 PO (15:21)
[2025-01-08] MEDS ORDERED: BISA10S PR (15:25)
[2025-01-08] MEDS ORDERED: Calcium Carbon500 MG PO (15:26)
[2025-01-08] MEDS ORDERED: CALMOSEPTINE TOP (15:33)
[2025-01-08 15:51] VITALS: BP 106/59
[2025-01-08] MEDS ORDERED: Fleet Enema132 ML PR (15:55)
[2025-01-08] MEDS ORDERED: HYDPAM25 PO (15:56)
[2025-01-08] MEDS ORDERED: IMODIUM A-D2 M3 PO (15:59)
[2025-01-08] MEDS ORDERED: DULCOLAX400 MG/5 M PO (16:04)
[2025-01-08] MEDS ORDERED: MIRALAX1714 PO (16:06)
[2025-01-08] MEDS ORDERED: Mometasone Furoate Inhaler 220 mcg 14 ACT INH SCH (17:25)
--- NOTE | 2025-01-08 17:37 | NUR ---
PT IS ALERT AND ORIENTED X3-4, PLEASANT, VERY TANA[place]. REPORTS SEEING CATS RUNNING AROUND ROOM. PT STATES THAT HE KNOWS HE IS HALLUCINATING AND HAS BEEN FOR SEVERAL MONTHS. PT STATED THAT HE IS GLAD IT IS CATS AND NOT SPIDERS. PT SLEEPS IN RECLINER DUE TO SOB WITH LYING DOWN. 5-6L NC, CONT PULSE OXIMETER IN ROOM SAT 85% WHEN TALKING AND 91% AT REST. REPORTS PAIN IN LEFT SIDE THAT RADIATES TO L RIBS. SHARP PAIN. TREATED PER EMAR. 1-2 PERSON ASSIST. 1 PERSON STAND PIVOT TO BSC. CHAIR ALARM ON FOR SAFETY
[2025-01-08] MEDS ORDERED: Piperacillin/Tazobactam Sod 3.375 GM in NS 100 ML IV SCH (18:00)
[2025-01-08 20:26] VITALS: BP 116/58
[2025-01-08] MEDS ORDERED: Docusate Sodium/Senna 1 Tab PO SCH (21:00)
[2025-01-08] MEDS ORDERED: Magnesium Hydroxide Conc 10 ML UDC PO ONE (21:25)
[2025-01-09 03:18] VITALS: BP 109/63
[2025-01-09 05:07] LABS: BASOPHILS ABSOLUTE AUTO 0.02 K/mm3 (0.00-0.23); BASOPHILS PERCENT AUTO 0 % (0-2); EOSINOPHILS ABSOLUTE AUTO 0.00 K/mm3 (0.00-0.68); EOSINOPHILS PERCENT AUTO 0 % (0-6); Hematocrit 39.4 % (37.0-53.0); Hemoglobin 12.3 g/dL (13.5-17.5); IMMATURE GRAN ABSOLUTE AUTO 0.04 K/mm3 (0.00-0.10); IMMATURE GRAN PERCENT AUTO 1 % (0-1); LYMPHOCYTES ABSOLUTE AUTO 0.57 K/mm3 (0.84-5.20); LYMPHOCYTES PERCENT AUTO 7 % (21-46); MONOCYTES ABSOLUTE AUTO 0.22 K/mm3 (0.16-1.47); MONOCYTES PERCENT AUTO 3 % (4-13); Mean Corpuscular HGB Conc 31.2 g/dL (31.5-36.5); Mean Corpuscular Volume 102 fL (80-100); NEUTROPHILS ABSOLUTE AUTO 7.14 K/mm3 (1.96-9.15); NEUTROPHILS PERCENT AUTO 89 % (41-73); NRBC ABSOLUTE 0.00 K/mm3 (0.00-0.02); NRBC Auto 0.0 /100 WBC (0.0-0.2); Platelet Count 228 K/mm3 (150-400); RDW Coefficient Variation 15.6 % (11.7-14.2); RDW Standard Deviation 59.7 fL (35.1-46.3)
[2025-01-09 05:41] LABS: Albumin, Blood 2.5 g/dL (3.4-5.0); Anion Gap 6 mmol/L (3-11); Blood Urea Nitrogen 29 mg/dL (8-24); CO2, Blood 35 mmol/L (21-32); Calcium, Blood 8.2 mg/dL (8.5-10.1); Chloride, Blood 97 mmol/L (98-108); Creatinine, Blood 0.90 mg/dL (0.60-1.20); Glucose, Blood 123 mg/dL (70-99); Magnesium, Blood 2.5 mg/dL (1.6-2.4); Phosphorus, Blood 3.9 mg/dL (2.5-4.9); Potassium, Blood 4.8 mmol/L (3.5-5.5); Sodium, Blood 133 mmol/L (136-145)
[2025-01-09] MEDS ORDERED: Levothyroxine Sodium 0.15 MG Tab PO SCH (06:00)
[2025-01-09] MEDS ORDERED: CefTRIAXone Sodium 1,000 MG in NS 100 ML IV SCH (09:00)
[2025-01-09 10:13] VITALS: BP 115/87
--- NOTE | 2025-01-09 10:37 | NUR ---
PT ARRIVED IN PCU 08 VIA BED PT ON 8L OF O2 VIA NASAL CANNULA SATS ABOVE 90%, PT HAS SOME SOB GETS WORSE WITH TALKING, PT HAS CONGESTED COUGH REPORTED COUGHING UP SOME SPUTUM, SPUTUM CUP IN THE TABLE. LUNGS FINE CRACKLES AT BASELINE VERY DIMINISHED. VITALS HRR ST 100'S, SBPS 115, AFEBRILE. PT ALERT AND ORIENTED X3-4 VERY BISHOP PAIUTE. ABLE TO CONVERSE WITH NO ISSUES. CHEST XRAY DONE UPON ARRIVAL, AWAITING FOR RESULT. DR NICOLE ROUNDED ON PT, NO NEW ORDERS AT THIS TIME TO KEEP MONTIORING PT.
[2025-01-09 12:27] VITALS: BP 123/87
[2025-01-09 16:08] VITALS: BP 118/95
--- NOTE | 2025-01-09 17:32 | NUR ---
NO ACUTE CHENGE SINCE TRANSFER OF CARE. PT HAS BEEN UP IN THE RECLIENR MOST OF THE SHIFT, WOLFGANGShyanne SAUCEDA CAME BY TO VISIT AND WAS GIVEN UPDATE REGARDING PT'S STATUS, GENO GEORGE MAQUON CALLED AND WAS GIVEN UPDATE WELL. PT REMAINS ON 8L OF O2 VIA NASAL CANNULA PT DESATS MOSTLY WHEN TALKING AND GETTING SOB, PT IS A TALKER, REDIRECTED TO PAUSE AND TAKE SOME DEEP BREATHS. PT HAS LLQ PAIN WHEN COUGHING PT REPORTS HX OF HERNIA PT OFFERED A ABD BINDER TO HELP, OR A PILLOW TO USE A SPLINT WHEN COUGHING PT AGREEABLE. PT WAS GIVEN TORADOL X1 FOR PAIN. PT INSTRUCTED OF FLUTTER VALVE USE TO HELP BREAK UP MUCUS AND USE OF SPIROMETER PT ABLE TO DEMONSTRATE. VTIALS REMAINED STABLE AT THIS TIME. WILL REPORT TO ONCOMING SHIFT
[2025-01-09] MEDS ORDERED: Piperacillin/Tazobactam Sod 4.5 GM in NS 100 ML IV SCH (18:00)
[2025-01-09 19:59] VITALS: BP 153/111
[2025-01-09 23:54] VITALS: BP 104/69
[2025-01-10 04:09] VITALS: BP 121/90
[2025-01-10 04:45] LABS: Hematocrit 41.5 % (37.0-53.0); Hemoglobin 13.1 g/dL (13.5-17.5); Mean Corpuscular HGB Conc 31.6 g/dL (31.5-36.5); Mean Corpuscular Volume 102 fL (80-100); NRBC ABSOLUTE 0.00 K/mm3 (0.00-0.02); NRBC Auto 0.0 /100 WBC (0.0-0.2); Platelet Count 260 K/mm3 (150-400); RDW Coefficient Variation 15.5 % (11.7-14.2); RDW Standard Deviation 58.4 fL (35.1-46.3)
--- NOTE | 2025-01-10 04:57 | NUR ---
SHIFT SUMMARY PATIENT ALERT AND ORIENTED X4. MEDICATED PER EMAR FOR PAIN. TITRATED PATIENT'S OXYGEN DOWN TO 3 LITERS O2 VIA NC. VITAL SIGNS STABLE. WILL CONTINUE TO MONITOR. CALL LIGHT WITHIN REACH.
[2025-01-10 05:04] LABS: Albumin, Blood 2.3 g/dL (3.4-5.0); Anion Gap 7 mmol/L (3-11); Blood Urea Nitrogen 36 mg/dL (8-24); CO2, Blood 34 mmol/L (21-32); Calcium, Blood 8.1 mg/dL (8.5-10.1); Chloride, Blood 97 mmol/L (98-108); Creatinine, Blood 1.12 mg/dL (0.60-1.20); Glucose, Blood 144 mg/dL (70-99); Magnesium, Blood 2.4 mg/dL (1.6-2.4); Phosphorus, Blood 3.4 mg/dL (2.5-4.9); Potassium, Blood 4.6 mmol/L (3.5-5.5); Sodium, Blood 133 mmol/L (136-145)
[2025-01-10 07:36] VITALS: BP 126/90
[2025-01-10 12:34] VITALS: BP 113/82
[2025-01-10 16:15] VITALS: BP 118/70
--- NOTE | 2025-01-10 17:48 | NUR ---
PT SUMMARY; PT HAS BEEN ON 3L OF O2 AT REST NEEDING 4L WITH EXERTION, SATS KEOT ABOVE 90%. THE REST OF THE VITALS STABLE. PT HAS BEEN UP IN THE CHAIR AND TOILET 1PA FOR TRANSFER. PT ABLE TO WORK WITH PT/OT, RECOMMENDING HOME HEALTH. PT HASN'T HAD BM DAY 5 PT HAS BEEN ON STOOOL SOFTENER DAILY, BROWN COW AND MIRALAX WAS GIVEN THIS MORNING WITH NO RESULT. PT REPORTED USE OF ENEMA BEFORE, MD MADE AWARE RECEIVD ORDER FOR BOTH ENEMA AND SUPPOSITORY, PT AGREED WITH ENEMA. PT CURRENTLY TRYING TO HAVE A BM IN THE COMMODE. NO SUCCESS YET OF THIS TIME. NO OTHER ACUTE CHANGE FOR THE SHIFT, WILL REPORT TO ONCOMING SHIFT
[2025-01-10 19:25] VITALS: BP 84/65; BP 94/65
[2025-01-10 23:06] VITALS: BP 101/68
[2025-01-11] VITALS (7 sets, daily range): BP systolic 91–115; BP diastolic 57–79
--- NOTE | 2025-01-11 04:03 | NUR ---
SHIFT SUMMARY PATIENT IS ALERT AND ORIENTED. PATIENT HAS HAD NO ACUTE EVENTS THIS SHIFT. PATIENT HAS REPORTED PAIN THIS SHIFT AND MEDICATED PER EMAR. PATIENT HAS HAD NO COMPLAINTS OF SOB, NAUSEA, OR VOMITTING THIS SHIFT. PATIENT HAS HAD SEVERAL SMALL BM THIS SHIFT AFTER RECEIVING ENEMA ON DAY SHIFT. PATIENT HAS HAD GOOD OUTPUT OF URINE. PATIENT STILL ON 3-4L O2 DEPENDING ON EXERTION. BED IN LOCKED AND LOWEST POSITION. CALL LIGHT IN PLACE.
[2025-01-11 04:06] LABS: Hematocrit 41.3 % (37.0-53.0); Hemoglobin 13.0 g/dL (13.5-17.5); Mean Corpuscular HGB Conc 31.5 g/dL (31.5-36.5); Mean Corpuscular Volume 102 fL (80-100); NRBC ABSOLUTE 0.00 K/mm3 (0.00-0.02); NRBC Auto 0.0 /100 WBC (0.0-0.2); Platelet Count 256 K/mm3 (150-400); RDW Coefficient Variation 15.9 % (11.7-14.2); RDW Standard Deviation 59.7 fL (35.1-46.3)
[2025-01-11 04:30] LABS: Albumin, Blood 2.4 g/dL (3.4-5.0); Anion Gap 7 mmol/L (3-11); Blood Urea Nitrogen 45 mg/dL (8-24); CO2, Blood 33 mmol/L (21-32); Calcium, Blood 7.7 mg/dL (8.5-10.1); Chloride, Blood 99 mmol/L (98-108); Creatinine, Blood 1.13 mg/dL (0.60-1.20); Glucose, Blood 121 mg/dL (70-99); Magnesium, Blood 2.3 mg/dL (1.6-2.4); Phosphorus, Blood 3.4 mg/dL (2.5-4.9); Potassium, Blood 4.1 mmol/L (3.5-5.5); Sodium, Blood 135 mmol/L (136-145)
--- NOTE | 2025-01-11 17:31 | NUR ---
NO ACUTE CHANGES THIS SHIFT. PT IS CURRENTLY ON 4L NC/2L NC AT BASELINE. IV ANTIBIOTICS CONTINUED. PT APPEARS TO BE IMPROVING. 91% ON CONT PULS OX. ALERT AND ORIENTED X4. CALLS APPROPRIATELY. EXTREMELY [place]. SBA WITH STAND AND URINAL. MED STATUS
[2025-01-12 03:58] VITALS: BP 142/95
--- NOTE | 2025-01-12 05:18 | NUR ---
SHIFT SUMMARY PT ALERT AND ORIENTED X4. PT UP TO CHAIR WITH SBA. PT ON 4L OXYGEN NC, BASELINE IS 2L. PT'S LUNGS DIMINSIHED T/O. PT WITH PRODUCTIVE COUGH. ENCOURAGED INCETIVE SPIROMETER USE. PT C/O OF PAIN WHEN COUGHING. PRN OXYCODONE GIVEN. PT NSR HR 80S ON MONITOR. DENIES CP/PRESSURE. ADEQUATE URINE OUTPUT. VSS. POTENTIALLY D/C TO [facility] TODAY.
[2025-01-12 07:43] VITALS: BP 126/87
[2025-01-12 11:29] VITALS: BP 101/62
[2025-01-12 15:44] VITALS: BP 106/79
--- NOTE | 2025-01-12 17:07 | NUR ---
PT IS A&Ox4 AND ABLE TO MAKE NEEDS KNOWN. HE IS ON 2 1/2LNC W/O2 SATS > 92%. HE IS A SBA TO USE THE URINAL AND THEN USES BSC FOR BM'S. CONTINUES TO C/O PAIN TO THE LEFT SIDE AND HAS BEEN RECEIVING PRN PAIN MEDS PER EMAR. NO OTHER NEEDS OR CONCERNS NOTED @ THIS. HE IS SITTING UP IN THE RECLINER IN THE ROOM WATCHING TV @ THIS TIME. CALL LIGHT AND PERSONAL BELONGINGS IN REACH.
[2025-01-12 20:09] VITALS: BP 97/73
[2025-01-12 23:07] VITALS: BP 116/78
[2025-01-13] VITALS (9 sets, daily range): BP systolic 88–132; BP diastolic 74–96
--- NOTE | 2025-01-13 04:54 | NUR ---
SHIFT SUMMARY A/OX4, 1P ASSIST FOR TRANSFERS. DENIES PAIN. CURRENTLY ON 3L O2. NO ACUTE CHANGES AT THIS TIME. POSSIBLE D/C TODAY
--- NOTE | 2025-01-13 09:26 | NUR ---
LOW BP- PRIOR TO AM MEDS, BP RECHECKED 88/[address] ALVAREZ SHE IS AWARE AND ORDER TO HOLD ALL BP AFFECTING MEDS
[2025-01-13 10:46] LABS: Hematocrit 39.2 % (37.0-53.0); Hemoglobin 12.7 g/dL (13.5-17.5); Mean Corpuscular HGB Conc 32.4 g/dL (31.5-36.5); Mean Corpuscular Volume 100 fL (80-100); NRBC ABSOLUTE 0.00 K/mm3 (0.00-0.02); NRBC Auto 0.0 /100 WBC (0.0-0.2); Platelet Count 238 K/mm3 (150-400); RDW Coefficient Variation 15.4 % (11.7-14.2); RDW Standard Deviation 57.3 fL (35.1-46.3)
[2025-01-13 11:09] LABS: Magnesium, Blood 1.9 mg/dL (1.6-2.4)
[2025-01-13 11:10] LABS: Albumin, Blood 2.3 g/dL (3.4-5.0); Anion Gap 6 mmol/L (3-11); Blood Urea Nitrogen 35 mg/dL (8-24); CO2, Blood 34 mmol/L (21-32); Calcium, Blood 8.0 mg/dL (8.5-10.1); Chloride, Blood 98 mmol/L (98-108); Creatinine, Blood 0.94 mg/dL (0.60-1.20); Glucose, Blood 129 mg/dL (70-99); Phosphorus, Blood 2.3 mg/dL (2.5-4.9); Potassium, Blood 4.3 mmol/L (3.5-5.5); Sodium, Blood 134 mmol/L (136-145)
--- NOTE | 2025-01-13 17:42 | NUR ---
SHIFT SUMMARY- PT ALERT AND ORIENTED, 1P SBA WITH AMBULATION,, INDEPENDENT WITH THE URINAL. PT HAS SCHEDULED IV ABX, BP HAS BEEN GREATLY REDUCED TODAY FROM PREVIOUS. BEING HYPOTENSIVE AT THE START OF THE DAY, ALL BP MEDS HELD. BP THIS EVENING REMAINS LOW, PO LASIX DOSE IS ORDERED WITH NO PARAMETERS. WILL CALL DR ALVAREZ FOR PARAMETERS. PT IS CURRENTLY SITTING AT THE EOB WITH THE CALL LIGHT IN REACH EATING DINNER. NO CURRENT S&S OF DISTRESS NOTED.
[2025-01-13] MEDS ORDERED: Ketorolac Tromethamine 15mg Vial IV PRN (17:45)
[2025-01-13] MEDS ORDERED: Piperacillin/Tazobactam Sod 4.5 GM in NS 100 ML IV SCH (18:00)
[2025-01-14] VITALS (7 sets, daily range): BP systolic 95–117; BP diastolic 61–85
--- NOTE | 2025-01-14 04:06 | NUR ---
SHIFT SUMMARY 79 YR M ADMITTED ON 01/08/25. FULL CODE, NO ACUTE CHANGES THIS SHIFT. PT C/O LEFT FLANK PAIN AND MEDICATED PER EMAR. HE IS A&O X 4, PLEASANT AND COOPERATIVE WITH CARE. PER DERRICK CAR OPERATOR, PT WAS AFIB @ 105 WITH NO ADVERSE EVENTS. NO NEW EVENTS TO REPORT. BED IN LOW POSITION AND CALL LIGHT IN REACH.
[2025-01-14 06:06] LABS: Hematocrit 38.5 % (37.0-53.0); Hemoglobin 12.3 g/dL (13.5-17.5); Mean Corpuscular HGB Conc 31.9 g/dL (31.5-36.5); Mean Corpuscular Volume 101 fL (80-100); NRBC ABSOLUTE 0.00 K/mm3 (0.00-0.02); NRBC Auto 0.0 /100 WBC (0.0-0.2); Platelet Count 228 K/mm3 (150-400); RDW Coefficient Variation 15.6 % (11.7-14.2); RDW Standard Deviation 58.2 fL (35.1-46.3)
[2025-01-14 06:31] LABS: Albumin, Blood 2.2 g/dL (3.4-5.0); Anion Gap 6 mmol/L (3-11); Blood Urea Nitrogen 32 mg/dL (8-24); CO2, Blood 32 mmol/L (21-32); Calcium, Blood 7.4 mg/dL (8.5-10.1); Chloride, Blood 101 mmol/L (98-108); Creatinine, Blood 1.00 mg/dL (0.60-1.20); Glucose, Blood 108 mg/dL (70-99); Magnesium, Blood 2.0 mg/dL (1.6-2.4); Phosphorus, Blood 4.2 mg/dL (2.5-4.9); Potassium, Blood 4.2 mmol/L (3.5-5.5); Sodium, Blood 135 mmol/L (136-145)
[2025-01-14] MEDS ORDERED: Polyethylene Glycol 3350 17 gm PO SCH (17:00)
--- NOTE | 2025-01-14 17:41 | NUR ---
SHIFT SUMMARY- PT ALERT AND ORIENTED X4. HE IS ABLE TO MAKE HIS NEEDS KNOWN. RUNNING A FLUTTER ON TELE. PT HAS NOT RECIEVED HIS BP AFFECTING MEDS FOR THE PAST 2 DAYS HIS BP HAS BEEN SOFT WITH SBP IN THE 80'S AND LOW 90'S. MD AWARE THE MEDS ARE BEING HELD, AND SAID CONTINUE TO HOLD IF HIS BP IS LOW. THIS EVENING HIS LASIX WAS GIVEN HIS SBP WAS 105. PT HAS C/O LUQ PAIN TODAY, DESCRIBES SUDDEN SHARP AND STABBING, LIKE A JAB. OXY AND TORADOL WERE NOT EFFECTIVE IN TREATING THE PAIN. CT ABD CHEST WAS DONE. MIRALAX ORDERED AND PT RECIEVED THE DOSE THIS EVENING. PT IS CURRENTLY SITTING AT THE EOB PREPARING TO EAT HIS DINNER. NO CURRENT S&S OF DISTRESS NOTED.
[2025-01-14] MEDS ORDERED: Ipratropium/Albuterol SulF 2.5-0.5MG/3 ML Amp INH SCH (20:00)
[2025-01-14] MEDS ORDERED: Albuterol 2.5 MG/3 ML VIAL INH PRN (23:35)
[2025-01-15 04:13] VITALS: BP 121/79
--- NOTE | 2025-01-15 04:31 | NUR ---
SHIFT SUMMARY 79 YR M ADMITTED ON 01/08/25. FULL CODE. NO ACUTE CHANGES THIS SHIFT. PT CONTINUES TO MEDICATED FOR LUQ PAIN. HE IS A&O X 4 AND ABLE TO MAKE HIS NEEDS KNOWN. NO ADVERSE EVENTS REPORTED FROM Refinder by Gnow[facility]. MUNIR W/ KYLAH'S @ 89 AT 0350. NO NEW CHANGES TO REPORT. BED IN LOW POSITION AND CALL LIGHT IN REACH.
[2025-01-15 04:52] LABS: Hematocrit 38.5 % (37.0-53.0); Hemoglobin 12.6 g/dL (13.5-17.5); Mean Corpuscular HGB Conc 32.7 g/dL (31.5-36.5); Mean Corpuscular Volume 101 fL (80-100); NRBC ABSOLUTE 0.00 K/mm3 (0.00-0.02); NRBC Auto 0.0 /100 WBC (0.0-0.2); Platelet Count 238 K/mm3 (150-400); RDW Coefficient Variation 15.8 % (11.7-14.2); RDW Standard Deviation 58.3 fL (35.1-46.3)
[2025-01-15 05:24] LABS: Anion Gap 6.0 mmol/L (3-11); Blood Urea Nitrogen 30.0 mg/dL (8-24); CO2, Blood 31.0 mmol/L (21-32); Calcium, Blood 7.5 mg/dL (8.5-10.1); Chloride, Blood 102.0 mmol/L (98-108); Creatinine, Blood 1.06 mg/dL (0.60-1.20); Glucose, Blood 94.0 mg/dL (70-99); Potassium, Blood 4.3 mmol/L (3.5-5.5); Sodium, Blood 135.0 mmol/L (136-145)
[2025-01-15 07:30] VITALS: BP 120/92
[2025-01-15 14:50] VITALS: BP 97/69
--- NOTE | 2025-01-15 18:37 | NUR ---
DAY SUMMARY NO ACCUTE CHANGES THIS SHIFT, VSS (STILL HAVING SOME SOFT BP'S 97/69 ON AFTERNOON VS), UP TO CHIAR FOR MOST OF THE DAY & AT THIS TIME, CALL LIGHT IN REACH, WILL CONT TO MONITOR UNTIL REPORT GIVEN TO ONCOMING NURSE.
[2025-01-15 19:11] VITALS: BP 107/69
[2025-01-15 23:50] VITALS: BP 101/72
[2025-01-16 03:59] VITALS: BP 91/73
--- NOTE | 2025-01-16 04:21 | NUR ---
SHIFT SUMMARY 79 YR M ADMITTED ON 01/08/25. FULL CODE. NO ACUTE CHANGES THIS SHIFT. PER LABORER OPERATOR. PT IS AFLUTTER @ 74. PT C/O RIGHT FLANK PAIN AND MEDICATED PER EMAR. A&O X 4 AND ABLE TO MAKE NEEDS KNOWN. PT APPEARS TO HAVE RESTED FAIRLY COMFORTABLY THROUGHOUT THE NIGHT. NO NEW CHANGES TO REPORT. BED IN LOW POSITION AND CALL LIGHT IN REACH.
[2025-01-16 04:43] LABS: Hematocrit 37.5 % (37.0-53.0); Hemoglobin 12.2 g/dL (13.5-17.5); Mean Corpuscular HGB Conc 32.5 g/dL (31.5-36.5); Mean Corpuscular Volume 102 fL (80-100); NRBC ABSOLUTE 0.00 K/mm3 (0.00-0.02); NRBC Auto 0.0 /100 WBC (0.0-0.2); Platelet Count 226 K/mm3 (150-400); RDW Coefficient Variation 15.8 % (11.7-14.2); RDW Standard Deviation 59.0 fL (35.1-46.3)
[2025-01-16 05:15] LABS: Anion Gap 6.0 mmol/L (3-11); Blood Urea Nitrogen 34.0 mg/dL (8-24); CO2, Blood 35.0 mmol/L (21-32); Calcium, Blood 7.7 mg/dL (8.5-10.1); Chloride, Blood 100.0 mmol/L (98-108); Creatinine, Blood 1.29 mg/dL (0.60-1.20); Glucose, Blood 85.0 mg/dL (70-99); Potassium, Blood 4.3 mmol/L (3.5-5.5); Sodium, Blood 137.0 mmol/L (136-145)
[2025-01-16 07:16] VITALS: BP 131/105
[2025-01-16 07:17] VITALS: BP 105/69
[2025-01-16 15:31] VITALS: BP 106/61
[2025-01-16 19:11] VITALS: BP 101/64
[2025-01-16 23:11] VITALS: BP 99/59
--- NOTE | 2025-01-17 03:37 | NUR ---
SHIFT SUMMARY ADMITTED FOR COPD EXACERBATION. FULL CODE. IV ANTIB RX ARE SCHEDULED. HE IS A&O X4, 1 ASSIST W/FWW, ON HIS BASELINE OF 2 LPM O2 VIA NC. TELEMETRY: AFLUTTER @ 92 BPM. CARDIAC DIET. HE LIVES IN AN [facility]. [facility] IS A [facility]. NO NEW CONCERNS THIS SHIFT.
[2025-01-17 04:11] VITALS: BP 93/71
[2025-01-17 04:35] LABS: BASOPHILS ABSOLUTE AUTO 0.07 K/mm3 (0.00-0.23); BASOPHILS PERCENT AUTO 1 % (0-2); EOSINOPHILS ABSOLUTE AUTO 0.48 K/mm3 (0.00-0.68); EOSINOPHILS PERCENT AUTO 3 % (0-6); Hematocrit 37.5 % (37.0-53.0); Hemoglobin 12.1 g/dL (13.5-17.5); IMMATURE GRAN ABSOLUTE AUTO 0.69 K/mm3 (0.00-0.10); IMMATURE GRAN PERCENT AUTO 5 % (0-1); LYMPHOCYTES ABSOLUTE AUTO 1.41 K/mm3 (0.84-5.20); LYMPHOCYTES PERCENT AUTO 9 % (21-46); MONOCYTES ABSOLUTE AUTO 1.29 K/mm3 (0.16-1.47); MONOCYTES PERCENT AUTO 9 % (4-13); Mean Corpuscular HGB Conc 32.3 g/dL (31.5-36.5); Mean Corpuscular Volume 100 fL (80-100); NEUTROPHILS ABSOLUTE AUTO 11.19 K/mm3 (1.96-9.15); NEUTROPHILS PERCENT AUTO 74 % (41-73); NRBC ABSOLUTE 0.00 K/mm3 (0.00-0.02); NRBC Auto 0.0 /100 WBC (0.0-0.2); Platelet Count 214 K/mm3 (150-400); RDW Coefficient Variation 15.9 % (11.7-14.2); RDW Standard Deviation 58.6 fL (35.1-46.3)
[2025-01-17 04:55] LABS: Anion Gap 8.0 mmol/L (3-11); Blood Urea Nitrogen 35.0 mg/dL (8-24); CO2, Blood 29.0 mmol/L (21-32); Calcium, Blood 7.6 mg/dL (8.5-10.1); Chloride, Blood 104.0 mmol/L (98-108); Creatinine, Blood 1.08 mg/dL (0.60-1.20); Glucose, Blood 87.0 mg/dL (70-99); Potassium, Blood 4.3 mmol/L (3.5-5.5); Sodium, Blood 137.0 mmol/L (136-145)
[2025-01-17 07:58] VITALS: BP 95/72
[2025-01-17 11:48] VITALS: BP 124/74
[2025-01-17 15:49] VITALS: BP 95/68
--- NOTE | 2025-01-17 18:32 | NUR ---
SHIFT SUMMARY PT CONT LEVEL OF CARE. PT NOTED TO BE A&OX4 AND SBA WITH AMBULATION. PT REMAINS ON 2L/NC ITS PT BASELINE. PLAN IS TO CONT WITH IV ABX FOR NEXT TO DAYS. HELD PT BP MEDICATION AND DIURETICS THIS SHIFT PT BP NOTED TO BE LOW. PROVIDER NOTIFED AND WAS OKAY WITH THIS JUST WANTED TO CONT TO MONITIOR PT. REPORT CALLED AND GIVEN TO RN AT [facility] WHOM ALSO STATED THAT PT BP HAS NOTED TO BE RUNNING LOW THIS PAST WEEK.
[2025-01-17 19:09] VITALS: BP 104/72
[2025-01-17 23:39] VITALS: BP 108/62
--- NOTE | 2025-01-18 03:53 | NUR ---
SHIFT SUMMARY ADMITTED FOR COPD EXACERBATION. FULL CODE. IV ANTIB RX ARE SCHEDULED. [facility]. TELEMETRY: AFIB @ 76 BPM. 1 ASSIST W/FWW. CARDIAC DIET. 2 LPM O2 VIA NC IS BASELINE. TORADOL AND TYLENOL GIVEN THIS SHIFT FOR PAIN. HE LIVES AT [facility]. A&O X4. MONITORING SOFT BP'S.
[2025-01-18 04:21] VITALS: BP 118/79
[2025-01-18 07:27] VITALS: BP 101/74
[2025-01-18 11:30] VITALS: BP 107/64
[2025-01-18] MEDS ORDERED: NS 100 ML IV ONE (12:11)
[2025-01-18 15:38] VITALS: BP 91/68
[2025-01-18 19:22] VITALS: BP 103/59
--- NOTE | 2025-01-18 19:38 | NUR ---
SUMMARY PT SAT UP IN CHAIR MOST OF DAY. RECEIVING NEB TREATMENTS FROM RT. LUNGS STILL SOUND CRACKLY/DIM IN BASES. PT HAVING PRODUCTIVE COUGH. INCENTIVE LORETA AND FLUTTER VALVE USE. TELE-PT IN AFIB, LOW 100'S, HELD B/P MEDS DUE TO VITALS SIGNS. PLAN HOME WITH HOME HEALTH BACK TO [place] ON MONDAY. RECIEVED IV ANTIBIOTICS TODAY.
[2025-01-18 23:55] VITALS: BP 117/75
[2025-01-19 03:35] VITALS: BP 94/66
--- NOTE | 2025-01-19 05:19 | NUR ---
SUMMARY: PT A/OX4, CALLS APPROPRIATELY TO SPECIFY NEEDS AND IS PLEASANT AND COOPERATIVE W/CARE. HE'S UP W/1PA AND FWW AND SITS AT EOB/REPOSITIONS SELF AD MAAME. HE REMAINS ON 3L 02 VIA NC W/SPO2 WNL. INTERMITTENT SCATTERED WHEEZES AND COARSE L.LOWER LOBE AUSCULATED. I/S AND FLUTTER ENCOURAGED AND RT PROVIDED NEBS PER EMAR. SOB AND DYSPNEA NOTED W/EXERTION BUT PT RECOVERS W/REST. HE REMAINS AFIB AT 80'S-100'S BPM ON TELE AND BECOMES MORE TACHY W/ACTIVITY. PT ALSO SLIGHTLY HYPOTENSIVE AT TIMES W/SBP 90'S-100'S BUT REMAINS ASYMPTOMATIC OF CARDIAC DISTRESS. IV ABX RECIEVED FOR PNM THEN SL'D. PT REPORTS L.FLANK PAIN, PRN OXYCODONE PROVIDED FOR TOLERABLE EFFECT. HE ALSO C/O NAUSEA THIS AM W/NEW [place] ORDER OBTAINED AND MED RECEIVED. NO ACUTE CHANGES, VSS/AFEBRILE. PLAN TO D/C HOME TO [facility], POSSIBLY W/HOME HEALTH. WILL REPORT TO DAY RN.
[2025-01-19] MEDS ORDERED: Ondansetron HCl 2 MG / ML 2ML Vial IV PRN (05:25)
[2025-01-19 08:20] VITALS: BP 107/76
[2025-01-19 08:38] LABS: Hematocrit 37.7 % (37.0-53.0); Hemoglobin 11.8 g/dL (13.5-17.5); Mean Corpuscular HGB Conc 31.3 g/dL (31.5-36.5); Mean Corpuscular Volume 103 fL (80-100); NRBC ABSOLUTE 0.00 K/mm3 (0.00-0.02); NRBC Auto 0.0 /100 WBC (0.0-0.2); Platelet Count 169 K/mm3 (150-400); RDW Coefficient Variation 16.6 % (11.7-14.2); RDW Standard Deviation 62.8 fL (35.1-46.3)
[2025-01-19 08:56] LABS: Anion Gap 6.0 mmol/L (3-11); Blood Urea Nitrogen 26.0 mg/dL (8-24); CO2, Blood 31.0 mmol/L (21-32); Calcium, Blood 7.7 mg/dL (8.5-10.1); Chloride, Blood 105.0 mmol/L (98-108); Creatinine, Blood 0.99 mg/dL (0.60-1.20); Glucose, Blood 92.0 mg/dL (70-99); Potassium, Blood 4.7 mmol/L (3.5-5.5); Sodium, Blood 137.0 mmol/L (136-145)
[2025-01-19 12:12] VITALS: BP 95/63
--- NOTE | 2025-01-19 15:56 | NUR ---
SUMMARY PT COMPLETED COURSE OF IV ANTIBIOTICS. PT CONTINUES TO HAVE COURSE LUNG SOUNDS TO LEFT SIDE WITH A MOIST PRODUCTIVE COUGH WITH ASSOCIATED PAIN TO LEFT FLANK. DR. ALVAREZ WAS NOTIFIED, STATES HE NEEDS TO CONTINUE WORKING ON INCENTIVE SPIROMETER THERAPY AND THAT SHE WILL ADD SOME IBUPROFEN PT IS TO DISCHARGE TOMORROW BACK TO ASSISTED LIVING. PRN TYLENOL AND OXY GIVEN TO PATIENT TO HELP WITH PAIN THIS AM. HELD ONE DIURETIC AND ONE B/P MED PER CLINICAL JUDGEMENT DUE TO LOW BLOOD PRESSURES THIS AM. NO EVENTS ON TELE. BILAT IV'S PATENT AND SALINE LOCKED. PT WORRIED ABOUT GOING HOME TOMORROW WITH THE LITTLE ASSISTANCE AVAILABLE BUT ALSO WANTS TO GO HOME. PT A LITTLE TEARFUL THIS AFTERNOON RELATED TO ANX OF NEW CHANGES.
[2025-01-19 16:13] VITALS: BP 106/80
--- NOTE | 2025-01-19 17:02 | NUR ---
NOTIFIED DR. ALVAREZ THIS EVENING THAT THERE ARE NO PARAMETERS ON DIURETICS OR B/P MEDS. TO REVIEW TOMORROW PRIOR TO DC AND ADD PARAMETERS. ORDERED TO GIVE IV LASIX NOW AND TO PUSH, AND HOLD PO DOSE THIS EVENING. ADDED IBUPROFEN FOR PAIN SINCE TORODOL DC'D AND PT GOING HOME SOON.
[2025-01-19] MEDS ORDERED: Furosemide 10 MG / ML 2ML Vial IV ONE (17:05)
[2025-01-19 19:55] VITALS: BP 100/74
[2025-01-19 21:03] VITALS: BP 104/84
[2025-01-20 00:36] VITALS: BP 94/59
[2025-01-20 03:42] VITALS: BP 93/69
--- NOTE | 2025-01-20 06:37 | NUR ---
SUMMARY; Pt A&O x4 sitting in chair at beginning of shift. Lung sounds auscultated with crackles found in LLL. Patient medicated with scheduled medications per EMR. The patient laid down for bed to sleep at around 2300, when the patient requested to have his prn dose of Oxycodone for pain in the L flank rated at 8/10 on the 0-10 pain scale. Pt awoke from sleep around 0330, stating that he is still experiencing L sided flank pain, rated at a 7/10. Tylenol given per emr. Pt experiencing productive cough at this time, reassessed lung sounds, and vitals rechecked. Crackles heard all throughout the L lung field w/ O2 at 97% on 2 L NC. Patient able to clear sputum via cough and upper L lung field crackles are absent. Pt admits to not using ordered incentive spirometer or flutter valve due to pain that is experienced upon use. Pt educated on the interventions of deep breathing, coughing, and incentive spirometer/flutter valve. Pt was afib on tele at 70-80 bpm until 433 when pt converted to nsr. Currently nsr with 1st degree block at 60 bpm. BPs trend borderline hypotensive, however pt denies acute cardiac symptoms, otherwise VSS. Will notify oncoming RN at shift change.
[2025-01-20 07:42] VITALS: BP 105/80
[2025-01-20 09:37] LABS: Hematocrit 35.9 % (37.0-53.0); Hemoglobin 11.4 g/dL (13.5-17.5); Mean Corpuscular HGB Conc 31.8 g/dL (31.5-36.5); Mean Corpuscular Volume 103 fL (80-100); NRBC ABSOLUTE 0.00 K/mm3 (0.00-0.02); NRBC Auto 0.0 /100 WBC (0.0-0.2); Platelet Count 160 K/mm3 (150-400); RDW Coefficient Variation 16.6 % (11.7-14.2); RDW Standard Deviation 63.6 fL (35.1-46.3)
[2025-01-20 10:01] LABS: Anion Gap 5.0 mmol/L (3-11); Blood Urea Nitrogen 26.0 mg/dL (8-24); CO2, Blood 33.0 mmol/L (21-32); Calcium, Blood 7.8 mg/dL (8.5-10.1); Chloride, Blood 101.0 mmol/L (98-108); Creatinine, Blood 0.93 mg/dL (0.60-1.20); Glucose, Blood 142.0 mg/dL (70-99); Potassium, Blood 4.4 mmol/L (3.5-5.5); Sodium, Blood 135.0 mmol/L (136-145)
[2025-01-20 11:14] VITALS: BP 123/80
[2025-01-20] MEDS ORDERED: PANT20 PO (11:52)
[2025-01-20] MEDS ORDERED: TRAM50 PO (11:56)
--- NOTE | 2025-01-20 14:09 | NUR ---
DISCHARGE NOTE PATIENT EDUCATED ON DISCHARGE INSTRUCTIONS AND MEDICATIONS/MED PARAMETERS. HARD SCRIPT FOR TRMADAOL IN DISCHARGE PACKET. FRIEND KOMAL PICKED UP. IV'S REMOVED. [facility]. PT EDUCATED ON IMPORTANCE OF CHECKING BLOOD PRESSURES PRIOR TO TAKING MEDS, AND PARAMETERS FOR LASIX AND METOPROLOL. PT VERBALIZED UNDERSTANDING. ESCORTED DOWN VIA WHEELCHAIR. FRIEND KOMAL PROVIDED PORTABLE OXYGEN FOR PATIENT. NO NEW CONCERNS PRIOR TO DC.
== END 2025-01-20 13:26 | disposition home health service (06) | DRG 177 ==
LOC: ER 00:08 → MEDS 06:46 → ERHOLD 06:46 → EDBEDREQSVC 07:01 → MEDS 10:22 → PCU 01-09 09:49 → MEDS 01-13 01:53 → ENPENDDIS 01-20 10:57 → MEDS 01-20 13:26
PROVIDERS: Internal Medicine; Student in an Organized Health Care Education/Training Program; ADMIT Student in an Organized Health Care Education/Training Program
DX: J15.1 Pneumonia due to Pseudomonas (principal); J96.21 Acute and chronic respiratory failure with hypoxia; I50.22 Chronic systolic (congestive) heart failure; J44.1 Chronic obstructive pulmonary disease with (acute) exacerbation; J44.0 Chronic obstructive pulmonary disease with (acute) lower respiratory infection; E87.1 Hypo-osmolality and hyponatremia; I48.0 Paroxysmal atrial fibrillation; M19.90 Unspecified osteoarthritis, unspecified site; E89.0 Postprocedural hypothyroidism; F12.90 Cannabis use, unspecified, uncomplicated; D64.9 Anemia, unspecified; I11.0 Hypertensive heart disease with heart failure; E83.39 Other disorders of phosphorus metabolism; N40.0 Benign prostatic hyperplasia without lower urinary tract symptoms; F41.8 Other specified anxiety disorders; F17.210 Nicotine dependence, cigarettes, uncomplicated; Z79.01 Long term (current) use of anticoagulants; Z79.51 Long term (current) use of inhaled steroids; Z98.890 Other specified postprocedural states; Z79.84 Long term (current) use of oral hypoglycemic drugs; Z79.890 Hormone replacement therapy; Z79.899 Other long term (current) drug therapy; W18.30XA Fall on same level, unspecified, initial encounter
CPT/HCPCS: 0528U; 36415; 71045; 71046; 71260; 74160; 80048; 80053; 80069; 82947; 83605; 83735; 83880; 84145; 85025; 85027; 85610; 85730; 87040; 87070; 87077; 87186; 87205; 94640; 94664; 94760; 94762; 96374-59; 97110; 97112; 97116; 97162; 97165; 97530; 99285-25; A9270; J0456; J1650; J1885; J1938; J2405; J2470; J2543; J2919; J7040; J7050; J7512; Q9967